=== PATIENT | female | born 1955 | race Caucasian/White ===

== ENCOUNTER 2017-05-05 11:59 | Inpatient (IN) | payer OTHER ==
[2017-05-05] VITALS (13 sets, daily range): BP systolic 75–138; BP diastolic 40–81
[~2017-05-05] VITALS: Ht 165.1 cm; Wt 49.9 kg
[2017-05-05] MEDS ORDERED: Sodium Chloride 500ML 500 ML IV ONE (12:11)
[2017-05-05 13:01] LABS: MEAN CORPUSCULAR HEMOGLOBIN 23.1 PG (27.0-31.0); MEAN CORPUSCULAR HGB CONC 30.3 G/DL (32.0-36.0); MEAN CORPUSCULAR VOLUME 76 FL (80-99); MEAN PLATELET VOLUME 5.5 FL (6.5-10.1); PLATELET COUNT 842 K/UL (150-450); RED BLOOD COUNT 2.79 M/UL (4.20-5.40); RED CELL DISTRIBUTION WIDTH 15.7 % (11.6-14.8); WHITE BLOOD COUNT 59.1 K/UL (4.8-10.8)
[2017-05-05 13:05] LABS: INR 1.2 (0.9-1.1)
[2017-05-05 13:24] LABS: APPEARANCE,URINE CLEAR; KETONES,URINE NEGATIVE (NEGATIVE); NITRITE,URINE NEGATIVE (NEGATIVE); PH,URINE 5 (4.5-8.0); PROTEIN,URINE NEGATIVE (NEGATIVE); UROBILINOGEN,URINE NORMAL MG/DL (0.0-1.0)
[2017-05-05 13:26] LABS: LEUKOCYTE ESTERASE ,URINE 2+ (NEGATIVE)
[2017-05-05 13:27] LABS: ALANINE AMINOTRANSFERASE 7 U/L (12-78); ALBUMIN/GLOBULIN RATIO 0.4 (1.0-2.7); ANION GAP 5 mmol/L (5-15); ASPARTATE AMINO TRANSFERASE 28 U/L (15-37); CALCIUM 8.5 MG/DL (8.5-10.1); CARBON DIOXIDE 30 MMOL/L (21-32); CHLORIDE 99 MMOL/L (98-107); CREATININE 0.4 MG/DL (0.55-1.30); GLOMERULAR FILTRATION RATE > 60 mL/min (>60); POTASSIUM 4.5 MMOL/L (3.5-5.1); SODIUM 134 MMOL/L (136-145); TOTAL PROTEIN 5.5 G/DL (6.4-8.2)
[2017-05-05 13:39] LABS: BAND NEUTROPHILS % (MANUAL) 2 % (0-8); BASOPHILS % (MANUAL) 0 % (0-2); EOSINOPHILS % (MANUAL) 0 % (0-3); LYMPHOCYTES % (MANUAL) 6 % (20-45); NEUTROPHILS % (MANUAL) 89 % (45-75); PLATELET ESTIMATE INCREASED; PLATELET MORPHOLOGY NORMAL; TOTAL CELLS COUNTED 100
[2017-05-05 13:40] LABS: ANISOCYTOSIS 1+; HYPOCHROMASIA 2+
[2017-05-05 13:42] LABS: BACTERIA,URINE FEW /HPF; RBC,URINE 0-2 /HPF (0 - 2); SQUAMOUS EPITHELIAL CELL,UR FEW /LPF (NONE/OCC); YEAST,URINE FEW /HPF
--- NOTE | 2017-05-05 14:42 | Emergency Room Report ---
History of Present Illness General Chief Complaint: Abnormal Labs Source: Patient, EMS Present Illness HPI 62-year-old female presents to ED for evaluation. Patient was was sent to ER for abnormal labs. Hemoglobin of 5.7. Patient has history of endometrial cancer. Patient denies any active bleeding at this time. Denies any abdominal pain. Denies any fevers or chills. Denies chest pain shortness of breath. No aggravating or leading factors. Denies any other associated symptoms Allergies: Coded Allergies: No Known Allergies (Unverified , 05/05/17) Patient History Past Medical History: DM, other - endometrial Past Surgical History: none Pertinent Family History: none Social History: Denies: smoking, alcohol use, drug use Now: No Immunizations: UTD Reviewed Nursing Documentation: PMH: Agreed, PSxH: Agreed Nursing Documentation-PMH Past Medical History: No History, Except For Hx Pacemaker: No - ANEMIA Hx Diabetes: Yes Hx Cancer: Yes - UTERINE Hx Gastrointestinal Problems: No - DVT Review of Systems All Other Systems: negative except mentioned in HPI Physical Exam Vital Signs Date Time Temp Pulse Resp B/P (MAP) Pulse Ox O2 Delivery O2 Flow Rate FiO2 05/05/17 11:59 98.8 106 16 93/59 97 Room Air Sp02 EP Interpretation: reviewed, normal General Appearance: no apparent distress, alert, GCS 15, non-toxic, cachetic Head: normocephalic, atraumatic Eyes: bilateral eye normal inspection, bilateral eye PERRL ENT: hearing grossly normal, normal pharynx, no angioedema, normal voice Neck: full range of motion, supple/symm/no masses Respiratory: chest non-tender, lungs clear, normal breath sounds, speaking full sentences Cardiovascular #1: regular rate, rhythm, no edema Cardiovascular #2: 2+ carotid (R), 2+ carotid (L), 2+ radial (R), 2+ radial (L) , 2+ dorsalis pedis (R), 2+ dorsalis pedis (L) Gastrointestinal: normal bowel sounds, non tender, soft, non-distended, no guarding, no rebound Rectal: deferred Genitourinary: normal inspection, no CVA tenderness Musculoskeletal: back normal, gait/station normal, normal range of motion, non- tender Neurologic: alert, oriented x3, responsive, motor strength/tone normal, sensory intact, speech normal Psychiatric: judgement/insight normal, memory normal, mood/affect normal, no suicidal/homicidal ideation Reflexes: 3+ bicep (R), 3+ bicep (L), 3+ tricep (R), 3+ tricep (L), 3+ knee (R) , 3+ knee (L) Skin: normal color, no rash, warm/dry, well hydrated Lymphatic: no adenopathy Medical Decision Making Diagnostic Impression: Primary Impression: Anemia Qualified Codes: D64.9 - Anemia, unspecified ER Course Hospital Course 62-year-old female presents to ED for evaluation of possible anemia, with possible transfusion Differential diagnoses include: anemia requiring transfusion, microcytic anemia , macrocytic anemia, heavy blood loss Clinical course Patient placed on stretcher. After initial history and physical I ordered labs including CBC and type and screen. Labs- WBC 59.1 hemoglobin/hematocrit 6.4, electrolytes ok 2 units PRBCs ordered. Patient hypotensive but responded to IV fluids. patient will be admitted to Dr Mayers Diagnosis - anemia Admitted to telemetry in serious condition Labs Test 05/05/17 12:30 05/05/17 13:00 White Blood Count 59.1 K/UL (4.8-10.8) Red Blood Count 2.79 M/UL (4.20-5.40) Hemoglobin 6.4 G/DL (12.0-16.0) Hematocrit 21.3 % (37.0-47.0) Mean Corpuscular Volume 76 FL (80-99) Mean Corpuscular Hemoglobin 23.1 PG (27.0-31.0) Mean Corpuscular Hemoglobin Concent 30.3 G/DL (32.0-36.0) Red Cell Distribution Width 15.7 % (11.6-14.8) Platelet Count 842 K/UL (150-450) Mean Platelet Volume 5.5 FL (6.5-10.1) Neutrophils (%) (Auto) % (45.0-75.0) Lymphocytes (%) (Auto) % (20.0-45.0) Monocytes (%) (Auto) % (1.0-10.0) Eosinophils (%) (Auto) % (0.0-3.0) Basophils (%) (Auto) % (0.0-2.0) Differential Total Cells Counted 100 Neutrophils % (Manual) 89 % (45-75) Lymphocytes % (Manual) 6 % (20-45) Monocytes % (Manual) 3 % (1-10) Eosinophils % (Manual) 0 % (0-3) Basophils % (Manual) 0 % (0-2) Band Neutrophils 2 % (0-8) Platelet Estimate Increased Platelet Morphology Normal Hypochromasia 2+ Anisocytosis 1+ Prothrombin Time 13.0 SEC (9.30-11.50) Prothromb Time International Ratio 1.2 (0.9-1.1) Activated Partial Thromboplast Time 29 SEC (23-33) Sodium Level 134 MMOL/L (136-145) Potassium Level 4.5 MMOL/L (3.5-5.1) Chloride Level 99 MMOL/L (98-107) Carbon Dioxide Level 30 MMOL/L (21-32) Anion Gap 5 mmol/L (5-15) Blood Urea Nitrogen 14 mg/dL (7-18) Creatinine 0.4 MG/DL (0.55-1.30) Estimat Glomerular Filtration Rate > 60 mL/min (>60) Glucose Level 121 MG/DL (74-106) Calcium Level 8.5 MG/DL (8.5-10.1) Total Bilirubin 0.1 MG/DL (0.2-1.0) Aspartate Amino Transf (AST/SGOT) 28 U/L (15-37) Alanine Aminotransferase (ALT/SGPT) 7 U/L (12-78) Alkaline Phosphatase 228 U/L (46-116) Troponin I 0.000 ng/mL (0.000-0.056) Total Protein 5.5 G/DL (6.4-8.2) Albumin 1.7 G/DL (3.4-5.0) Globulin 3.8 g/dL Albumin/Globulin Ratio 0.4 (1.0-2.7) Urine Color Pale yellow Urine Appearance Clear Urine pH 5 (4.5-8.0) Urine Specific [place] 1.010 (1.005-1.035) Urine Protein Negative (NEGATIVE) Urine Glucose (UA) Negative (NEGATIVE) Urine Ketones Negative (NEGATIVE) Urine Occult Blood Negative (NEGATIVE) Urine Nitrite Negative (NEGATIVE) Urine Bilirubin Negative (NEGATIVE) Urine Urobilinogen Normal MG/DL (0.0-1.0) Urine Leukocyte Esterase 2+ (NEGATIVE) Urine RBC 0-2 /HPF (0 - 2) Urine WBC 2-4 /HPF (0 - 2) Urine Squamous Epithelial Cells Few /LPF (NONE/OCC) Urine Bacteria Few /HPF (NONE) Urine Yeast Few /HPF (NONE) Last Vital Signs Date Time Temp Pulse Resp B/P (MAP) Pulse Ox O2 Delivery O2 Flow Rate FiO2 05/05/17 12:10 98.8 101 28 75/40 97 Room Air Status: improved Disposition: ADMITTED INPATIENT Condition: Serious Referrals: [facility],REFERRING (PCP) PORFIRIO HARDWICK M.D. May 05, 2017 14:42
[2017-05-05] MEDS ORDERED: GLUCAGON EMERGEN1 MG IJ (15:05)
[2017-05-05] MEDS ORDERED: MULTIPLE VITAM1 EAC6 PO (15:05)
[2017-05-05] MEDS ORDERED: ANUSOL-HC30 GM RC (15:05)
[2017-05-05] MEDS ORDERED: ELIQUIS5 MG PO (15:05)
[2017-05-05] MEDS ORDERED: MILK OF MA400 MG/51 ORAL (15:05)
[2017-05-05] MEDS ORDERED: HUMALOG KW200 UNIT/1 SQ (15:05)
[2017-05-05] MEDS ORDERED: DEXTROSE 50%-WA50 ML IV (15:05)
[2017-05-05] MEDS ORDERED: GLUCOSE BITS1 GM PO (15:05)
[2017-05-05] MEDS ORDERED: MORPHINE ORAL (15:05)
[2017-05-05] MEDS ORDERED: BACLOFEN10 MG ORAL (15:05)
[2017-05-05] MEDS ORDERED: BISACODYL5 MG ORAL (15:05)
[2017-05-05] MEDS ORDERED: FERROUS SULFAT325 MG ORAL (15:05)
[2017-05-05] MEDS ORDERED: PERCOCET 5-3251 EACH ORAL (15:06)
[2017-05-05] MEDS ORDERED: OXYCODONE HCL10 MG ORAL (15:06)
[2017-05-05] MEDS ORDERED: TRAMADOL HCL50 MG ORAL (15:16)
[2017-05-05] MEDS ORDERED: ZOFRAN 4 MG4 MG/2 ML ORAL (15:16)
[2017-05-05] MEDS ORDERED: SENOKOT8.6 MG PO (15:16)
[2017-05-05] MEDS ORDERED: Morphine Sulfate 2mg/ml Inj IVP ONE (18:00)
[2017-05-05] MEDS ORDERED: Miralax 17gm pkt ORAL PRN (20:15)
[2017-05-05] MEDS ORDERED: LORazepam Inj 2mg/ml 1ml IV PRN (20:15)
[2017-05-05] MEDS ORDERED: oxyCODONE 5mg IR tab ORAL PRN (20:15)
[2017-05-05] MEDS ORDERED: Mylanta II UD 30ml ORAL PRN (20:15)
[2017-05-05] MEDS ORDERED: Zolpidem 5mg tab ORAL PRN (20:15)
[2017-05-05] MEDS: Heparin 5000 units/ml inj SUBQ SCH (21:00)
[2017-05-05] MEDS: NovoLOG Insulin Flexpen SUBQ SCH (21:00)
[2017-05-06 00:17] VITALS: BP 120/61
[2017-05-06] MEDS: Morphine Sulfate 4mg/ml Inj IVP PRN ×5 (00:39→22:07)
[2017-05-06 04:00] VITALS: BP 131/70
[2017-05-06] MEDS: NovoLOG Insulin Flexpen SUBQ SCH ×4 (06:54→21:35)
[2017-05-06 08:19] LABS: MEAN CORPUSCULAR HEMOGLOBIN 26.9 PG (27.0-31.0); MEAN CORPUSCULAR HGB CONC 33.3 G/DL (32.0-36.0); MEAN CORPUSCULAR VOLUME 81 FL (80-99); MEAN PLATELET VOLUME 5.5 FL (6.5-10.1); PLATELET COUNT 828 K/UL (150-450); RED BLOOD COUNT 3.68 M/UL (4.20-5.40); RED CELL DISTRIBUTION WIDTH 16.9 % (11.6-14.8)
[2017-05-06 08:42] VITALS: BP 139/79
[2017-05-06 09:00] LABS: ALANINE AMINOTRANSFERASE 7 U/L (12-78); ALBUMIN/GLOBULIN RATIO 0.4 (1.0-2.7); ANION GAP 9 mmol/L (5-15); ASPARTATE AMINO TRANSFERASE 12 U/L (15-37); CALCIUM 8.4 MG/DL (8.5-10.1); CARBON DIOXIDE 26 MMOL/L (21-32); CHLORIDE 100 MMOL/L (98-107); CHOLESTEROL 126 MG/DL (< 200); CHOLESTEROL/HDL RATIO 6.3 (3.3-4.4); CREATININE 0.4 MG/DL (0.55-1.30); GLOMERULAR FILTRATION RATE > 60 mL/min (>60); POTASSIUM 3.5 MMOL/L (3.5-5.1); SODIUM 135 MMOL/L (136-145); TOTAL PROTEIN 6.1 G/DL (6.4-8.2)
[2017-05-06] MEDS: Heparin 5000 units/ml inj SUBQ SCH ×2 (09:00→21:00)
[2017-05-06 11:02] LABS: ANISOCYTOSIS 1+; BAND NEUTROPHILS % (MANUAL) 2 % (0-8); BASOPHILS % (MANUAL) 0 % (0-2); EOSINOPHILS % (MANUAL) 0 % (0-3); HYPOCHROMASIA 1+; LYMPHOCYTES % (MANUAL) 4 % (20-45); NEUTROPHILS % (MANUAL) 89 % (45-75); PLATELET ESTIMATE INCREASED; PLATELET MORPHOLOGY NORMAL; TOTAL CELLS COUNTED 100
[2017-05-06 12:09] VITALS: BP 131/79
--- NOTE | 2017-05-06 13:52 | History and Physical ---
History of Present Illness General Date patient seen: May 05, 2017 Reason for Hospitalization: Abnormal Labs Present Illness HPI 62-year-old female with DM, endometrium malignancy, bed bound, DVT, Decubiti ulcers. presents to ED for evaluation of Hemoglobin of 5.7. Denies any abdominal pain. Denies any fevers or chills. Denies chest pain shortness of breath. Blood tranfusion has been ordered Allergies: Coded Allergies: No Known Allergies (Unverified , 05/05/17) Medication History Scheduled Apixaban (Eliquis), 5 MG PO BID, (Reported) Baclofen* (Baclofen*), 10 MG ORAL EVERY 12 HOURS, (Reported) Ferrous Sulfate* (Ferrous Sulfate*), 325 MG ORAL TWICE A DAY, (Reported) Insulin Lispro (Humalog Kwikpen), 6 UNITS SQ BEFORE MEALS AND HS, (Reported) Multivitamin (Multiple Vitamins), 1 EACH PO DAILY, (Reported) Scheduled PRN Bisacodyl* (Dulcolax*), 5 MG ORAL DAILY PRN for Constipation, (Reported) Dextrose (Glucose Bits), 1 GM PO NEEDED PRN for LOW BLOOD SUGAR, (Reported) Dextrose 50 % in Water (Dextrose 50%-Water Syringe), 50 ML IV NEEDED PRN for Hypoglycemia, (Reported) Glucagon,Human Recombinant (Glucagon Emergency Kit), 1 MG IJ NEEDED PRN for LOW BLOOD SUGAR, (Reported) Hydrocortisone Hc 2.5% Cream (Anusol-Hc 2.5% Cream), 30 GM RC EVERY 6 HOURS PRN for Hemorroidal Pain, (Reported) Magnesium Hydroxide* (Milk Of Magnesia*), 15 ML ORAL DAILY PRN for Constipation, (Reported) Ondansetron* (Zofran*), 4 MG ORAL Q6H PRN for Nausea & Vomiting, (Reported) Oxycodone Hcl* (Oxycodone Hcl*), 10 MG ORAL Q4H PRN for For Pain, (Reported) Oxycodone/Acetaminophen 5-325* (Percocet 5-325 Mg Tablet*), 2 TAB ORAL Q4H PRN for For Pain, (Reported) Sennosides (Senokot), 2 TAB PO EVERY 24 HOURS PRN for Constipation, (Reported) Tramadol Hcl* (Ultram*), 50 MG ORAL Q6H PRN for For Pain, (Reported) [Morphine], 2 MG ORAL EVERY 4 HOURS PRN for For Pain, (Reported) Patient History Healthcare decision maker Krystal Resuscitation status Full Code Advanced Directive on File No Past Medical/Surgical History Past Medical/Surgical History: (1) Endometrial cancer (2) Diabetes mellitus Review of Systems All Other Systems: negative except mentioned in HPI Physical Exam General Appearance: WD/WN Lines, tubes and drains: peripheral HEENT: normocephalic, atraumatic Neck: non-tender, normal alignment Respiratory/Chest: chest wall non-tender, lungs clear Breasts: no masses Cardiovascular/Chest: normal peripheral pulses Abdomen: normal bowel sounds, non tender Genitourinary/Rectal: normal genital exam, normal rectal exam Last 24 Hour Vital Signs Date Time Temp Pulse Resp B/P (MAP) Pulse Ox O2 Delivery O2 Flow Rate FiO2 05/06/17 12:09 97.5 98 18 131/79 97 Room Air 05/06/17 08:42 97.7 100 18 139/79 96 Room Air 05/06/17 04:00 97.6 101 20 131/70 94 Room Air 05/06/17 04:00 100 05/06/17 00:17 97.4 97 19 120/61 94 Room Air 05/06/17 00:00 111 05/05/17 20:40 97.2 98 22 118/68 96 Room Air 05/05/17 20:17 97.4 101 18 125/65 94 Room Air 05/05/17 20:00 98 05/05/17 18:55 97.9 99 18 120/60 94 Room Air 05/05/17 18:20 98.3 104 24 126/61 99 Room Air 05/05/17 18:08 104 24 126/61 99 Room Air 05/05/17 17:30 98.3 99 20 135/64 96 Room Air 05/05/17 17:00 98.1 99 20 134/59 96 Room Air 05/05/17 16:45 98.1 99 24 121/51 97 Room Air 05/05/17 16:02 98.1 97 24 128/81 96 Room Air 05/05/17 15:30 98.1 98 25 129/60 96 Room Air 05/05/17 15:13 98.3 100 18 137/61 97 Room Air 05/05/17 15:08 98.1 101 25 126/58 97 Room Air 05/05/17 15:02 98.1 103 23 138/61 98 Room Air 05/05/17 14:59 98.1 100 21 Intake and Output 05/06/17 05/07/17 19:00 07:00 Intake Total 120 ml Balance 120 ml Intake Oral 120 ml Laboratory Tests Test 05/06/17 07:25 White Blood Count 54.0 K/UL (4.8-10.8) *H Red Blood Count 3.68 M/UL (4.20-5.40) L Hemoglobin 9.9 G/DL (12.0-16.0) #L Hematocrit 29.8 % (37.0-47.0) #L Mean Corpuscular Volume 81 FL (80-99) Mean Corpuscular Hemoglobin 26.9 PG (27.0-31.0) L Mean Corpuscular Hemoglobin Concent 33.3 G/DL (32.0-36.0) Red Cell Distribution Width 16.9 % (11.6-14.8) H Platelet Count 828 K/UL (150-450) H Mean Platelet Volume 5.5 FL (6.5-10.1) L Neutrophils (%) (Auto) % (45.0-75.0) Lymphocytes (%) (Auto) % (20.0-45.0) Monocytes (%) (Auto) % (1.0-10.0) Eosinophils (%) (Auto) % (0.0-3.0) Basophils (%) (Auto) % (0.0-2.0) Differential Total Cells Counted 100 Neutrophils % (Manual) 89 % (45-75) H Lymphocytes % (Manual) 4 % (20-45) L Monocytes % (Manual) 5 % (1-10) Eosinophils % (Manual) 0 % (0-3) Basophils % (Manual) 0 % (0-2) Band Neutrophils 2 % (0-8) Platelet Estimate Increased H Platelet Morphology Normal Hypochromasia 1+ Anisocytosis 1+ Sodium Level 135 MMOL/L (136-145) L Potassium Level 3.5 MMOL/L (3.5-5.1) Chloride Level 100 MMOL/L (98-107) Carbon Dioxide Level 26 MMOL/L (21-32) Anion Gap 9 mmol/L (5-15) Blood Urea Nitrogen 11 mg/dL (7-18) Creatinine 0.4 MG/DL (0.55-1.30) L Estimat Glomerular Filtration Rate > 60 mL/min (>60) Glucose Level 118 MG/DL (74-106) H Calcium Level 8.4 MG/DL (8.5-10.1) L Total Bilirubin 0.4 MG/DL (0.2-1.0) Aspartate Amino Transf (AST/SGOT) 12 U/L (15-37) L Alanine Aminotransferase (ALT/SGPT) 7 U/L (12-78) L Alkaline Phosphatase 208 U/L (46-116) H Total Protein 6.1 G/DL (6.4-8.2) L Albumin 1.6 G/DL (3.4-5.0) L Globulin 4.5 g/dL Albumin/Globulin Ratio 0.4 (1.0-2.7) L Triglycerides Level 162 MG/DL (0-200) Cholesterol Level 126 MG/DL (< 200) LDL Cholesterol 84 mg/dL (<100) HDL Cholesterol 20 MG/DL (40-60) L Cholesterol/HDL Ratio 6.3 (3.3-4.4) H Height (Feet): 5 Height (Inches): 5.00 Weight (Pounds): 110 Medications Current Medications Medications (Trade) Dose Ordered Sig/[place] Route PRN Reason Start Time Stop Time Status Last Admin Dose Admin Acetaminophen (Tylenol) 650 mg Q4H PRN ORAL fever 05/05/17 20:15 06/04/17 20:14 Al Hydroxide/Mg Hydroxide (Mylanta II) 30 ml Q6H PRN ORAL dyspepsia 05/05/17 20:15 06/04/17 20:14 Baclofen (Lioresal) 10 mg EVERY 12 HOURS ORAL 05/05/17 21:00 06/04/17 20:59 05/06/17 08:23 Dextrose (Dextrose 50%) STAT PRN IV Hypoglycemia 05/05/17 20:15 06/04/17 20:14 Heparin Sodium (Porcine) (Heparin 5000 units/ml) 5,000 units EVERY 12 HOURS SUBQ 05/05/17 21:00 06/04/17 20:59 Insulin Aspart (NovoLOG) BEFORE MEALS AND HS SUBQ 05/05/17 21:00 06/04/17 20:59 05/06/17 12:52 Lorazepam (Ativan 2mg/ml 1ml) 0.5 mg Q4H PRN IV For Anxiety 05/05/17 20:15 05/12/17 20:14 Morphine Sulfate (Morphine Sulfate) 1 mg Q4H PRN IVP For Severe Pain 05/05/17 20:15 05/12/17 20:14 05/06/17 13:15 Ondansetron HCl (Zofran) 4 mg Q6H PRN IVP Nausea & Vomiting 05/05/17 20:15 06/04/17 20:14 Oxycodone HCl (Roxicodone) 10 mg Q4H PRN ORAL For Moderate Pain 05/05/17 20:15 05/12/17 20:14 05/06/17 03:45 Polyethylene Glycol (Miralax) 17 gm HSPRN PRN ORAL Constipation 05/05/17 20:15 06/04/17 20:14 Zolpidem Tartrate (Ambien) 5 mg HSPRN PRN ORAL Insomnia 05/05/17 20:15 05/12/17 20:14 Assessment/Plan Problem List: (1) Anemia ICD Codes: D64.9 - Anemia, unspecified SNOMED: 635871928 Qualifiers: Qualified Codes: D64.9 - Anemia, unspecified (2) Leukocytosis ICD Codes: D72.829 - Elevated white blood cell count, unspecified SNOMED: 287995263, 360541372 (3) Diabetes mellitus ICD Codes: E11.9 - Type 2 diabetes mellitus without complications SNOMED: 46904605 (4) Endometrial cancer ICD Codes: C54.1 - Malignant neoplasm of endometrium SNOMED: 841293466 Assessment/Plan prbc anemia w/u sepsis w/u wound care end of life discussion. RIN CALDWELL May 06, 2017 13:52
[2017-05-06] MEDS ORDERED: Amikacin Rx to dose MISC PRN (14:00)
--- NOTE | 2017-05-06 15:25 | Cardiology Report ---
APPROVED REPORT EKG Measurement Heart [id number] ND [id number] Sinus tachycardia Low voltage QRS Nonspecific T wave abnormality Abnormal ECG
[2017-05-06] MEDS ORDERED: Amikacin 750 MG in NS 110 ML IV SCH (15:30)
[2017-05-06 16:17] VITALS: BP 125/63
[2017-05-06] MEDS ORDERED: Vancomycin 1gm/D5W 275ml IVPB ONE ×2 (16:30)
[2017-05-06] MEDS ORDERED: Warfarin Sodium 5mg ORAL ONE (17:00)
--- NOTE | 2017-05-06 17:15 | General Progress Note ---
Subjective Allergies: Coded Allergies: No Known Allergies (Unverified , 05/05/17) Subjective Consult Note to follow Recommend to consider bone marrow biopsy in setting of elevated wbc and platelet count Recommend IVc filter in setting of acute thrombus and anemia Objective Last 24 Hour Vital Signs Date Time Temp Pulse Resp B/P (MAP) Pulse Ox O2 Delivery O2 Flow Rate FiO2 05/06/17 16:17 97.2 96 18 125/63 95 Room Air 05/06/17 12:09 97.5 98 18 131/79 97 Room Air 05/06/17 08:42 97.7 100 18 139/79 96 Room Air 05/06/17 04:00 97.6 101 20 131/70 94 Room Air 05/06/17 04:00 100 05/06/17 00:17 97.4 97 19 120/61 94 Room Air 05/06/17 00:00 111 05/05/17 20:40 97.2 98 22 118/68 96 Room Air 05/05/17 20:17 97.4 101 18 125/65 94 Room Air 05/05/17 20:00 98 05/05/17 18:55 97.9 99 18 120/60 94 Room Air 05/05/17 18:20 98.3 104 24 126/61 99 Room Air 05/05/17 18:08 104 24 126/61 99 Room Air 05/05/17 17:30 98.3 99 20 135/64 96 Room Air Intake and Output 05/06/17 05/07/17 19:00 07:00 Intake Total 240 ml Balance 240 ml Intake Oral 240 ml Laboratory Tests 05/06/17 07:25: White Blood Count 54.0*H, Red Blood Count 3.68L, Hemoglobin 9.9#L, Hematocrit 29.8#L, Mean Corpuscular Volume 81, Mean Corpuscular Hemoglobin 26.9L, Mean Corpuscular Hemoglobin Concent 33.3, Red Cell Distribution Width 16.9H, Platelet Count 828H, Mean Platelet Volume 5.5L, Neutrophils (%) (Auto) , Lymphocytes (%) (Auto) , Monocytes (%) (Auto) , Eosinophils (%) (Auto) , Basophils (%) (Auto) , Differential Total Cells Counted 100, Neutrophils % ( Manual) 89H, Lymphocytes % (Manual) 4L, Monocytes % (Manual) 5, Eosinophils % ( Manual) 0, Basophils % (Manual) 0, Band Neutrophils 2, Platelet Estimate IncreasedH, Platelet Morphology Normal, Hypochromasia 1+, Anisocytosis 1+, Sodium Level 135L, Potassium Level 3.5, Chloride Level 100, Carbon Dioxide Level 26, Anion Gap 9, Blood Urea Nitrogen 11, Creatinine 0.4L, Estimat Glomerular Filtration Rate > 60, Glucose Level 118H, Calcium Level 8.4L, Total Bilirubin 0.4, Aspartate Amino Transf (AST/SGOT) 12L, Alanine Aminotransferase ( ALT/SGPT) 7L, Alkaline Phosphatase 208H, Total Protein 6.1L, Albumin 1.6L, Globulin 4.5, Albumin/Globulin Ratio 0.4L, Triglycerides Level 162, Cholesterol Level 126, LDL Cholesterol 84, HDL Cholesterol 20L, Cholesterol/HDL Ratio 6.3H Height (Feet): 5 Height (Inches): 5.00 Weight (Pounds): 110 Yong Jeong May 06, 2017 17:15
[2017-05-06] MEDS ORDERED: Tubing IV Secondary IV ONE (17:31)
[2017-05-06] MEDS ORDERED: D5W 275ml ONE (17:31)
[2017-05-06] MEDS: Piperacillin/Tazobactam 3.375 GM in NS 110 ML IVPB SCH (19:02)
[2017-05-06 19:03] LABS: MEAN CORPUSCULAR HEMOGLOBIN 25.6 PG (27.0-31.0); MEAN CORPUSCULAR HGB CONC 31.6 G/DL (32.0-36.0); MEAN CORPUSCULAR VOLUME 81 FL (80-99); MEAN PLATELET VOLUME 5.4 FL (6.5-10.1); PLATELET COUNT 910 K/UL (150-450); RED BLOOD COUNT 3.89 M/UL (4.20-5.40); RED CELL DISTRIBUTION WIDTH 17.2 % (11.6-14.8)
[2017-05-06 19:13] LABS: WHITE BLOOD COUNT 53.7 K/UL (4.8-10.8)
--- NOTE | 2017-05-06 19:35 | Consultation ---
Consult Note Consult Note ID CONSULT: Dict# [id number] Assessment/Plan ASSESSMENT: 62 y/o female with: // Possible GNR UTI vs colonization - C&S pending, no sig pyuria or bacteruria // Stage IV sacral decubitus ulcer POA, not grossly infected - surveillance WCx pending // Leukocytosis, severe, afebrile r/o infection vs leukemoid vs myeloproliferative d/o - heme following, Jak2 pending, plan possible BMBx ( CA , DVT contributing ) - no localizing s/sx infection // Severe symptomatic microcytic anemia SP PRBCs - denies blood loss // Acute and chronic RLE DVT // Endometrial CA - no treatment to date // Thrombocytosis // DM2 // Physical deconditioning // NKDA // Full Code PLAN: - continue empiric IV vancomycin, zosyn d# 1 for now. Can DC amikacin d# 1 - consider BMBx, IVC filter - f/u cultures - f/u Jak2 - monitor CBC, temperatures - monitor BMP - transfuse as needed - wound care - PT/OT Thanks! Will follow ANA VALDEZ May 06, 2017 19:35
[2017-05-06 20:00] VITALS: BP 126/67
[2017-05-06 20:26] LABS: BAND NEUTROPHILS % (MANUAL) 1 % (0-8); LYMPHOCYTES % (MANUAL) 8 % (20-45); NEUTROPHILS % (MANUAL) 89 % (45-75); TOTAL CELLS COUNTED 100
[2017-05-06 20:27] LABS: ANISOCYTOSIS 1+; BASOPHILS % (MANUAL) 0 % (0-2); EOSINOPHILS % (MANUAL) 0 % (0-3); HYPOCHROMASIA 1+; PLATELET ESTIMATE INCREASED; PLATELET MORPHOLOGY NORMAL
--- NOTE | 2017-05-06 23:27 | Diagnostic Imaging Report ---
APPROVED REPORT CPT Code: 82716 Present Symptoms Comments: Pain RIGHT LEG: Venous imaging reveals acute thrombus in the proximal to distal superficial femoral vein. Venous imaging also reveals recanalized chronic thrombus in the superficial femoral vein. Large collateral vein noted anterior to the superficial femoral artery. The common femoral vein is patent. Greater saphenous vein also within normal limits. The popliteal and calf veins were not imaged (patient refused). KOBE Shelby was notified of abnormal results at 1425 hours.
[2017-05-07] VITALS (7 sets, daily range): BP systolic 116–143; BP diastolic 59–85
--- NOTE | 2017-05-07 02:45 | Consultation ---
DATE OF CONSULTATION: 05/06/2017 INFECTIOUS DISEASES CONSULTATION CONSULTING PHYSICIAN: Joe Soriano M.D. REQUESTING PHYSICIAN: Rin Mayers M.D. REASON FOR CONSULTATION: Leukocytosis. HISTORY OF PRESENT ILLNESS: This is a 62-year-old female, jail resident with a history of diabetes and endometrial cancer, presents to emergency room for evaluation of abnormal labs. Her hemoglobin was found to be less than 6. Repeat hemoglobin in the emergency room was 6.4. She was transfused packed red blood cells. She has serologic abnormalities including severe leukocytosis of more than 50 and thrombocytosis of more than 900. Urine culture is growing greater than 100,000 colony-forming units of Gram-negative rods, but urinalysis does not have significant pyuria or bacteriuria. She has a stage IV sacral decubitus ulcer that appears clean and surveillance wound culture is pending. She has evidence of acute and chronic right lower extremity DVT. The patient denies any localizing signs or symptoms of infection. She has been started on empiric IV vancomycin, Zosyn, and amikacin and Infectious Diseases now consulted to assist in management. PAST MEDICAL HISTORY: 1. Diabetes. 2. Endometrial cancer, no treatment to date. 3. Physical deconditioning. 4. Stage IV sacral decubitus ulcer. ALLERGIES: No known drug allergies. MEDICATIONS: 1. Vancomycin. 2. Zosyn. 3. Amikacin. FAMILY HISTORY: Reviewed and noncontributory. SOCIAL HISTORY: The patient is resident of a assisted facility. No active tobacco, alcohol, or illicit drug abuse. REVIEW OF SYSTEMS: As per history of present illness. Ten systems reviewed, all pertinent positives and negatives noted. PHYSICAL EXAMINATION: VITAL SIGNS: Maximum temperature 98.8, blood pressure 125/63, heart rate 96, respiratory rate 18, and saturating 95% on room air. GENERAL: No apparent distress, nontoxic appearing, thin. CARDIOVASCULAR: Regular rate and rhythm. No murmurs. PULMONARY: Clear to auscultation bilaterally. ABDOMEN: Bowel sounds present. Soft, nondistended, and nontender. EXTREMITIES: No edema. SKIN: No rash. Stage IV sacral decubitus ulcer appears clean. NEUROLOGICAL: Alert and oriented x3. LABORATORY DATA: White blood cell count 53.7 decreased from 59.1 with left shift, hemoglobin 9.9, increased from 6.4, and platelets 910,000. Sodium 135, potassium 3.5, chloride 100, bicarbonate 26, BUN 11, creatinine 0.4, and glucose 118. Troponin negative x1. Urinalysis negative. MICROBIOLOGY: 1. 05/05/2017 urine culture greater than 100,000 colony-forming units of Gram-negative rods. 2. 05/06/2017 wound culture pending. IMAGIN05/06/2017, acute and chronic right lower extremity DVT. ASSESSMENT: 1. Possible Gram-negative salome urinary tract infection versus colonization. Culture and sensitivity is pending and she has no significant pyuria or bacteriuria. She does have a Reyes catheter in place. 2. Stage IV sacral decubitus ulcer, present on admission and not grossly infected. Surveillance wound culture is pending. 3. Leukocytosis, severe and afebrile, rule out infection versus leukemoid versus myeloproliferative disorder. Hematology is following and JAK2 assay is pending and there is plan for possible bone marrow biopsy. Her cancer and deep venous thrombosis are contributing. She has no localizing signs or symptoms of infection. 4. Severe symptomatic microcytic anemia, status post transfusion. The patient denies blood loss. 5. Acute on chronic right lower extremity deep venous thrombosis. 6. Endometrial cancer with no treatment to date. 7. Thrombocytosis. 8. Diabetes type 2. 9. Physical deconditioning. 10. No known drug allergies. 11. Full Code. PLAN: 1. Continue empiric IV vancomycin and Zosyn day #1 for now. Discontinue amikacin. 2. Consider bone marrow biopsy and IVC filter. 3. Follow up cultures. 4. Follow objective. 5. Monitor CBC and temperatures. 6. Monitor BMP. 7. Transfuse as needed. 8. Wound care. 9. Physical and occupational therapy. Thank you. We will follow. Joe Soriano M.D. DR: Felipe JOB#: [id number] CC: Chanell Burnett M.D ; FAX#: [phone] RIN MAYERS M.D.; FAX#: [phone]
[2017-05-07] MEDS: Morphine Sulfate 4mg/ml Inj IVP PRN ×3 (03:21→19:57)
[2017-05-07] MEDS: Vancomycin 750mg/NS 250ml IVPB SCH ×3 (04:39→19:30)
[2017-05-07] MEDS: NovoLOG Insulin Flexpen SUBQ SCH ×4 (06:49→21:16)
[2017-05-07] MEDS: Piperacillin/Tazobactam 3.375 GM in NS 110 ML IVPB SCH ×3 (07:02→22:33)
--- NOTE | 2017-05-07 07:24 | Wound Care Consultation ---
Wound Assessment Wound Assessment #1: Wound Number: 1 Wound Present on Admission: Yes New Wound: No Status Change of Wound: No Wound Location Body Site Modif: mid Wound Location Body Site: sacral Wound Type: pressure ulcer Eli Test: Does not Eli Pressure Ulcer Stage: Unstageable Wound Thickness: Full Thickness Wound Length: 3.5 Wound Width: 2.5 Wound Depth: utd Percent of Wound [place]/Red: 60 Percent of Wound Bed Yellow/Wh: 40 Wound Drainage Description: Serosanguineous Wound Drainage Amount: Moderate Wound Drainage Odor: None/Absent Tissue Surrounding Wound: Macerated Wound General Appearance: Reddened - yellow, Draining Wound Assessment #2: Wound Number: 2 Wound Present on Admission: Yes New Wound: No Status Change of Wound: No Wound Location Body Site Modif: right Wound Location Body Site: trochanter Wound Type: pressure ulcer Eli Test: Does not Eli Pressure Ulcer Stage: Deep Tissue Injury Wound Thickness: Full Thickness Wound Length: 5.0 Wound Width: 3.5 Wound Depth: utd Percent of Wound Purple/Maroon: 100 Wound Drainage Amount: None Wound Drainage Odor: None/Absent Tissue Surrounding Wound: Erythemic Wound General Appearance: Reddened - purple Wound Assessment #3: Wound Number: 3 Wound Present on Admission: Yes New Wound: No Status Change of Wound: No Wound Location Body Site Modif: left Wound Location Body Site: buttocks Wound Type: pressure ulcer Eli Test: Does not Eli Pressure Ulcer Stage: Deep Tissue Injury Wound Thickness: Full Thickness Wound Length: 2.0 Wound Width: 3.5 Wound Depth: utd Percent of Wound Purple/Maroon: 100 Wound Drainage Amount: None Wound Drainage Odor: None/Absent Tissue Surrounding Wound: Erythemic Wound General Appearance: Reddened Wound Comment #1 Sacral unstageable pressure ulcer #2 Left buttock DTI pressure ulcer #3 Right trochanter DTI pressure ulcer Recommendation -Sacral unstageable pressure ulcer Cleanse with saline, pat dry, apply Therahoney Gel to wound bed, cover with Biatain silicone daily and PRN soiled/dislodged -Local wound care per protocol for DTI pressure ulcer -Keep clean and dry -Optimize nutrition -Turn and reposition -Offload both heels -Heel protector on both heels -Low air loss mattress -Assess and f/u accordingly for any changes MARÍA REYES RN May 07, 2017 07:24
[2017-05-07 08:05] LABS: MEAN CORPUSCULAR HEMOGLOBIN 25.9 PG (27.0-31.0); MEAN CORPUSCULAR HGB CONC 31.9 G/DL (32.0-36.0); MEAN CORPUSCULAR VOLUME 81 FL (80-99); MEAN PLATELET VOLUME 5.4 FL (6.5-10.1); PLATELET COUNT 861 K/UL (150-450); RED BLOOD COUNT 3.81 M/UL (4.20-5.40); RED CELL DISTRIBUTION WIDTH 17.5 % (11.6-14.8)
[2017-05-07 08:16] LABS: WHITE BLOOD COUNT 47.3 K/UL (4.8-10.8)
[2017-05-07 08:20] LABS: INR 1.1 (0.9-1.1); PROTHROMBIN TIME 11.7 SEC (9.30-11.50)
[2017-05-07 08:42] LABS: ALANINE AMINOTRANSFERASE 6 U/L (12-78); ALBUMIN/GLOBULIN RATIO 0.4 (1.0-2.7); ANION GAP 8 mmol/L (5-15); ASPARTATE AMINO TRANSFERASE 12 U/L (15-37); CALCIUM 8.9 MG/DL (8.5-10.1); CARBON DIOXIDE 28 MMOL/L (21-32); CHLORIDE 101 MMOL/L (98-107); CREATININE 0.4 MG/DL (0.55-1.30); GLOMERULAR FILTRATION RATE > 60 mL/min (>60); LACTATE DEHYDROGENASE 176 U/L (81-234); POTASSIUM 3.4 MMOL/L (3.5-5.1); SODIUM 137 MMOL/L (136-145); TOTAL PROTEIN 5.9 G/DL (6.4-8.2)
[2017-05-07 08:58] LABS: IRON 14 ug/dL (50-175); TOTAL IRON BINDING CAPACITY 123 ug/dL (250-450)
[2017-05-07] MEDS: Heparin 5000 units/ml inj SUBQ SCH ×2 (09:00→21:14)
--- NOTE | 2017-05-07 09:00 | Consultation ---
DATE OF CONSULTATION: 05/06/2017 HEMATOLOGY/ONCOLOGY CONSULTATION CONSULTING PHYSICIAN: Yong Jeong M.D. REQUESTING PHYSICIAN: Margarita Mayers M.D. REASON FOR CONSULTATION: Evaluation of anemia and leukocytosis. IDENTIFICATION DATA: Dear Dr. Mayers, The patient is a pleasant 62-year-old female with history of DVT, endometrial malignancy, and diabetes mellitus, presents with a hemoglobin of 5.7 as well as leukocytosis of approximately 50,000, in addition has evidence of DVT. Hematology service is consulted for further evaluation and treatment to rule out malignancy. The patient also noted to have evidence of thrombocytosis as well and has been started on Coumadin at this time. PAST MEDICAL HISTORY: Endometrial cancer, diabetes mellitus. PAST SURGICAL HISTORY: None noted. ALLERGIES: No known drug allergies. SOCIAL HISTORY: No alcohol, tobacco, or illicit drug use. REVIEW OF SYSTEMS: CONSTITUTIONAL: No fevers, chills, or night sweats. SKIN: No rashes, bumps, or itching. HEENT: No headache, hearing or vision changes. BREASTS: No lumps, pain, or discharge. PULMONARY: No cough, sputum, or shortness of breath. GASTROINTESTINAL: No nausea, vomiting, or diarrhea. GENITOURINARY: No dysuria, frequency, or urgency. MUSCULOSKELETAL: No joint swelling, muscle pain, or trauma. PHYSICAL EXAMINATION: GENERAL: The patient is in no acute distress. VITAL SIGNS: Temperature 97 degrees Fahrenheit, pulse of 96, respiratory rate 12, blood pressure 127/62, and pulse oximetry 95% on room air. PULMONARY: Decreased breath sounds. CARDIOVASCULAR: Regular rate. No S3 or S4. ABDOMEN: Soft, nontender, and nondistended. EXTREMITIES: There is 1+ edema. LABORATORY DATA: WBC 55,000, hemoglobin 9.9, hematocrit 30, and platelet count 03:46. INR is 1.2. BUN 03:52 and creatinine 0.4. Urinalysis reviewed. IMAGING: Reveals acute thrombus in the proximal superficial femoral vein 04:04 on the right side. Chronic thrombus noted in the area. ASSESSMENT AND RECOMMENDATIONS: 1. Leukocytosis in the setting of thrombocytosis. 04:23 acute process concerning for underlying bone marrow disorder such as polycythemia vera versus essential thrombocytosis. We will recommend a bone marrow biopsy. We will discuss with Pathology service. 2. Anemia, secondary to chronic disease. Anemia workup has been ordered and results at this time are pending. 3. Thrombocytosis, rule out polycythemia vera. JAK2 is pending as well. 4. Deep venous thrombosis of the right leg 05:03 anemia at this time. Continue to closely monitor anemia and begin warfarin and heparin drip. Again, this will need to be monitored closely. 5. Endometrial carcinoma. We will need to further evaluate. 6. Bedbound status. 7. Diabetes mellitus. Recommend at this time conservative care if on bone marrow biopsy discovered any evidence of malignancy. I appreciate the consultation. Yong Jeong M.D. DR: Jefe JOB#: [id number] CC:
[2017-05-07 09:51] LABS: ERYTHROCYTE SEDIMENTATION RATE 56 MM/HR (0-30); PATH BLOOD SMEAR/OMC SENT TO PATHOLOGIST
[2017-05-07 09:59] LABS: ANISOCYTOSIS 1+; BAND NEUTROPHILS % (MANUAL) 3 % (0-8); BASOPHILS % (MANUAL) 0 % (0-2); EOSINOPHILS % (MANUAL) 0 % (0-3); HYPOCHROMASIA 1+; LYMPHOCYTES % (MANUAL) 6 % (20-45); MICROCYTES 1+; NEUTROPHILS % (MANUAL) 87 % (45-75); PLATELET ESTIMATE INCREASED; PLATELET MORPHOLOGY NORMAL; TOTAL CELLS COUNTED 100
--- NOTE | 2017-05-07 10:32 | General Progress Note ---
Assessment/Plan Assessment/Plan ASSESSMENT AND RECOMMENDATIONS: #. Leukocytosis in the setting of thrombocytosis. Likely is related to infection --> continue antibiotics and monitor #. Anemia, secondary to chronic disease. ==> Anemia workup has been ordered and results at this time are pending. #. Thrombocytosis, rule out polycythemia vera. JAK2 is pending as well. ==> hold off on bone marrow biopsy, likely will self resolve #. Deep venous thrombosis of the right leg Recommend conservative care, do not place ivc filter given patient asymptomatic # Endometrial carcinoma. Will need outpatient w/u # Bedbound status. # Diabetes mellitus. # Recommend conservative care. Subjective Constitutional: Reports: no symptoms HEENT: Reports: no symptoms Cardiovascular: Reports: no symptoms Respiratory: Reports: no symptoms Gastrointestinal/Abdominal: Reports: no symptoms Neurologic/Psychiatric: Reports: no symptoms Endocrine: Reports: no symptoms Allergies: Coded Allergies: No Known Allergies (Unverified , 05/05/17) Subjective appears to have infection, wbc is elevated Objective Last 24 Hour Vital Signs Date Time Temp Pulse Resp B/P (MAP) Pulse Ox O2 Delivery O2 Flow Rate FiO2 05/07/17 08:03 97.3 92 20 122/65 99 Nasal Cannula 2.0 05/07/17 04:07 97.9 97 20 120/64 99 Nasal Cannula 05/07/17 04:00 96 05/07/17 00:00 97.9 68 20 125/67 98 Nasal Cannula 2.0 05/07/17 00:00 98 05/06/17 20:00 98.1 90 20 126/67 99 Nasal Cannula 2.0 05/06/17 20:00 96 05/06/17 16:17 97.2 96 18 125/63 95 Room Air 05/06/17 16:00 97 05/06/17 12:09 97.5 98 18 131/79 97 Room Air 05/06/17 12:00 87 Intake and Output 05/07/17 05/08/17 19:00 07:00 Intake Total 200 ml Balance 200 ml Intake Oral 200 ml Laboratory Tests 05/06/17 18:15: White Blood Count 53.7*H, Red Blood Count 3.89L, Hemoglobin 9.9L, Hematocrit 31.5L, Mean Corpuscular Volume 81, Mean Corpuscular Hemoglobin 25.6L, Mean Corpuscular Hemoglobin Concent 31.6L, Red Cell Distribution Width 17.2H, Platelet Count 910H, Mean Platelet Volume 5.4L, Neutrophils (%) (Auto) , Lymphocytes (%) (Auto) , Monocytes (%) (Auto) , Eosinophils (%) (Auto) , Basophils (%) (Auto) , Differential Total Cells Counted 100, Neutrophils % ( Manual) 89H, Lymphocytes % (Manual) 8L, Monocytes % (Manual) 2, Eosinophils % ( Manual) 0, Basophils % (Manual) 0, Band Neutrophils 1, Platelet Estimate IncreasedH, Platelet Morphology Normal, Hypochromasia 1+, Anisocytosis 1+, Jak2 V617F Mutation Detection [Pending], JAK2 V617F Mutation Background [Pending], JAK2 V617F Reviewed By [Pending] 05/07/17 07:05: White Blood Count 47.3*H, Red Blood Count 3.81L, Hemoglobin 9.9L, Hematocrit 30.9L, Mean Corpuscular Volume 81, Mean Corpuscular Hemoglobin 25.9L, Mean Corpuscular Hemoglobin Concent 31.9L, Red Cell Distribution Width 17.5H, Platelet Count 861H, Mean Platelet Volume 5.4L, Neutrophils (%) (Auto) , Lymphocytes (%) (Auto) , Monocytes (%) (Auto) , Eosinophils (%) (Auto) , Basophils (%) (Auto) , Differential Total Cells Counted 100, Neutrophils % ( Manual) 87H, Lymphocytes % (Manual) 6L, Monocytes % (Manual) 4, Eosinophils % ( Manual) 0, Basophils % (Manual) 0, Band Neutrophils 3, Platelet Estimate IncreasedH, Platelet Morphology Normal, Hypochromasia 1+, Anisocytosis 1+, Microcytosis 1+, Erythrocyte Sedimentation Rate 56H, Reticulocyte Count [Pending ], Prothrombin Time 11.7H, Prothromb Time International Ratio 1.1, Activated Partial Thromboplast Time 27, Sodium Level 137, Potassium Level 3.4L, Chloride Level 101, Carbon Dioxide Level 28, Anion Gap 8, Blood Urea Nitrogen 8, Creatinine 0.4L, Estimat Glomerular Filtration Rate > 60, Glucose Level 129H, Calcium Level 8.9, Iron Level 14L, Total Iron Binding Capacity 123L, Percent Iron Saturation 11L, Unsaturated Iron Binding 109L, Total Bilirubin 0.3, Aspartate Amino Transf (AST/SGOT) 12L, Alanine Aminotransferase (ALT/SGPT) 6L, Alkaline Phosphatase 178H, Lactate Dehydrogenase 176, Pro-B-Type Natriuretic Peptide 1866H, Total Protein 5.9L, Albumin 1.6L, Globulin 4.3, Albumin/Globulin Ratio 0.4L, Vitamin B12 Level 862, Folate 5.0 Height (Feet): 5 Height (Inches): 5.00 Weight (Pounds): 110 General Appearance: lethargic EENT: TMs normal Neck: normal inspection Cardiovascular: regular rhythm Respiratory/Chest: normal breath sounds Abdomen: no organomegaly Pelvis: no cerv. motion tender Extremities: non-tender Edema: 1+ Leg (L), 1+ Leg (R) Edema: mild edema Neurologic: alert Skin: warm/dry Yong Jeong May 07, 2017 10:32
[2017-05-07 10:57] LABS: RETICULOCYTE COUNT 0.8 % (0.0-2.0)
[2017-05-07 11:48] LABS: OTHERS PATHOLOGIST COMMENT
--- NOTE | 2017-05-07 12:40 | Diagnostic Imaging Report ---
Indication: Dyspnea Comparison: None A single view chest radiograph was obtained. Findings: Pulmonary vascularity and interstitium appear somewhat prominent. Heart size is borderline enlarged. The bones are osteopenic. Impression: Possible mild CHF/interstitial edema. Please correlate clinically
[2017-05-07] MEDS ORDERED: Heparin 2000 units/Ns 1000ml 1,000 ML ONE (13:58)
[2017-05-07] MEDS ORDERED: Lidocaine 1% Plain 30 ml INJ ONE (13:59)
--- NOTE | 2017-05-07 15:22 | Pulmonology Progress Note ---
Assessment/Plan Problems: (1) Anemia (2) Leukocytosis (3) Diabetes mellitus (4) Endometrial cancer Assessment/Plan wbc lower s/p iv c filter social services assistant to find next of kin Subjective ROS Limited/Unobtainable: No Constitutional: Reports: no symptoms HEENT: Repors: no symptoms Respiratory: Reports: no symptoms Allergies: Coded Allergies: No Known Allergies (Unverified , 05/05/17) Objective Last 24 Hour Vital Signs Date Time Temp Pulse Resp B/P (MAP) Pulse Ox O2 Delivery O2 Flow Rate FiO2 05/07/17 14:05 11 142/85 100 Nasal Cannula 2.0 05/07/17 11:16 97.6 90 20 126/72 100 Nasal Cannula 2.0 05/07/17 08:03 97.3 92 20 122/65 99 Nasal Cannula 2.0 05/07/17 04:07 97.9 97 20 120/64 99 Nasal Cannula 05/07/17 04:00 96 05/07/17 00:00 97.9 68 20 125/67 98 Nasal Cannula 2.0 05/07/17 00:00 98 05/06/17 20:00 98.1 90 20 126/67 99 Nasal Cannula 2.0 05/06/17 20:00 96 05/06/17 16:17 97.2 96 18 125/63 95 Room Air 05/06/17 16:00 97 Intake and Output 05/07/17 05/08/17 19:00 07:00 Intake Total 200 ml Balance 200 ml Intake Oral 200 ml General Appearance: cachetic HEENT: normocephalic, atraumatic Respiratory/Chest: chest wall non-tender, lungs clear Cardiovascular: normal peripheral pulses, normal rate Abdomen: normal bowel sounds, soft, non tender Genitourinary: normal external genitalia Extremities: no clubbing Skin: no rash Microbiology Date/Time Source Procedure Growth Status 05/06/17 05:40 Wound Gram Stain - Final Resulted 05/06/17 05:40 Wound Culture - Preliminary Gram Negative Bacillus 1 Gram Negative Bacillus 2 Resulted 05/05/17 13:00 Urine,Clean Catch Urine Culture - Final Escherichia Coli Complete Laboratory Tests 05/06/17 18:15: White Blood Count 53.7*H, Red Blood Count 3.89L, Hemoglobin 9.9L, Hematocrit 31.5L, Mean Corpuscular Volume 81, Mean Corpuscular Hemoglobin 25.6L, Mean Corpuscular Hemoglobin Concent 31.6L, Red Cell Distribution Width 17.2H, Platelet Count 910H, Mean Platelet Volume 5.4L, Neutrophils (%) (Auto) , Lymphocytes (%) (Auto) , Monocytes (%) (Auto) , Eosinophils (%) (Auto) , Basophils (%) (Auto) , Differential Total Cells Counted 100, Neutrophils % ( Manual) 89H, Lymphocytes % (Manual) 8L, Monocytes % (Manual) 2, Eosinophils % ( Manual) 0, Basophils % (Manual) 0, Band Neutrophils 1, Platelet Estimate IncreasedH, Platelet Morphology Normal, Hypochromasia 1+, Anisocytosis 1+, Jak2 V617F Mutation Detection [Pending], JAK2 V617F Mutation Background [Pending], JAK2 V617F Reviewed By [Pending] 05/07/17 07:05: White Blood Count 47.3*H, Red Blood Count 3.81L, Hemoglobin 9.9L, Hematocrit 30.9L, Mean Corpuscular Volume 81, Mean Corpuscular Hemoglobin 25.9L, Mean Corpuscular Hemoglobin Concent 31.9L, Red Cell Distribution Width 17.5H, Platelet Count 861H, Mean Platelet Volume 5.4L, Neutrophils (%) (Auto) , Lymphocytes (%) (Auto) , Monocytes (%) (Auto) , Eosinophils (%) (Auto) , Basophils (%) (Auto) , Differential Total Cells Counted 100, Neutrophils % ( Manual) 87H, Lymphocytes % (Manual) 6L, Monocytes % (Manual) 4, Eosinophils % ( Manual) 0, Basophils % (Manual) 0, Band Neutrophils 3, Platelet Estimate IncreasedH, Platelet Morphology Normal, Hypochromasia 1+, Anisocytosis 1+, Microcytosis 1+, Erythrocyte Sedimentation Rate 56H, Reticulocyte Count 0.8, Prothrombin Time 11.7H, Prothromb Time International Ratio 1.1, Activated Partial Thromboplast Time 27, Sodium Level 137, Potassium Level 3.4L, Chloride Level 101, Carbon Dioxide Level 28, Anion Gap 8, Blood Urea Nitrogen 8, Creatinine 0.4L, Estimat Glomerular Filtration Rate > 60, Glucose Level 129H, Calcium Level 8.9, Iron Level 14L, Total Iron Binding Capacity 123L, Percent Iron Saturation 11L, Unsaturated Iron Binding 109L, Total Bilirubin 0.3, Aspartate Amino Transf (AST/SGOT) 12L, Alanine Aminotransferase (ALT/SGPT) 6L, Alkaline Phosphatase 178H, Lactate Dehydrogenase 176, Pro-B-Type Natriuretic Peptide 1866H, Total Protein 5.9L, Albumin 1.6L, Globulin 4.3, Albumin/Globulin Ratio 0.4L, Vitamin B12 Level 862, Folate 5.0 Current Medications Medications (Trade) Dose Ordered Sig/Maria Del Carmen Route PRN Reason Start Time Stop Time Status Last Admin Dose Admin Acetaminophen (Tylenol) 650 mg Q4H PRN ORAL fever 05/05/17 20:15 06/04/17 20:14 Al Hydroxide/Mg Hydroxide (Mylanta II) 30 ml Q6H PRN ORAL dyspepsia 05/05/17 20:15 06/04/17 20:14 Baclofen (Lioresal) 10 mg EVERY 12 HOURS ORAL 05/05/17 21:00 06/04/17 20:59 05/07/17 09:55 Dextrose (Dextrose 50%) STAT PRN IV Hypoglycemia 05/05/17 20:15 06/04/17 20:14 Heparin Sodium (Porcine) (Heparin 5000 units/ml) 5,000 units EVERY 12 HOURS SUBQ 05/05/17 21:00 06/04/17 20:59 Insulin Aspart (NovoLOG) BEFORE MEALS AND HS SUBQ 05/05/17 21:00 06/04/17 20:59 05/07/17 12:44 Lorazepam (Ativan 2mg/ml 1ml) 0.5 mg Q4H PRN IV For Anxiety 05/05/17 20:15 05/12/17 20:14 Morphine Sulfate (Morphine Sulfate) 1 mg Q4H PRN IVP For Severe Pain 05/05/17 20:15 05/12/17 20:14 05/07/17 15:03 Ondansetron HCl (Zofran) 4 mg Q6H PRN IVP Nausea & Vomiting 05/05/17 20:15 06/04/17 20:14 Oxycodone HCl (Roxicodone) 10 mg Q4H PRN ORAL For Moderate Pain 05/05/17 20:15 05/12/17 20:14 05/06/17 03:45 Piperacillin Sod/ Tazobactam Sod 3.375 gm/Sodium Chloride 110 ml @ 27.5 mls/hr Q8HR IVPB 05/06/17 18:00 05/13/17 17:59 05/07/17 15:02 Polyethylene Glycol (Miralax) 17 gm HSPRN PRN ORAL Constipation 05/05/17 20:15 06/04/17 20:14 Vancomycin HCl (Vanco rx to dose) 1 ea DAILY PRN MISC Per rx protocol 05/06/17 14:00 06/05/17 13:59 Vancomycin/Sodium Chloride 250 ml @ 166.667 mls/hr Q12HR@0500,1700 IVPB 05/07/17 05:00 05/12/17 04:59 05/07/17 04:39 Zolpidem Tartrate (Ambien) 5 mg HSPRN PRN ORAL Insomnia 05/05/17 20:15 05/12/17 20:14 RIN CALDWELL May 07, 2017 15:22
[2017-05-07] MEDS ORDERED: Vancomycin 750mg/NS 250ml IVPB SCH (16:00)
[2017-05-07] MEDS ORDERED: Tubing IV Secondary IV ONE (16:35)
--- NOTE | 2017-05-07 20:12 | Infectious Diseases Prog Note ---
Assessment/Plan Assessment/Plan ASSESSMENT: 62 y/o female with: // Possible E.coli UTI vs colonization - no sig pyuria or bacteruria // Stage IV sacral decubitus ulcer POA, not grossly infected - surveillance WCx GNR x2 ( C&S pending ) // Leukocytosis, severe - improved, afebrile r/o infection vs leukemoid vs myeloproliferative d/o - heme following, Jak2 pending ( CA, DVT contributing ) - no localizing s/sx infection // Severe symptomatic microcytic anemia SP PRBCs - denies blood loss // Acute and chronic RLE DVT - SP IVC filter 05/07 // Endometrial CA - no treatment to date // Thrombocytosis // DM2 // Physical deconditioning // NKDA // Full Code PLAN: - continue empiric IV vancomycin, zosyn d# 2 pending cultures ( 05/06 SP amikacin d# 1 ) - consider BMBx - f/u cultures - f/u Jak2 - monitor CBC, temperatures - monitor BMP - transfuse as needed - wound care - PT/OT Subjective Allergies: Coded Allergies: No Known Allergies (Unverified , 05/05/17) Subjective remains afebrile leukocytosis improved cultures noted SP IVC filter Objective Vital Signs Last 24 Hour Vital Signs Date Time Temp Pulse Resp B/P (MAP) Pulse Ox O2 Delivery O2 Flow Rate FiO2 05/07/17 15:50 96.8 89 22 143/81 100 Nasal Cannula 4.0 05/07/17 14:05 11 142/85 100 Nasal Cannula 2.0 05/07/17 11:16 97.6 90 20 126/72 100 Nasal Cannula 2.0 05/07/17 08:03 97.3 92 20 122/65 99 Nasal Cannula 2.0 05/07/17 04:07 97.9 97 20 120/64 99 Nasal Cannula 05/07/17 04:00 96 05/07/17 00:00 97.9 68 20 125/67 98 Nasal Cannula 2.0 05/07/17 00:00 98 Height (Feet): 5 Height (Inches): 5.00 Weight (Pounds): 110 General Appearance: no acute distress Respiratory/Chest: no respiratory distress Cardiovascular: normal rate, regular rhythm Abdomen: normal bowel sounds, soft, non tender, non distended Microbiology Date/Time Source Procedure Growth Status 05/06/17 05:40 Wound Gram Stain - Final Resulted 05/06/17 05:40 Wound Culture - Preliminary Gram Negative Bacillus 1 Gram Negative Bacillus 2 Resulted 05/05/17 13:00 Urine,Clean Catch Urine Culture - Final Escherichia Coli Complete Laboratory Tests Test 05/07/17 07:05 White Blood Count 47.3 K/UL (4.8-10.8) *H Red Blood Count 3.81 M/UL (4.20-5.40) L Hemoglobin 9.9 G/DL (12.0-16.0) L Hematocrit 30.9 % (37.0-47.0) L Mean Corpuscular Volume 81 FL (80-99) Mean Corpuscular Hemoglobin 25.9 PG (27.0-31.0) L Mean Corpuscular Hemoglobin Concent 31.9 G/DL (32.0-36.0) L Red Cell Distribution Width 17.5 % (11.6-14.8) H Platelet Count 861 K/UL (150-450) H Mean Platelet Volume 5.4 FL (6.5-10.1) L Neutrophils (%) (Auto) % (45.0-75.0) Lymphocytes (%) (Auto) % (20.0-45.0) Monocytes (%) (Auto) % (1.0-10.0) Eosinophils (%) (Auto) % (0.0-3.0) Basophils (%) (Auto) % (0.0-2.0) Differential Total Cells Counted 100 Neutrophils % (Manual) 87 % (45-75) H Lymphocytes % (Manual) 6 % (20-45) L Monocytes % (Manual) 4 % (1-10) Eosinophils % (Manual) 0 % (0-3) Basophils % (Manual) 0 % (0-2) Band Neutrophils 3 % (0-8) Platelet Estimate Increased H Platelet Morphology Normal Hypochromasia 1+ Anisocytosis 1+ Microcytosis 1+ Erythrocyte Sedimentation Rate 56 MM/HR (0-30) H Reticulocyte Count 0.8 % (0.0-2.0) Prothrombin Time 11.7 SEC (9.30-11.50) H Prothromb Time International Ratio 1.1 (0.9-1.1) Activated Partial Thromboplast Time 27 SEC (23-33) Sodium Level 137 MMOL/L (136-145) Potassium Level 3.4 MMOL/L (3.5-5.1) L Chloride Level 101 MMOL/L (98-107) Carbon Dioxide Level 28 MMOL/L (21-32) Anion Gap 8 mmol/L (5-15) Blood Urea Nitrogen 8 mg/dL (7-18) Creatinine 0.4 MG/DL (0.55-1.30) L Estimat Glomerular Filtration Rate > 60 mL/min (>60) Glucose Level 129 MG/DL (74-106) H Calcium Level 8.9 MG/DL (8.5-10.1) Iron Level 14 ug/dL (50-175) L Total Iron Binding Capacity 123 ug/dL (250-450) L Percent Iron Saturation 11 % (15-50) L Unsaturated Iron Binding 109 ug/dL (112-346) L Total Bilirubin 0.3 MG/DL (0.2-1.0) Aspartate Amino Transf (AST/SGOT) 12 U/L (15-37) L Alanine Aminotransferase (ALT/SGPT) 6 U/L (12-78) L Alkaline Phosphatase 178 U/L (46-116) H Lactate Dehydrogenase 176 U/L (81-234) Pro-B-Type Natriuretic Peptide 1866 pg/mL (0-125) H Total Protein 5.9 G/DL (6.4-8.2) L Albumin 1.6 G/DL (3.4-5.0) L Globulin 4.3 g/dL Albumin/Globulin Ratio 0.4 (1.0-2.7) L Vitamin B12 Level 862 PG/ML (193-986) Folate 5.0 NG/ML (3.1-17.5) Current Medications Medications (Trade) Dose Ordered Sig/Maria Del Carmen Route PRN Reason Start Time Stop Time Status Last Admin Dose Admin Acetaminophen (Tylenol) 650 mg Q4H PRN ORAL fever 05/05/17 20:15 06/04/17 20:14 05/07/17 16:36 Al Hydroxide/Mg Hydroxide (Mylanta II) 30 ml Q6H PRN ORAL dyspepsia 05/05/17 20:15 06/04/17 20:14 Baclofen (Lioresal) 10 mg EVERY 12 HOURS ORAL 05/05/17 21:00 06/04/17 20:59 05/07/17 09:55 Dextrose (Dextrose 50%) STAT PRN IV Hypoglycemia 05/05/17 20:15 06/04/17 20:14 Heparin Sodium (Porcine) (Heparin 5000 units/ml) 5,000 units EVERY 12 HOURS SUBQ 05/05/17 21:00 06/04/17 20:59 Insulin Aspart (NovoLOG) BEFORE MEALS AND HS SUBQ 05/05/17 21:00 06/04/17 20:59 05/07/17 16:41 Lorazepam (Ativan 2mg/ml 1ml) 0.5 mg Q4H PRN IV For Anxiety 05/05/17 20:15 05/12/17 20:14 Morphine Sulfate (Morphine Sulfate) 1 mg Q4H PRN IVP For Severe Pain 05/05/17 20:15 05/12/17 20:14 05/07/17 19:57 Ondansetron HCl (Zofran) 4 mg Q6H PRN IVP Nausea & Vomiting 05/05/17 20:15 06/04/17 20:14 Oxycodone HCl (Roxicodone) 10 mg Q4H PRN ORAL For Moderate Pain 05/05/17 20:15 05/12/17 20:14 05/06/17 03:45 Piperacillin Sod/ Tazobactam Sod 3.375 gm/Sodium Chloride 110 ml @ 27.5 mls/hr Q8HR IVPB 05/06/17 18:00 05/13/17 17:59 05/07/17 15:02 Polyethylene Glycol (Miralax) 17 gm HSPRN PRN ORAL Constipation 05/05/17 20:15 06/04/17 20:14 Vancomycin HCl (Vanco rx to dose) 1 ea DAILY PRN MISC Per rx protocol 05/06/17 14:00 06/05/17 13:59 Vancomycin/Sodium Chloride 250 ml @ 166.667 mls/hr Q12HR@0500,1700 IVPB 05/07/17 05:00 05/12/17 04:59 05/07/17 04:39 Zolpidem Tartrate (Ambien) 5 mg HSPRN PRN ORAL Insomnia 05/05/17 20:15 05/12/17 20:14 ANA VALDEZ May 07, 2017 20:12
[2017-05-08] VITALS (8 sets, daily range): BP systolic 106–132; BP diastolic 49–73
[2017-05-08] MEDS: Morphine Sulfate 4mg/ml Inj IVP PRN ×3 (01:47→11:23)
[2017-05-08] MEDS ORDERED: Mylanta II UD 30ml ORAL PRN (02:15)
[2017-05-08] MEDS ORDERED: Miralax 17gm pkt ORAL PRN ×2 (02:15→20:15)
[2017-05-08] MEDS ORDERED: LORazepam Inj 2mg/ml 1ml IV PRN (04:15)
[2017-05-08] MEDS ORDERED: Vancomycin 750mg/NS 250ml 250 ML IVPB SCH (05:00)
[2017-05-08] MEDS: Vancomycin 1gm/D5W 275ml IVPB SCH ×6 (05:15→17:48)
[2017-05-08] MEDS: Piperacillin/Tazobactam 3.375 GM in NS 110 ML IVPB SCH ×2 (06:00→14:50)
[2017-05-08] MEDS ORDERED: Vancomycin 1gm inj IVPB ONE (06:11)
[2017-05-08] MEDS: NovoLOG Insulin Flexpen SUBQ SCH ×4 (07:02→20:46)
--- NOTE | 2017-05-08 08:27 | Consultation ---
History of Present Illness General Date patient seen: May 08, 2017 Time patient seen: 08:22 Chief Complaint: Abnormal Labs Referring physician: Riana Reason for Consultation: Sacrococcyx ulcer Present Illness HPI asked to evaluate this patient with a sacrococcyx ulcer. She was admitted to [facility] [place] with very elevated WBC and low Hb of 6.9. She was admitted with the pressure ulcer. She is bedbound but unclear as to why. She also has a DVT. Allergies: Coded Allergies: No Known Allergies (Unverified , 05/05/17) Medication History Scheduled Apixaban (Eliquis), 5 MG PO BID, (Reported) Baclofen* (Baclofen*), 10 MG ORAL EVERY 12 HOURS, (Reported) Ferrous Sulfate* (Ferrous Sulfate*), 325 MG ORAL TWICE A DAY, (Reported) Insulin Lispro (Humalog Kwikpen), 6 UNITS SQ BEFORE MEALS AND HS, (Reported) Multivitamin (Multiple Vitamins), 1 EACH PO DAILY, (Reported) Scheduled PRN Bisacodyl* (Dulcolax*), 5 MG ORAL DAILY PRN for Constipation, (Reported) Dextrose (Glucose Bits), 1 GM PO NEEDED PRN for LOW BLOOD SUGAR, (Reported) Dextrose 50 % in Water (Dextrose 50%-Water Syringe), 50 ML IV NEEDED PRN for Hypoglycemia, (Reported) Glucagon,Human Recombinant (Glucagon Emergency Kit), 1 MG IJ NEEDED PRN for LOW BLOOD SUGAR, (Reported) Hydrocortisone Hc 2.5% Cream (Anusol-Hc 2.5% Cream), 30 GM RC EVERY 6 HOURS PRN for Hemorroidal Pain, (Reported) Magnesium Hydroxide* (Milk Of Magnesia*), 15 ML ORAL DAILY PRN for Constipation, (Reported) Ondansetron* (Zofran*), 4 MG ORAL Q6H PRN for Nausea & Vomiting, (Reported) Oxycodone Hcl* (Oxycodone Hcl*), 10 MG ORAL Q4H PRN for For Pain, (Reported) Oxycodone/Acetaminophen 5-325* (Percocet 5-325 Mg Tablet*), 2 TAB ORAL Q4H PRN for For Pain, (Reported) Sennosides (Senokot), 2 TAB PO EVERY 24 HOURS PRN for Constipation, (Reported) Tramadol Hcl* (Ultram*), 50 MG ORAL Q6H PRN for For Pain, (Reported) [Morphine], 2 MG ORAL EVERY 4 HOURS PRN for For Pain, (Reported) Patient History History Provided By: Patient, Medical Record Healthcare decision maker Krystal Resuscitation status Full Code Advanced Directive on File No Review of Systems Constitutional: Reports: no symptoms Eye: Reports: no symptoms ENT: Reports: no symptoms Respiratory: Reports: no symptoms Cardiovascular: Reports: no symptoms Skin: Reports: see HPI Psychiatric: Reports: depressed feelings Physical Exam General Appearance: alert Lines, tubes and drains: peripheral Respiratory/Chest: no respiratory distress Abdomen: non tender, soft Skin Exam: other - Strage 4 sacrococcyx pressure ulcer with areas of hypergranulation. No slough or necrotic tissue. Minimal undermining at 12 oclock. Periskin is in good condition with no erythema or warmth. Last 24 Hour Vital Signs Date Time Temp Pulse Resp B/P (MAP) Pulse Ox O2 Delivery O2 Flow Rate FiO2 05/08/17 07:34 96.6 05/08/17 03:53 96.6 96 20 129/69 99 Room Air 05/08/17 00:10 98.2 91 19 125/67 97 Nasal Cannula 3.0 05/08/17 00:00 97.0 87 20 126/73 100 Nasal Cannula 2.0 05/07/17 20:00 97.2 87 20 116/59 100 Nasal Cannula 2.0 05/07/17 16:00 95 05/07/17 15:50 96.8 89 22 143/81 100 Nasal Cannula 4.0 05/07/17 14:05 11 142/85 100 Nasal Cannula 2.0 05/07/17 12:00 86 05/07/17 11:16 97.6 90 20 126/72 100 Nasal Cannula 2.0 Laboratory Tests Test 05/08/17 03:20 Vancomycin Level Trough 11.0 ug/mL (5.0-12.0) Height (Feet): 5 Height (Inches): 5.00 Weight (Pounds): 110 Medications Current Medications Medications (Trade) Dose Ordered Sig/Maria Del Carmen Route PRN Reason Start Time Stop Time Status Last Admin Dose Admin Acetaminophen (Tylenol) 650 mg Q4H PRN ORAL fever 05/08/17 04:15 06/04/17 20:14 Al Hydroxide/Mg Hydroxide (Mylanta II) 30 ml Q6H PRN ORAL dyspepsia 05/08/17 02:15 06/04/17 20:14 Baclofen (Lioresal) 10 mg EVERY 12 HOURS ORAL 05/08/17 09:00 06/04/17 20:59 Dextrose (Dextrose 50%) STAT PRN IV Hypoglycemia 05/08/17 20:15 06/04/17 20:14 Heparin Sodium (Porcine) (Heparin 5000 units/ml) 5,000 units EVERY 12 HOURS SUBQ 05/08/17 09:00 06/04/17 20:59 Insulin Aspart (NovoLOG) BEFORE MEALS AND HS SUBQ 05/08/17 06:30 06/04/17 20:59 05/08/17 07:02 Lorazepam (Ativan 2mg/ml 1ml) 0.5 mg Q4H PRN IV For Anxiety 05/08/17 04:15 05/12/17 20:14 Morphine Sulfate (Morphine Sulfate) 1 mg Q4H PRN IVP For Severe Pain 05/08/17 04:15 05/12/17 20:14 05/08/17 06:18 Ondansetron HCl (Zofran) 4 mg Q6H PRN IVP Nausea & Vomiting 05/08/17 02:15 06/04/17 20:14 Oxycodone HCl (Roxicodone) 10 mg Q4H PRN ORAL For Moderate Pain 05/08/17 04:15 05/12/17 20:14 Piperacillin Sod/ Tazobactam Sod 3.375 gm/Sodium Chloride 110 ml @ 27.5 mls/hr Q8HR IVPB 05/08/17 06:00 05/13/17 17:59 Polyethylene Glycol (Miralax) 17 gm HSPRN PRN ORAL Constipation 05/08/17 02:15 06/07/17 02:14 Vancomycin HCl (Vanco rx to dose) 1 ea DAILY PRN MISC Per rx protocol 05/08/17 09:00 06/05/17 13:59 Vancomycin HCl 1 gm/Dextrose 275 ml @ 183.708 mls/hr Q12H IVPB 05/08/17 05:15 05/13/17 05:14 Zolpidem Tartrate (Ambien) 5 mg HSPRN PRN ORAL Insomnia 05/08/17 20:15 05/12/17 20:14 Assessment/Plan Status: stable Assessment/Plan Patient with stage 4 sacrococcyx pressure ulcer. This is not the cause of her leukocytosis. She has very low albumin level. Will check prealbumin level. She does not need urgent surgical intervention. She should have a nutritional assessment as well as off loading and a pressure release mattress. ANDREW AGUILAR May 08, 2017 08:27
[2017-05-08] MEDS: Heparin 5000 units/ml inj SUBQ SCH ×2 (08:59→20:54)
--- NOTE | 2017-05-08 09:15 | Pulmonology Progress Note ---
Assessment/Plan Assessment/Plan ASSESSMENT possible sepsis acute symptomatic anemia requiring blood transfusion anemia of malignancy anemia of chronic disease severe leukocytosis - 2 to infection vs myeloproliferative disorder vs leukemoid reaction ( Ca an DVT likely contributing as well) endometrium Ca metastatic disease DM acute DVT RLE thrombocytosis sacral decub st 4 POA L buttock and R trochanter DTI POA severe protein calorie malnutrition functional quadriplegia PLAN OF CARE MS floor HH remain at baseline, no trend down anemia w/up c/w anemia of chronic disease monitor counts and transfuse if Hgb below 7.5 leukocytosis with trend down, still significant, ID follows abx urine cx +Ecoli infection-vs colonization, no significant pyuria or bacteriuria as per ID notes significant leukocytosis possibly due to infection vs myeloproliferative disorder vs leukemoid reaction heme follows Arvind 2 pending PLT elevated wound care as per wound nurse recommendations plastic surgery eval appreciated per surgeon patient does not need urgent surgical intervention plastic surgeon doubt that sacral decub is a a source of leucocytosis recommended optimize nutritional status dietary eval nutritional supplements added as per dietary recommendations pain management bowel regimen venous Duplex + acute RLE DVT per heme recommended supportive care , no IVC filter continue Heparin for DVT prophylaxis DNR DNI status case discussed and evaluated by supervising physician Subjective Allergies: Coded Allergies: No Known Allergies (Unverified , 05/05/17) Subjective no signs of distress afebrile, no labs today still significant leukocytosis yesterday Objective Last 24 Hour Vital Signs Date Time Temp Pulse Resp B/P (MAP) Pulse Ox O2 Delivery O2 Flow Rate FiO2 05/08/17 08:00 98.1 98 19 111/49 100 Nasal Cannula 3.0 05/08/17 07:34 96.6 05/08/17 03:53 96.6 96 20 129/69 99 Room Air 05/08/17 00:10 98.2 91 19 125/67 97 Nasal Cannula 3.0 05/08/17 00:00 97.0 87 20 126/73 100 Nasal Cannula 2.0 05/07/17 20:00 97.2 87 20 116/59 100 Nasal Cannula 2.0 05/07/17 16:00 95 05/07/17 15:50 96.8 89 22 143/81 100 Nasal Cannula 4.0 05/07/17 14:05 11 142/85 100 Nasal Cannula 2.0 05/07/17 12:00 86 05/07/17 11:16 97.6 90 20 126/72 100 Nasal Cannula 2.0 General Appearance: no acute distress, cachetic, other - awake, alert, bedridden chronically ill looking female HEENT: normocephalic, atraumatic, anicteric, mucous membranes moist Respiratory/Chest: lungs clear, no respiratory distress Cardiovascular: normal rate, regular rhythm, no JVD Abdomen: normal bowel sounds, soft, non tender Extremities: no edema, pedal pulses normal Skin: other - sacral decub st 4, L buttock and R trochanter DTI -all POA Neurologic/Psychiatric: abnormal gait, alert, responsive Musculoskeletal: atrophy - BLE Microbiology Date/Time Source Procedure Growth Status 05/06/17 05:40 Wound Gram Stain - Final Resulted 05/06/17 05:40 Wound Culture - Preliminary Gram Negative Bacillus 1 Gram Negative Bacillus 2 Resulted 05/05/17 13:00 Urine,Clean Catch Urine Culture - Final Escherichia Coli Complete 05/06/17 05:40 Rectum VRE Culture - Final Enterococcus Faecium - Vre Complete Laboratory Tests 05/08/17 03:20: Vancomycin Level Trough 11.0 Current Medications Medications (Trade) Dose Ordered Sig/Maria Del Carmen Route PRN Reason Start Time Stop Time Status Last Admin Dose Admin Acetaminophen (Tylenol) 650 mg Q4H PRN ORAL fever 05/08/17 04:15 06/04/17 20:14 Al Hydroxide/Mg Hydroxide (Mylanta II) 30 ml Q6H PRN ORAL dyspepsia 05/08/17 02:15 06/04/17 20:14 Baclofen (Lioresal) 10 mg EVERY 12 HOURS ORAL 05/08/17 09:00 06/04/17 20:59 Dextrose (Dextrose 50%) STAT PRN IV Hypoglycemia 05/08/17 20:15 06/04/17 20:14 Heparin Sodium (Porcine) (Heparin 5000 units/ml) 5,000 units EVERY 12 HOURS SUBQ 05/08/17 09:00 06/04/17 20:59 Insulin Aspart (NovoLOG) BEFORE MEALS AND HS SUBQ 05/08/17 06:30 06/04/17 20:59 05/08/17 07:02 Lorazepam (Ativan 2mg/ml 1ml) 0.5 mg Q4H PRN IV For Anxiety 05/08/17 04:15 05/12/17 20:14 Morphine Sulfate (Morphine Sulfate) 1 mg Q4H PRN IVP For Severe Pain 05/08/17 04:15 05/12/17 20:14 05/08/17 06:18 Ondansetron HCl (Zofran) 4 mg Q6H PRN IVP Nausea & Vomiting 05/08/17 02:15 06/04/17 20:14 Oxycodone HCl (Roxicodone) 10 mg Q4H PRN ORAL For Moderate Pain 05/08/17 04:15 05/12/17 20:14 Piperacillin Sod/ Tazobactam Sod 3.375 gm/Sodium Chloride 110 ml @ 27.5 mls/hr Q8HR IVPB 05/08/17 06:00 05/13/17 17:59 Polyethylene Glycol (Miralax) 17 gm HSPRN PRN ORAL Constipation 05/08/17 02:15 06/07/17 02:14 Vancomycin HCl (Vanco rx to dose) 1 ea DAILY PRN MISC Per rx protocol 05/08/17 09:00 06/05/17 13:59 Vancomycin HCl 1 gm/Dextrose 275 ml @ 183.708 mls/hr Q12H IVPB 05/08/17 05:15 05/13/17 05:14 Zolpidem Tartrate (Ambien) 5 mg HSPRN PRN ORAL Insomnia 05/08/17 20:15 05/12/17 20:14 Lisa Lal NP (Vanchtein) May 08, 2017 09:15
[2017-05-08 09:49] LABS: OTHERS PATHOLOGIST COMMENT
--- NOTE | 2017-05-08 12:22 | Infectious Diseases Prog Note ---
Assessment/Plan Assessment/Plan ASSESSMENT: 62 y/o female with: // Ro UTI // Ro Bacteremia // Stage IV sacral decubitus ulcer POA, not grossly infected - surveillance WCx : EColi, P Mirabilis , Diphtheroids ( Colonizer ) no intervention as per Plastic Sx // Leukocytosis, severe - improved, afebrile r/o infection vs leukemoid vs myeloproliferative d/o - heme following, Jak2 pending ( CA, DVT contributing ) - no localizing s/sx infection // Severe symptomatic microcytic anemia SP PRBCs - denies blood loss // Acute and chronic RLE DVT - SP IVC filter 05/07 // Endometrial CA - no treatment to date // Thrombocytosis // DM2 // Physical deconditioning // NKDA // Full Code PLAN: - continue empiric IV vancomycin, zosyn d# 3 ( 05/06 SP amikacin d# 1 ) - consider BMBx - f/u cultures ( wnd , Bl, Ur ) - f/u Jak2 - monitor CBC, temperatures - monitor BMP - transfuse as needed - wound care - PT/OT - C Diff Subjective Allergies: Coded Allergies: No Known Allergies (Unverified , 05/05/17) Subjective no new complain Objective Vital Signs Last 24 Hour Vital Signs Date Time Temp Pulse Resp B/P (MAP) Pulse Ox O2 Delivery O2 Flow Rate FiO2 05/08/17 08:00 98.1 98 19 111/49 100 Nasal Cannula 3.0 05/08/17 07:34 96.6 05/08/17 03:53 96.6 96 20 129/69 99 Room Air 05/08/17 00:10 98.2 91 19 125/67 97 Nasal Cannula 3.0 05/08/17 00:00 97.0 87 20 126/73 100 Nasal Cannula 2.0 05/07/17 20:00 97.2 87 20 116/59 100 Nasal Cannula 2.0 05/07/17 16:00 95 05/07/17 15:50 96.8 89 22 143/81 100 Nasal Cannula 4.0 05/07/17 14:05 11 142/85 100 Nasal Cannula 2.0 Height (Feet): 5 Height (Inches): 5.00 Weight (Pounds): 110 HEENT: anicteric Respiratory/Chest: normal breath sounds Cardiovascular: regular rhythm Abdomen: soft, non tender Microbiology Date/Time Source Procedure Growth Status 05/06/17 05:40 Wound Gram Stain - Final Resulted 05/06/17 05:40 Wound Culture - Preliminary Proteus Mirabilis Escherichia Coli Diphtheroids Resulted 05/06/17 05:40 Nasal Nares MRSA Culture - Final NO METHICILLIN RESISTANT STAPH AUREUS... Complete 05/05/17 13:00 Urine,Clean Catch Urine Culture - Final Escherichia Coli Complete 05/06/17 05:40 Rectum VRE Culture - Final Enterococcus Faecium - Vre Complete Laboratory Tests Test 05/08/17 03:20 05/08/17 06:00 Vancomycin Level Trough 11.0 ug/mL (5.0-12.0) Prealbumin Pending Current Medications Medications (Trade) Dose Ordered Sig/Maria Del Carmen Route PRN Reason Start Time Stop Time Status Last Admin Dose Admin Acetaminophen (Tylenol) 650 mg Q4H PRN ORAL fever 05/08/17 04:15 06/04/17 20:14 Al Hydroxide/Mg Hydroxide (Mylanta II) 30 ml Q6H PRN ORAL dyspepsia 05/08/17 02:15 06/04/17 20:14 Baclofen (Lioresal) 10 mg EVERY 12 HOURS ORAL 05/08/17 09:00 06/04/17 20:59 05/08/17 08:41 Dextrose (Dextrose 50%) STAT PRN IV Hypoglycemia 05/08/17 20:15 06/04/17 20:14 Heparin Sodium (Porcine) (Heparin 5000 units/ml) 5,000 units EVERY 12 HOURS SUBQ 05/08/17 09:00 06/04/17 20:59 Insulin Aspart (NovoLOG) BEFORE MEALS AND HS SUBQ 05/08/17 06:30 06/04/17 20:59 05/08/17 07:02 Lorazepam (Ativan 2mg/ml 1ml) 0.5 mg Q4H PRN IV For Anxiety 05/08/17 04:15 05/12/17 20:14 Morphine Sulfate (Morphine Sulfate) 1 mg Q4H PRN IVP For Severe Pain 05/08/17 04:15 05/12/17 20:14 05/08/17 11:23 Ondansetron HCl (Zofran) 4 mg Q6H PRN IVP Nausea & Vomiting 05/08/17 02:15 06/04/17 20:14 Oxycodone HCl (Roxicodone) 10 mg Q4H PRN ORAL For Moderate Pain 05/08/17 04:15 05/12/17 20:14 Piperacillin Sod/ Tazobactam Sod 3.375 gm/Sodium Chloride 110 ml @ 27.5 mls/hr Q8HR IVPB 05/08/17 06:00 05/13/17 17:59 Polyethylene Glycol (Miralax) 17 gm HSPRN PRN ORAL Constipation 05/08/17 02:15 06/07/17 02:14 Vancomycin HCl (Vanco rx to dose) 1 ea DAILY PRN MISC Per rx protocol 05/08/17 09:00 06/05/17 13:59 Vancomycin HCl 1 gm/Dextrose 275 ml @ 183.708 mls/hr Q12H IVPB 05/08/17 05:15 05/13/17 05:14 Zolpidem Tartrate (Ambien) 5 mg HSPRN PRN ORAL Insomnia 05/08/17 20:15 05/12/17 20:14 CHADWICK CLAY M.D. May 08, 2017 12:22
--- NOTE | 2017-05-08 15:21 | Diagnostic Imaging Report ---
Indication: Pelvic pain Technique: Transabdominal images only. Patient unable to tolerate endovaginal imaging Comparison: None Findings: Is limited due to lack of transvaginal imaging. Uterus measures 9.6 cm length by 5.9 cm AP. The endometrium is somewhat thickened, measuring 2.4 cm thick. It is heterogeneous, with some areas of fluid attenuation and echogenic debris Prominent vascularity is seen extending into the myometrium. The myometrium is grossly unremarkable. Neither ovary could be demonstrated. No gross adnexal mass. There is a small amount free fluid in the pelvis Impression: Markedly abnormal thickened heterogeneous endometrium. Possibilities include endometritis, neoplasm. Gynecological evaluation recommended. Further evaluation with MRI may be useful as clinically indicated Free pelvic fluid. Etiology indeterminate, but not physiologic in a postmenopausal female Nonvisualized ovaries
--- NOTE | 2017-05-08 17:26 | General Progress Note ---
Assessment/Plan Assessment/Plan ASSESSMENT AND RECOMMENDATIONS: #. Leukocytosis in the setting of thrombocytosis. Likely is related to infection --> continue antibiotics and monitor #. Anemia, secondary to chronic disease. ==> Anemia workup has been ordered and results at this time are pending. #. Thrombocytosis, rule out polycythemia vera. JAK2 is pending as well. ==> hold off on bone marrow biopsy, likely will self resolve #. Deep venous thrombosis of the right leg Recommend conservative care, do not place ivc filter given patient asymptomatic # Endometrial carcinoma. Will need outpatient w/u # Bedbound status. # Diabetes mellitus. # Recommend conservative care. Subjective ROS Limited/Unobtainable: Yes Allergies: Coded Allergies: No Known Allergies (Unverified , 05/05/17) Subjective wbc still elevated Objective Last 24 Hour Vital Signs Date Time Temp Pulse Resp B/P (MAP) Pulse Ox O2 Delivery O2 Flow Rate FiO2 05/08/17 16:00 97.5 99 19 132/69 99 Room Air 05/08/17 12:00 97.1 95 18 107/70 100 Nasal Cannula 3.0 05/08/17 08:00 98.1 98 19 111/49 100 Nasal Cannula 3.0 05/08/17 07:34 96.6 05/08/17 03:53 96.6 96 20 129/69 99 Room Air 05/08/17 00:10 98.2 91 19 125/67 97 Nasal Cannula 3.0 05/08/17 00:00 97.0 87 20 126/73 100 Nasal Cannula 2.0 05/07/17 20:00 97.2 87 20 116/59 100 Nasal Cannula 2.0 Laboratory Tests 05/08/17 03:20: Vancomycin Level Trough 11.0 05/08/17 06:00: Prealbumin [Pending] Height (Feet): 5 Height (Inches): 5.00 Weight (Pounds): 110 Yong Jeong May 08, 2017 17:26
[2017-05-08] MEDS ORDERED: Zolpidem 5mg tab ORAL PRN (20:15)
[2017-05-08] MEDS ORDERED: Zosyn 3.375gm q12h **Extended infusion IVPB SCH (21:00)
[2017-05-08] MEDS: Zosyn 3.375gm q8h **Extended infusion IVPB SCH (21:23)
[2017-05-08] MEDS: oxyCODONE 5mg IR tab ORAL PRN (22:59)
[2017-05-09 03:51] VITALS: BP 102/50
[2017-05-09] MEDS: Vancomycin 1gm/D5W 275ml IVPB SCH ×6 (05:00→21:02)
[2017-05-09] MEDS: oxyCODONE 5mg IR tab ORAL PRN (05:01)
[2017-05-09] MEDS: Zosyn 3.375gm q8h **Extended infusion IVPB SCH ×2 (06:31→15:16)
[2017-05-09] MEDS: NovoLOG Insulin Flexpen SUBQ SCH ×4 (06:35→21:05)
[2017-05-09 08:00] VITALS: BP 103/55
[2017-05-09 08:04] LABS: MEAN CORPUSCULAR HGB CONC 31.6 G/DL (32.0-36.0); MEAN CORPUSCULAR VOLUME 82 FL (80-99); MEAN PLATELET VOLUME 5.2 FL (6.5-10.1); PLATELET COUNT 927 K/UL (150-450); RED CELL DISTRIBUTION WIDTH 18.9 % (11.6-14.8)
[2017-05-09] MEDS: Heparin 5000 units/ml inj SUBQ SCH ×2 (08:13→21:00)
[2017-05-09 08:23] LABS: WHITE BLOOD COUNT 55.3 K/UL (4.8-10.8)
--- NOTE | 2017-05-09 08:27 | Pulmonology Progress Note ---
Assessment/Plan Assessment/Plan ASSESSMENT possible sepsis acute symptomatic anemia requiring blood transfusion anemia of malignancy anemia of chronic disease severe leukocytosis - 2 to infection vs myeloproliferative disorder vs leukemoid reaction ( Ca an DVT likely contributing as well) endometrium Ca metastatic disease DM acute DVT RLE thrombocytosis sacral decub st 4 POA L buttock and R trochanter DTI POA severe protein calorie malnutrition functional quadriplegia PLAN OF CARE [facility] floor HH remain at baseline, anemia w/up c/w anemia of chronic disease monitor counts and transfuse if Hgb below 7.5 leukocytosis with trend up , abx ID follows urine cx +Ecoli infection-vs colonization, no significant pyuria or bacteriuria as per ID notes significant leukocytosis possibly due to infection vs myeloproliferative disorder vs leukemoid reaction heme follows Arvind 2 pending PLT elevated replace K , check Mg today and K in am pelvic US noted c/w known hx of endometrium malignancy will get CT A/P in am wound care as per wound nurse recommendations plastic surgery eval appreciated per surgeon patient does not need urgent surgical intervention plastic surgeon doubt that sacral decub is a a source of leucocytosis recommended optimize nutritional status dietary eval nutritional supplements added as per dietary recommendations pain management bowel regimen venous Duplex + acute RLE DVT per heme recommended supportive care , no IVC filter since asymptomatic and given overall condition continue Heparin for DVT prophylaxis DNR DNI status case discussed and evaluated by supervising physician Subjective Allergies: Coded Allergies: No Known Allergies (Unverified , 05/05/17) Subjective no signs of distress afebrile, K-2.9 significant leukocytosis with trend up nursing noted vaginal spotting, HH stable, at baseline Objective Last 24 Hour Vital Signs Date Time Temp Pulse Resp B/P (MAP) Pulse Ox O2 Delivery O2 Flow Rate FiO2 05/09/17 03:51 97.6 97 19 102/50 98 Nasal Cannula 97 05/08/17 23:57 97.8 87 19 106/58 97 Room Air 05/08/17 20:13 97.5 104 19 129/73 99 Nasal Cannula 05/08/17 16:00 97.5 99 19 132/69 99 Room Air 05/08/17 12:00 97.1 95 18 107/70 100 Nasal Cannula 3.0 Objective General Appearance: no acute distress, cachetic, other - awake, alert, bedridden chronically ill looking female HEENT: normocephalic, atraumatic, anicteric, mucous membranes moist Respiratory/Chest: lungs clear, no respiratory distress Cardiovascular: normal rate, regular rhythm, no JVD Abdomen: normal bowel sounds, soft, non tender Extremities: no edema, pedal pulses normal Skin: other - sacral decub st 4, L buttock and R trochanter DTI -all POA Neurologic/Psychiatric: abnormal gait, alert, responsive Musculoskeletal: atrophy - BLE Microbiology Date/Time Source Procedure Growth Status 05/08/17 15:30 Urine,Clean Catch Urine Culture - Preliminary NO GROWTH Resulted Laboratory Tests 05/09/17 06:10: White Blood Count 55.3*H, Red Blood Count 3.90L, Hemoglobin 10.1L, Hematocrit 32.1L, Mean Corpuscular Volume 82, Mean Corpuscular Hemoglobin 26.0L, Mean Corpuscular Hemoglobin Concent 31.6L, Red Cell Distribution Width 18.9H, Platelet Count 927H, Mean Platelet Volume 5.2L, Neutrophils (%) (Auto) , Lymphocytes (%) (Auto) , Monocytes (%) (Auto) , Eosinophils (%) (Auto) , Basophils (%) (Auto) , Neutrophils % (Manual) [Pending], Lymphocytes % (Manual) [Pending], Platelet Estimate [Pending], Platelet Morphology [Pending], Sodium Level [Pending], Potassium Level [Pending], Chloride Level [Pending], Carbon Dioxide Level [Pending], Blood Urea Nitrogen [Pending], Creatinine [Pending], Estimat Glomerular Filtration Rate [Pending], Glucose Level [Pending], Calcium Level [Pending] Current Medications Medications (Trade) Dose Ordered Sig/Maria Del Carmen Route PRN Reason Start Time Stop Time Status Last Admin Dose Admin Acetaminophen (Tylenol) 650 mg Q4H PRN ORAL fever 05/08/17 04:15 06/04/17 20:14 05/08/17 18:51 Al Hydroxide/Mg Hydroxide (Mylanta II) 30 ml Q6H PRN ORAL dyspepsia 05/08/17 02:15 06/04/17 20:14 Baclofen (Lioresal) 10 mg EVERY 12 HOURS ORAL 05/08/17 09:00 06/04/17 20:59 05/09/17 08:09 Dextrose (Dextrose 50%) STAT PRN IV Hypoglycemia 05/08/17 20:15 06/04/17 20:14 Heparin Sodium (Porcine) (Heparin 5000 units/ml) 5,000 units EVERY 12 HOURS SUBQ 05/08/17 09:00 06/04/17 20:59 05/09/17 08:13 Insulin Aspart (NovoLOG) BEFORE MEALS AND HS SUBQ 05/08/17 06:30 06/04/17 20:59 05/09/17 06:35 Lorazepam (Ativan 2mg/ml 1ml) 0.5 mg Q4H PRN IV For Anxiety 05/08/17 04:15 05/12/17 20:14 Morphine Sulfate (Morphine Sulfate) 1 mg Q4H PRN IVP For Severe Pain 05/08/17 04:15 05/12/17 20:14 05/08/17 11:23 Ondansetron HCl (Zofran) 4 mg Q6H PRN IVP Nausea & Vomiting 05/08/17 02:15 06/04/17 20:14 Oxycodone HCl (Roxicodone) 10 mg Q4H PRN ORAL For Moderate Pain 05/08/17 04:15 05/12/17 20:14 05/09/17 05:01 Piperacillin/ Tazobactam/ Dextrose 50 ml @ 12.5 mls/hr EVERY 8 HOURS IVPB 05/08/17 22:00 05/13/17 17:59 05/09/17 06:31 Polyethylene Glycol (Miralax) 17 gm HSPRN PRN ORAL Constipation 05/08/17 02:15 06/07/17 02:14 Vancomycin HCl (Vanco rx to dose) 1 ea DAILY PRN MISC Per rx protocol 05/08/17 09:00 06/05/17 13:59 Vancomycin HCl 1 gm/Dextrose 275 ml @ 183.708 mls/hr Q12H IVPB 05/08/17 05:15 05/13/17 05:14 05/09/17 05:00 Zolpidem Tartrate (Ambien) 5 mg HSPRN PRN ORAL Insomnia 05/08/17 20:15 05/12/17 20:14 Lisa Lal NP (Vanchtein) May 09, 2017 08:27
[2017-05-09 08:38] LABS: ANION GAP 9 mmol/L (5-15); CARBON DIOXIDE 29 MMOL/L (21-32); CHLORIDE 101 MMOL/L (98-107); CREATININE 0.5 MG/DL (0.55-1.30); GLOMERULAR FILTRATION RATE > 60 mL/min (>60); POTASSIUM 2.9 MMOL/L (3.5-5.1); SODIUM 139 MMOL/L (136-145)
[2017-05-09] MEDS: Hydroxyurea 500mg cap ORAL SCH (09:00)
[2017-05-09] MEDS ORDERED: Tubing IV Secondary IV ONE (09:17)
[2017-05-09] MEDS ORDERED: NS 275ml ONE (09:17)
[2017-05-09 10:15] LABS: ANISOCYTOSIS 1+; BAND NEUTROPHILS % (MANUAL) 0 % (0-8); BASOPHILS % (MANUAL) 0 % (0-2); EOSINOPHILS % (MANUAL) 0 % (0-3); LYMPHOCYTES % (MANUAL) 2 % (20-45); NEUTROPHILS % (MANUAL) 93 % (45-75); PLATELET ESTIMATE INCREASED; PLATELET MORPHOLOGY NORMAL; TOTAL CELLS COUNTED 100
[2017-05-09] MEDS: KCl 10% 40mEq/30ml liquid NG SCH ×2 (10:43→15:16)
[2017-05-09] MEDS: Morphine Sulfate 4mg/ml Inj IVP PRN (12:17)
[2017-05-09 12:29] VITALS: BP 96/54
--- NOTE | 2017-05-09 13:00 | Infectious Diseases Prog Note ---
Assessment/Plan Assessment/Plan A; Leukemoid reaction DVT of R leg Unstageable sacral ulcer Anemia DM type 2 ? Uterine cancer, endometritis P; continue Vancomycin & Zosyn Subjective ROS Limited/Unobtainable: No Constitutional: Reports: anorexia Respiratory: Reports: shortness of breath Gastrointestinal/Abdominal: Reports: nausea, diarrhea, blood in stool Allergies: Coded Allergies: No Known Allergies (Unverified , 05/05/17) Objective Vital Signs Last 24 Hour Vital Signs Date Time Temp Pulse Resp B/P (MAP) Pulse Ox O2 Delivery O2 Flow Rate FiO2 05/09/17 12:29 98.0 99 20 96/54 100 Nasal Cannula 05/09/17 08:00 97.5 93 16 103/55 99 Room Air 93 05/09/17 03:51 97.6 97 19 102/50 98 Nasal Cannula 97 05/08/17 23:57 97.8 87 19 106/58 97 Room Air 05/08/17 20:13 97.5 104 19 129/73 99 Nasal Cannula 05/08/17 16:00 97.5 99 19 132/69 99 Room Air Height (Feet): 5 Height (Inches): 5.00 Weight (Pounds): 110 General Appearance: cachetic HEENT: mucous membranes moist Respiratory/Chest: lungs clear, other - O2 by cannula Cardiovascular: normal rate Abdomen: normal bowel sounds Extremities: other - R leg edema Neurologic/Psychiatric: alert, responsive Microbiology Date/Time Source Procedure Growth Status 05/08/17 15:30 Urine,Clean Catch Urine Culture - Preliminary NO GROWTH Resulted Laboratory Tests Test 05/09/17 06:10 05/09/17 12:45 White Blood Count 55.3 K/UL (4.8-10.8) *H Pending Red Blood Count 3.90 M/UL (4.20-5.40) L Pending Hemoglobin 10.1 G/DL (12.0-16.0) L Pending Hematocrit 32.1 % (37.0-47.0) L Pending Mean Corpuscular Volume 82 FL (80-99) Pending Mean Corpuscular Hemoglobin 26.0 PG (27.0-31.0) L Pending Mean Corpuscular Hemoglobin Concent 31.6 G/DL (32.0-36.0) L Pending Red Cell Distribution Width 18.9 % (11.6-14.8) H Pending Platelet Count 927 K/UL (150-450) H Pending Mean Platelet Volume 5.2 FL (6.5-10.1) L Pending Neutrophils (%) (Auto) % (45.0-75.0) Pending Lymphocytes (%) (Auto) % (20.0-45.0) Pending Monocytes (%) (Auto) % (1.0-10.0) Pending Eosinophils (%) (Auto) % (0.0-3.0) Pending Basophils (%) (Auto) % (0.0-2.0) Pending Differential Total Cells Counted 100 Neutrophils % (Manual) 93 % (45-75) H Lymphocytes % (Manual) 2 % (20-45) L Monocytes % (Manual) 5 % (1-10) Eosinophils % (Manual) 0 % (0-3) Basophils % (Manual) 0 % (0-2) Band Neutrophils 0 % (0-8) Platelet Estimate Increased H Platelet Morphology Normal Anisocytosis 1+ Sodium Level 139 MMOL/L (136-145) Potassium Level 2.9 MMOL/L (3.5-5.1) L Chloride Level 101 MMOL/L (98-107) Carbon Dioxide Level 29 MMOL/L (21-32) Anion Gap 9 mmol/L (5-15) Blood Urea Nitrogen 6 mg/dL (7-18) L Creatinine 0.5 MG/DL (0.55-1.30) L Estimat Glomerular Filtration Rate > 60 mL/min (>60) Glucose Level 105 MG/DL (74-106) Calcium Level 9.0 MG/DL (8.5-10.1) Magnesium Level 1.5 MG/DL (1.8-2.4) L Prothrombin Time Pending Prothromb Time International Ratio Pending Current Medications Medications (Trade) Dose Ordered Sig/Maria Del Carmen Route PRN Reason Start Time Stop Time Status Last Admin Dose Admin Acetaminophen (Tylenol) 650 mg Q4H PRN ORAL fever 05/08/17 04:15 06/04/17 20:14 05/08/17 18:51 Al Hydroxide/Mg Hydroxide (Mylanta II) 30 ml Q6H PRN ORAL dyspepsia 05/08/17 02:15 06/04/17 20:14 Baclofen (Lioresal) 10 mg EVERY 12 HOURS ORAL 10/20/17 09:00 06/04/17 20:59 05/09/17 08:09 Dextrose (Dextrose 50%) STAT PRN IV Hypoglycemia 05/08/17 20:15 06/04/17 20:14 Heparin Sodium (Porcine) (Heparin 5000 units/ml) 5,000 units EVERY 12 HOURS SUBQ 05/08/17 09:00 06/04/17 20:59 05/09/17 08:13 Hydroxyurea (Hydrea) 500 mg DAILY ORAL 05/09/17 09:00 05/14/17 08:59 05/09/17 09:00 Insulin Aspart (NovoLOG) BEFORE MEALS AND HS SUBQ 05/08/17 06:30 06/04/17 20:59 05/09/17 12:18 Lorazepam (Ativan 2mg/ml 1ml) 0.5 mg Q4H PRN IV For Anxiety 05/08/17 04:15 05/12/17 20:14 Morphine Sulfate (Morphine Sulfate) 1 mg Q4H PRN IVP For Severe Pain 05/08/17 04:15 05/12/17 20:14 05/09/17 12:17 Ondansetron HCl (Zofran) 4 mg Q6H PRN IVP Nausea & Vomiting 05/08/17 02:15 06/04/17 20:14 Oxycodone HCl (Roxicodone) 10 mg Q4H PRN ORAL For Moderate Pain 05/08/17 04:15 05/12/17 20:14 05/09/17 05:01 Piperacillin/ Tazobactam/ Dextrose 50 ml @ 12.5 mls/hr EVERY 8 HOURS IVPB 05/08/17 22:00 05/13/17 17:59 05/09/17 06:31 Polyethylene Glycol (Miralax) 17 gm HSPRN PRN ORAL Constipation 05/08/17 02:15 06/07/17 02:14 Potassium Chloride (KCl 10% 40mEq Oral solution) 40 meq Q4H NG 05/09/17 10:30 05/09/17 14:31 05/09/17 10:43 Vancomycin HCl (Vanco rx to dose) 1 ea DAILY PRN MISC Per rx protocol 05/08/17 09:00 06/05/17 13:59 Vancomycin HCl 1 gm/Dextrose 275 ml @ 183.708 mls/hr Q12H IVPB 05/08/17 05:15 05/13/17 05:14 05/09/17 05:00 Zolpidem Tartrate (Ambien) 5 mg HSPRN PRN ORAL Insomnia 05/08/17 20:15 05/12/17 20:14 CAROLE GARCIA May 09, 2017 13:00
[2017-05-09 13:04] LABS: MEAN CORPUSCULAR HEMOGLOBIN 24.7 PG (27.0-31.0); MEAN CORPUSCULAR HGB CONC 30.1 G/DL (32.0-36.0); MEAN CORPUSCULAR VOLUME 82 FL (80-99); MEAN PLATELET VOLUME 5.3 FL (6.5-10.1); PLATELET COUNT 1033 K/UL (150-450); RED BLOOD COUNT 4.04 M/UL (4.20-5.40); RED CELL DISTRIBUTION WIDTH 18.8 % (11.6-14.8)
[2017-05-09 13:12] LABS: INR 1.2 (0.9-1.1); PROTHROMBIN TIME 12.1 SEC (9.30-11.50)
[2017-05-09 13:14] LABS: WHITE BLOOD COUNT 65.4 K/UL (4.8-10.8)
[2017-05-09 13:37] LABS: ANISOCYTOSIS 1+; BAND NEUTROPHILS % (MANUAL) 3 % (0-8); BASOPHILS % (MANUAL) 0 % (0-2); EOSINOPHILS % (MANUAL) 0 % (0-3); LYMPHOCYTES % (MANUAL) 5 % (20-45); NEUTROPHILS % (MANUAL) 89 % (45-75); PLATELET ESTIMATE INCREASED; PLATELET MORPHOLOGY NORMAL; TOTAL CELLS COUNTED 100
[2017-05-09 16:00] VITALS: BP 111/57
[2017-05-09 20:00] VITALS: BP 99/61
[2017-05-10] VITALS: BP 97/45
[2017-05-10] MEDS: Zosyn 3.375gm q8h **Extended infusion IVPB SCH ×4 (00:08→21:47)
[2017-05-10 04:00] VITALS: BP 112/62
[2017-05-10] MEDS: NovoLOG Insulin Flexpen SUBQ SCH ×4 (06:19→21:05)
[2017-05-10] MEDS: Morphine Sulfate 4mg/ml Inj IVP PRN ×2 (07:11→18:58)
[2017-05-10 07:54] LABS: MEAN CORPUSCULAR HGB CONC 31.5 G/DL (32.0-36.0); MEAN CORPUSCULAR VOLUME 83 FL (80-99); MEAN PLATELET VOLUME 5.1 FL (6.5-10.1); PLATELET COUNT 982 K/UL (150-450); RED BLOOD COUNT 3.73 M/UL (4.20-5.40); RED CELL DISTRIBUTION WIDTH 19.4 % (11.6-14.8)
[2017-05-10] MEDS: Hydroxyurea 500mg cap ORAL SCH ×4 (08:06→17:36)
[2017-05-10 08:11] VITALS: BP 110/64
[2017-05-10 08:23] LABS: ANION GAP 13 mmol/L (5-15); CARBON DIOXIDE 25 MMOL/L (21-32); CHLORIDE 103 MMOL/L (98-107); CREATININE 0.6 MG/DL (0.55-1.30); GLOMERULAR FILTRATION RATE > 60 mL/min (>60); POTASSIUM 3.8 MMOL/L (3.5-5.1); SODIUM 141 MMOL/L (136-145)
--- NOTE | 2017-05-10 08:52 | Pulmonology Progress Note ---
Assessment/Plan Assessment/Plan ASSESSMENT acute symptomatic anemia requiring blood transfusion anemia of malignancy anemia of chronic disease severe leukocytosis - 2 to infection vs myeloproliferative disorder vs leukemoid reaction ( Ca an DVT likely contributing as well) endometrium Ca DM acute DVT RLE thrombocytosis sacral decub st 4 POA L buttock and R trochanter DTI POA severe protein calorie malnutrition PLAN OF CARE MS floor HH remain at baseline, no trend down anemia w/up c/w anemia of chronic disease monitor counts and transfuse if Hgb below 7.5 leukocytosis with trend up, still significant, ID follows abx urine cx +Ecoli infection-vs colonization, no significant pyuria or bacteriuria as per ID notes pelvic us noted , c/w known hx of endometrium malignancy will get CT A/P in am significant leukocytosis possibly due to infection vs myeloproliferative disorder vs leukemoid reaction heme follows Arvind 2 pending PLT elevated wound care as per wound nurse recommendations plastic surgery eval appreciated per surgeon patient does not need urgent surgical intervention plastic surgeon doubt that sacral decub is a a source of leucocytosis recommended optimize nutritional status dietary eval nutritional supplements added as per dietary recommendations pain management bowel regimen venous Duplex + acute RLE DVT per heme recommended supportive care , no IVC filter DVT prophylaxis DNR DNI status consider hospice eval case discussed and evaluated by supervising physician Subjective Allergies: Coded Allergies: No Known Allergies (Unverified , 05/05/17) Subjective no signs of distress afebrile, K- and Mg stable after replacement significant leukocytosis with trend up-70 HH stable, at baseline Objective Last 24 Hour Vital Signs Date Time Temp Pulse Resp B/P (MAP) Pulse Ox O2 Delivery O2 Flow Rate FiO2 05/10/17 08:11 96.9 132 20 110/64 100 Nasal Cannula 2.0 05/10/17 04:00 99.0 98 20 112/62 96 Nasal Cannula 3.0 05/10/17 00:00 97.2 95 20 97/45 98 Nasal Cannula 3.0 05/09/17 20:00 98.2 98 20 99/61 99 Nasal Cannula 3.0 05/09/17 16:00 97.5 99 20 111/57 99 Nasal Cannula 3.0 05/09/17 12:29 98.0 99 20 96/54 100 Nasal Cannula Objective General Appearance: no acute distress, cachetic, other - awake, alert, bedridden chronically ill looking female HEENT: normocephalic, atraumatic, anicteric, mucous membranes moist Respiratory/Chest: lungs clear, no respiratory distress Cardiovascular: normal rate, regular rhythm, no JVD Abdomen: normal bowel sounds, soft, non tender Extremities: no edema, pedal pulses normal Skin: other - sacral decub st 4, L buttock and R trochanter DTI -all POA Neurologic/Psychiatric: abnormal gait, alert, responsive Musculoskeletal: atrophy - BLE Microbiology Date/Time Source Procedure Growth Status 05/08/17 18:15 Blood Blood Culture - Preliminary NO GROWTH AFTER 24 HOURS Resulted 05/08/17 18:00 Blood Blood Culture - Preliminary NO GROWTH AFTER 24 HOURS Resulted 05/08/17 15:30 Urine,Clean Catch Urine Culture - Preliminary NO GROWTH Resulted Laboratory Tests 05/09/17 12:45: White Blood Count 65.4*H, Red Blood Count 4.04L, Hemoglobin 10.0L, Hematocrit 33.1L, Mean Corpuscular Volume 82, Mean Corpuscular Hemoglobin 24.7L, Mean Corpuscular Hemoglobin Concent 30.1L, Red Cell Distribution Width 18.8H, Platelet Count 1033*H, Mean Platelet Volume 5.3L, Neutrophils (%) (Auto) , Lymphocytes (%) (Auto) , Monocytes (%) (Auto) , Eosinophils (%) (Auto) , Basophils (%) (Auto) , Differential Total Cells Counted 100, Neutrophils % ( Manual) 89H, Lymphocytes % (Manual) 5L, Monocytes % (Manual) 3, Eosinophils % ( Manual) 0, Basophils % (Manual) 0, Band Neutrophils 3, Platelet Estimate IncreasedH, Platelet Morphology Normal, Anisocytosis 1+, Prothrombin Time 12.1H , Prothromb Time International Ratio 1.2H 05/09/17 16:32: Vancomycin Level Trough 10.5 05/10/17 05:00: White Blood Count 75.0*H, Red Blood Count 3.73L, Hemoglobin 9.7L, Hematocrit 30.8L, Mean Corpuscular Volume 83, Mean Corpuscular Hemoglobin 26.0L, Mean Corpuscular Hemoglobin Concent 31.5L, Red Cell Distribution Width 19.4H, Platelet Count 982H, Mean Platelet Volume 5.1L, Neutrophils (%) (Auto) , Lymphocytes (%) (Auto) , Monocytes (%) (Auto) , Eosinophils (%) (Auto) , Basophils (%) (Auto) , Neutrophils % (Manual) [Pending], Lymphocytes % (Manual) [Pending], Platelet Estimate [Pending], Platelet Morphology [Pending], Sodium Level 141, Potassium Level 3.8, Chloride Level 103, Carbon Dioxide Level 25, Anion Gap 13, Blood Urea Nitrogen 8, Creatinine 0.6, Estimat Glomerular Filtration Rate > 60, Glucose Level 115H, Calcium Level 9.0, Magnesium Level 1.8 Current Medications Medications (Trade) Dose Ordered Sig/Maria Del Carmen Route PRN Reason Start Time Stop Time Status Last Admin Dose Admin Acetaminophen (Tylenol) 650 mg Q4H PRN ORAL fever 05/08/17 04:15 06/04/17 20:14 05/09/17 17:42 Al Hydroxide/Mg Hydroxide (Mylanta II) 30 ml Q6H PRN ORAL dyspepsia 05/08/17 02:15 06/04/17 20:14 Baclofen (Lioresal) 10 mg EVERY 12 HOURS ORAL 05/08/17 09:00 06/04/17 20:59 05/10/17 08:05 Dextrose (Dextrose 50%) STAT PRN IV Hypoglycemia 05/08/17 20:15 06/04/17 20:14 Hydroxyurea (Hydrea) 500 mg TID ORAL 05/10/17 09:00 05/14/17 08:59 UNV Insulin Aspart (NovoLOG) BEFORE MEALS AND HS SUBQ 05/08/17 06:30 06/04/17 20:59 05/10/17 06:19 Lorazepam (Ativan 2mg/ml 1ml) 0.5 mg Q4H PRN IV For Anxiety 05/08/17 04:15 05/12/17 20:14 Morphine Sulfate (Morphine Sulfate) 1 mg Q4H PRN IVP For Severe Pain 05/08/17 04:15 05/12/17 20:14 05/10/17 07:11 Ondansetron HCl (Zofran) 4 mg Q6H PRN IVP Nausea & Vomiting 05/08/17 02:15 06/04/17 20:14 Oxycodone HCl (Roxicodone) 10 mg Q4H PRN ORAL For Moderate Pain 05/08/17 04:15 05/12/17 20:14 05/09/17 05:01 Piperacillin/ Tazobactam/ Dextrose 50 ml @ 12.5 mls/hr EVERY 8 HOURS IVPB 05/08/17 22:00 05/13/17 17:59 05/10/17 06:17 Polyethylene Glycol (Miralax) 17 gm HSPRN PRN ORAL Constipation 05/08/17 02:15 06/07/17 02:14 Vancomycin HCl (Vanco rx to dose) 1 ea DAILY PRN MISC Per rx protocol 05/08/17 09:00 06/05/17 13:59 Vancomycin HCl 1 gm/Dextrose 275 ml @ 183.708 mls/hr Q12H IVPB 05/09/17 19:30 05/14/17 19:29 05/09/17 21:02 Zolpidem Tartrate (Ambien) 5 mg HSPRN PRN ORAL Insomnia 05/08/17 20:15 05/12/17 20:14 Lisa Lal NP (Vanchtein) May 10, 2017 08:52
--- NOTE | 2017-05-10 09:20 | General Progress Note ---
Assessment/Plan Assessment/Plan ASSESSMENT AND RECS: #. Leukocytosis in the setting of thrombocytosis. Likely is related to infection. Likely related to myeloproliferative disorder as well given counts have not improved --> JAK2 pending --> bone marrow biopsy pending, have d/w path --> continue antibiotics and monitor #. Anemia, secondary to chronic disease. --> hgb goal is >7 #. Thrombocytosis, rule out polycythemia vera versus essential thrombocytosis. JAK2 is pending as well. -->> hold off on bone marrow biopsy, likely will self resolve #. Deep venous thrombosis of the right leg Recommend conservative care, do not place ivc filter given patient asymptomatic # Endometrial carcinoma. Will need outpatient w/u # Bedbound status. # Diabetes mellitus. # Recommend conservative care. Subjective Date patient seen: May 09, 2017 Constitutional: Denies: no symptoms, chills, diaphoresis, fever, malaise, weakness, other HEENT: Denies: no symptoms, eye pain, blurred vision, tearing, double vision, ear pain, ear discharge, nose pain, nose congestion, throat pain, throat swelling, mouth pain, mouth swelling, other Cardiovascular: Denies: no symptoms, chest pain, edema, irregular heart rate, lightheadedness, palpitations, syncope, other Respiratory: Denies: no symptoms, cough, orthopnea, shortness of breath, SOB with excertion, SOB at rest, sputum, stridor, wheezing, other Gastrointestinal/Abdominal: Denies: no symptoms, abdomen distended, abdominal pain, black stools, tarry stools, blood in stool, constipated, diarrhea, difficulty swallowing, nausea, poor appetite, poor fluid intake, rectal bleeding , vomiting, other Genitourinary: Denies: no symptoms, burning, discharge, frequency, flank pain, hematuria, incontinence, pain, urgency, other Neurologic/Psychiatric: Denies: no symptoms, anxiety, depressed, emotional problems, headache, numbness, paresthesia, pre-existing deficit, seizure, tingling, tremors, weakness, other Allergies: Coded Allergies: No Known Allergies (Unverified , 05/05/17) Subjective no events noted overnight Objective Last 24 Hour Vital Signs Date Time Temp Pulse Resp B/P (MAP) Pulse Ox O2 Delivery O2 Flow Rate FiO2 05/10/17 08:11 96.9 132 20 110/64 100 Nasal Cannula 2.0 05/10/17 04:00 99.0 98 20 112/62 96 Nasal Cannula 3.0 05/10/17 00:00 97.2 95 20 97/45 98 Nasal Cannula 3.0 05/09/17 20:00 98.2 98 20 99/61 99 Nasal Cannula 3.0 05/09/17 16:00 97.5 99 20 111/57 99 Nasal Cannula 3.0 05/09/17 12:29 98.0 99 20 96/54 100 Nasal Cannula Laboratory Tests 05/09/17 12:45: White Blood Count 65.4*H, Red Blood Count 4.04L, Hemoglobin 10.0L, Hematocrit 33.1L, Mean Corpuscular Volume 82, Mean Corpuscular Hemoglobin 24.7L, Mean Corpuscular Hemoglobin Concent 30.1L, Red Cell Distribution Width 18.8H, Platelet Count 1033*H, Mean Platelet Volume 5.3L, Neutrophils (%) (Auto) , Lymphocytes (%) (Auto) , Monocytes (%) (Auto) , Eosinophils (%) (Auto) , Basophils (%) (Auto) , Differential Total Cells Counted 100, Neutrophils % ( Manual) 89H, Lymphocytes % (Manual) 5L, Monocytes % (Manual) 3, Eosinophils % ( Manual) 0, Basophils % (Manual) 0, Band Neutrophils 3, Platelet Estimate IncreasedH, Platelet Morphology Normal, Anisocytosis 1+, Prothrombin Time 12.1H , Prothromb Time International Ratio 1.2H 05/09/17 16:32: Vancomycin Level Trough 10.5 05/10/17 05:00: White Blood Count 75.0*H, Red Blood Count 3.73L, Hemoglobin 9.7L, Hematocrit 30.8L, Mean Corpuscular Volume 83, Mean Corpuscular Hemoglobin 26.0L, Mean Corpuscular Hemoglobin Concent 31.5L, Red Cell Distribution Width 19.4H, Platelet Count 982H, Mean Platelet Volume 5.1L, Neutrophils (%) (Auto) , Lymphocytes (%) (Auto) , Monocytes (%) (Auto) , Eosinophils (%) (Auto) , Basophils (%) (Auto) , Neutrophils % (Manual) [Pending], Lymphocytes % (Manual) [Pending], Platelet Estimate [Pending], Platelet Morphology [Pending], Sodium Level 141, Potassium Level 3.8, Chloride Level 103, Carbon Dioxide Level 25, Anion Gap 13, Blood Urea Nitrogen 8, Creatinine 0.6, Estimat Glomerular Filtration Rate > 60, Glucose Level 115H, Calcium Level 9.0, Magnesium Level 1.8 Height (Feet): 5 Height (Inches): 5.00 Weight (Pounds): 110 General Appearance: no apparent distress EENT: PERRL/EOMI Neck: normal alignment Cardiovascular: normal rate Respiratory/Chest: lungs clear Abdomen: non tender Genitourinary/Rectal: normal rectal exam Edema: mild edema Neurologic: alert Skin: warm/dry YANIV ROSS May 10, 2017 09:20
--- NOTE | 2017-05-10 10:51 | Infectious Diseases Prog Note ---
Assessment/Plan Assessment/Plan A; Leukemoid reaction DVT of R leg Unstageable sacral ulcer Anemia DM type 2 Uterine cancer, endometritis P; continue Vancomycin & Zosyn Subjective ROS Limited/Unobtainable: No Constitutional: Reports: no symptoms, fatigue Respiratory: Reports: no symptoms Cardiovascular: Reports: no symptoms Genitourinary: Reports: vaginal bleed/discharge, other - lower abdomial cramps Allergies: Coded Allergies: No Known Allergies (Unverified , 05/05/17) Objective Vital Signs Last 24 Hour Vital Signs Date Time Temp Pulse Resp B/P (MAP) Pulse Ox O2 Delivery O2 Flow Rate FiO2 05/10/17 08:11 96.9 132 20 110/64 100 Nasal Cannula 2.0 05/10/17 04:00 99.0 98 20 112/62 96 Nasal Cannula 3.0 05/10/17 00:00 97.2 95 20 97/45 98 Nasal Cannula 3.0 05/09/17 20:00 98.2 98 20 99/61 99 Nasal Cannula 3.0 05/09/17 16:00 97.5 99 20 111/57 99 Nasal Cannula 3.0 05/09/17 12:29 98.0 99 20 96/54 100 Nasal Cannula Height (Feet): 5 Height (Inches): 5.00 Weight (Pounds): 110 General Appearance: no acute distress, cachetic HEENT: mucous membranes moist Respiratory/Chest: lungs clear Cardiovascular: normal rate Abdomen: soft, non tender Extremities: no edema Neurologic/Psychiatric: alert, responsive Musculoskeletal: atrophy Microbiology Date/Time Source Procedure Growth Status 05/08/17 18:15 Blood Blood Culture - Preliminary NO GROWTH AFTER 24 HOURS Resulted 05/08/17 18:00 Blood Blood Culture - Preliminary NO GROWTH AFTER 24 HOURS Resulted 05/08/17 15:30 Urine,Clean Catch Urine Culture - Preliminary YEAST Resulted Laboratory Tests Test 05/09/17 12:45 05/09/17 16:32 05/10/17 05:00 White Blood Count 65.4 K/UL (4.8-10.8) *H 75.0 K/UL (4.8-10.8) *H Red Blood Count 4.04 M/UL (4.20-5.40) L 3.73 M/UL (4.20-5.40) L Hemoglobin 10.0 G/DL (12.0-16.0) L 9.7 G/DL (12.0-16.0) L Hematocrit 33.1 % (37.0-47.0) L 30.8 % (37.0-47.0) L Mean Corpuscular Volume 82 FL (80-99) 83 FL (80-99) Mean Corpuscular Hemoglobin 24.7 PG (27.0-31.0) L 26.0 PG (27.0-31.0) L Mean Corpuscular Hemoglobin Concent 30.1 G/DL (32.0-36.0) L 31.5 G/DL (32.0-36.0) L Red Cell Distribution Width 18.8 % (11.6-14.8) H 19.4 % (11.6-14.8) H Platelet Count 1033 K/UL (150-450) *H 982 K/UL (150-450) H Mean Platelet Volume 5.3 FL (6.5-10.1) L 5.1 FL (6.5-10.1) L Neutrophils (%) (Auto) % (45.0-75.0) % (45.0-75.0) Lymphocytes (%) (Auto) % (20.0-45.0) % (20.0-45.0) Monocytes (%) (Auto) % (1.0-10.0) % (1.0-10.0) Eosinophils (%) (Auto) % (0.0-3.0) % (0.0-3.0) Basophils (%) (Auto) % (0.0-2.0) % (0.0-2.0) Differential Total Cells Counted 100 Neutrophils % (Manual) 89 % (45-75) H Pending Lymphocytes % (Manual) 5 % (20-45) L Pending Monocytes % (Manual) 3 % (1-10) Eosinophils % (Manual) 0 % (0-3) Basophils % (Manual) 0 % (0-2) Band Neutrophils 3 % (0-8) Platelet Estimate Increased H Pending Platelet Morphology Normal Pending Anisocytosis 1+ Prothrombin Time 12.1 SEC (9.30-11.50) H Prothromb Time International Ratio 1.2 (0.9-1.1) H Vancomycin Level Trough 10.5 ug/mL (5.0-12.0) Sodium Level 141 MMOL/L (136-145) Potassium Level 3.8 MMOL/L (3.5-5.1) Chloride Level 103 MMOL/L (98-107) Carbon Dioxide Level 25 MMOL/L (21-32) Anion Gap 13 mmol/L (5-15) Blood Urea Nitrogen 8 mg/dL (7-18) Creatinine 0.6 MG/DL (0.55-1.30) Estimat Glomerular Filtration Rate > 60 mL/min (>60) Glucose Level 115 MG/DL (74-106) H Uric Acid 4.7 MG/DL (2.6-7.2) Calcium Level 9.0 MG/DL (8.5-10.1) Magnesium Level 1.8 MG/DL (1.8-2.4) Current Medications Medications (Trade) Dose Ordered Sig/Maria Del Carmen Route PRN Reason Start Time Stop Time Status Last Admin Dose Admin Acetaminophen (Tylenol) 650 mg Q4H PRN ORAL fever 05/08/17 04:15 06/04/17 20:14 05/09/17 17:42 Al Hydroxide/Mg Hydroxide (Mylanta II) 30 ml Q6H PRN ORAL dyspepsia 05/08/17 02:15 06/04/17 20:14 Baclofen (Lioresal) 10 mg EVERY 12 HOURS ORAL 05/08/17 09:00 06/04/17 20:59 05/10/17 08:05 Dextrose (Dextrose 50%) STAT PRN IV Hypoglycemia 05/08/17 20:15 06/04/17 20:14 Hydroxyurea (Hydrea) 500 mg TID ORAL 05/10/17 09:00 05/14/17 08:59 Insulin Aspart (NovoLOG) BEFORE MEALS AND HS SUBQ 05/08/17 06:30 06/04/17 20:59 05/10/17 06:19 Lorazepam (Ativan 2mg/ml 1ml) 0.5 mg Q4H PRN IV For Anxiety 05/08/17 04:15 05/12/17 20:14 Morphine Sulfate (Morphine Sulfate) 1 mg Q4H PRN IVP For Severe Pain 05/08/17 04:15 05/12/17 20:14 05/10/17 07:11 Ondansetron HCl (Zofran) 4 mg Q6H PRN IVP Nausea & Vomiting 05/08/17 02:15 06/04/17 20:14 Oxycodone HCl (Roxicodone) 10 mg Q4H PRN ORAL For Moderate Pain 05/08/17 04:15 05/12/17 20:14 05/09/17 05:01 Piperacillin/ Tazobactam/ Dextrose 50 ml @ 12.5 mls/hr EVERY 8 HOURS IVPB 05/08/17 22:00 05/13/17 17:59 05/10/17 06:17 Polyethylene Glycol (Miralax) 17 gm HSPRN PRN ORAL Constipation 05/08/17 02:15 06/07/17 02:14 Vancomycin HCl (Vanco rx to dose) 1 ea DAILY PRN MISC Per rx protocol 05/08/17 09:00 06/05/17 13:59 Vancomycin HCl 1 gm/Dextrose 275 ml @ 183.708 mls/hr Q12H IVPB 05/09/17 19:30 05/14/17 19:29 05/09/17 21:02 Zolpidem Tartrate (Ambien) 5 mg HSPRN PRN ORAL Insomnia 05/08/17 20:15 05/12/17 20:14 CAROLE GARCIA May 10, 2017 10:51
[2017-05-10] MEDS: Vancomycin 1gm/D5W 275ml IVPB SCH ×4 (10:57→20:13)
[2017-05-10 11:15] LABS: BAND NEUTROPHILS % (MANUAL) 0 % (0-8); BASOPHILS % (MANUAL) 0 % (0-2); EOSINOPHILS % (MANUAL) 0 % (0-3); LYMPHOCYTES % (MANUAL) 2 % (20-45); NEUTROPHILS % (MANUAL) 91 % (45-75); PLATELET ESTIMATE INCREASED; TOTAL CELLS COUNTED 100
[2017-05-10 11:16] LABS: PLATELET MORPHOLOGY NORMAL
[2017-05-10 11:55] VITALS: BP 93/53
[2017-05-10] MEDS: metroNIDAZOLE 500mg tab ORAL SCH ×2 (13:43→21:04)
[2017-05-10 16:00] VITALS: BP 96/57
[2017-05-10] MEDS ORDERED: NS 275ml ONE (17:13)
[2017-05-10] MEDS ORDERED: Morphine Sulfate 2mg/ml Inj IVP ONE (20:10)
[2017-05-10 20:22] VITALS: BP 96/53
[2017-05-11] VITALS (7 sets, daily range): BP systolic 101–115; BP diastolic 57–70
[2017-05-11] MEDS: Morphine Sulfate 4mg/ml Inj IVP PRN ×2 (00:47→10:59)
[2017-05-11] MEDS: Zosyn 3.375gm q8h **Extended infusion IVPB SCH ×3 (05:10→21:14)
[2017-05-11] MEDS: metroNIDAZOLE 500mg tab ORAL SCH ×3 (05:10→21:15)
[2017-05-11] MEDS: NovoLOG Insulin Flexpen SUBQ SCH ×4 (05:45→20:19)
[2017-05-11] MEDS ORDERED: Morphine Sulfate 2mg/ml Inj IVP ONE (08:00)
[2017-05-11] MEDS: Hydroxyurea 500mg cap ORAL SCH ×3 (08:39→17:30)
[2017-05-11] MEDS: Vancomycin 1gm/D5W 275ml IVPB SCH ×2 (08:40)
--- NOTE | 2017-05-11 11:49 | Infectious Diseases Prog Note ---
Assessment/Plan Assessment/Plan // Leukomoid reaction - suspect myeloproliferative d/o- no evidence of infectious process thus far, other than possible endometritis - heme following, Jak2 pending ( CA, DVT contributing ) - no localizing s/sx infection -Bcx NTD -u/a neg; ucx E,coli (byrne S)- consistent with asymptomatic bacteriuria //Diarrhea- r/o Cdiff // Stage IV sacral decubitus ulcer POA, not grossly infected - surveillance WCx : EColi, P Mirabilis , Diphtheroids ( Colonizer ) no intervention as per Plastic Sx // Endometrial CA - no treatment to date; ?endometritis -Pelvic US: Markedly abnormal thickened heterogeneous endometrium. Possibilities include endometritis, neoplasm. Gynecological evaluation recommended. Further evaluation with MRI may be useful as clinically indicated. Free pelvic fluid. Etiology indeterminate, but not physiologic in a postmenopausal female. Nonvisualized ovaries // Severe symptomatic microcytic anemia SP PRBCs - denies blood loss // Acute and chronic RLE DVT - SP IVC filter 05/07 // Thrombocytosis // DM2 // Physical deconditioning // NKDA // Full Code PLAN: -d/c empiric IV Vancomyin #6 - continue empiric IV zosyn d# 6/7-10 for possible endometritis ( 05/06 SP amikacin d# 1 ) -Continue empiric Flagyl #2 pending Cdiff - consider BMBx; appreciate heme onc input -f/u CT - f/u cultures - f/u Jak2; - monitor CBC, temperatures - monitor BMP - transfuse as needed - wound care - PT/OT Discussed with family at bedside. Subjective Allergies: Coded Allergies: No Known Allergies (Unverified , 05/05/17) Subjective afebrile bcx NTD Objective Vital Signs Last 24 Hour Vital Signs Date Time Temp Pulse Resp B/P (MAP) Pulse Ox O2 Delivery O2 Flow Rate FiO2 05/11/17 08:00 97.0 123 20 112/66 96 Nasal Cannula 2.0 05/11/17 04:06 97.7 94 20 102/60 99 Nasal Cannula 05/11/17 01:17 97.6 05/11/17 00:21 97.6 95 20 101/57 Nasal Cannula 05/10/17 20:22 97.1 99 20 96/53 98 Nasal Cannula 05/10/17 16:00 96.1 99 20 96/57 99 Nasal Cannula 2.0 05/10/17 11:55 97.2 100 20 93/53 100 Nasal Cannula 2.0 Height (Feet): 5 Height (Inches): 5.00 Weight (Pounds): 110 Objective General Appearance: no acute distress, cachetic HEENT: mucous membranes moist Respiratory/Chest: lungs clear Cardiovascular: normal rate Abdomen: soft, non tender Extremities: no edema Neurologic/Psychiatric: alert, responsive Musculoskeletal: atrophy Microbiology Date/Time Source Procedure Growth Status 05/08/17 18:15 Blood Blood Culture - Preliminary NO GROWTH AFTER 48 HOURS Resulted 05/08/17 18:00 Blood Blood Culture - Preliminary NO GROWTH AFTER 48 HOURS Resulted 05/08/17 15:30 Urine,Clean Catch Urine Culture - Final Angelica Albicans Complete reviewed Current Medications Medications (Trade) Dose Ordered Sig/Maria Del Carmen Route PRN Reason Start Time Stop Time Status Last Admin Dose Admin Acetaminophen (Tylenol) 650 mg Q4H PRN ORAL fever 05/08/17 04:15 06/04/17 20:14 05/09/17 17:42 Al Hydroxide/Mg Hydroxide (Mylanta II) 30 ml Q6H PRN ORAL dyspepsia 05/08/17 02:15 06/04/17 20:14 Baclofen (Lioresal) 10 mg EVERY 12 HOURS ORAL 05/08/17 09:00 06/04/17 20:59 05/11/17 08:39 Dextrose (Dextrose 50%) STAT PRN IV Hypoglycemia 05/08/17 20:15 06/04/17 20:14 Hydroxyurea (Hydrea) 500 mg TID ORAL 05/10/17 09:00 05/14/17 08:59 05/11/17 08:39 Insulin Aspart (NovoLOG) BEFORE MEALS AND HS SUBQ 05/08/17 06:30 06/04/17 20:59 05/10/17 21:05 Lorazepam (Ativan 2mg/ml 1ml) 0.5 mg Q4H PRN IV For Anxiety 05/08/17 04:15 05/12/17 20:14 Metronidazole (Flagyl) 500 mg Q8HR ORAL 05/10/17 14:00 05/17/17 13:59 05/11/17 05:10 Morphine Sulfate (Morphine Sulfate) 1 mg Q4H PRN IVP For Severe Pain 05/08/17 04:15 05/12/17 20:14 05/11/17 10:59 Ondansetron HCl (Zofran) 4 mg Q6H PRN IVP Nausea & Vomiting 05/08/17 02:15 06/04/17 20:14 Oxycodone HCl (Roxicodone) 10 mg Q4H PRN ORAL For Moderate Pain 05/08/17 04:15 05/12/17 20:14 05/09/17 05:01 Piperacillin/ Tazobactam/ Dextrose 50 ml @ 12.5 mls/hr EVERY 8 HOURS IVPB 05/08/17 22:00 05/13/17 17:59 05/11/17 05:10 Polyethylene Glycol (Miralax) 17 gm HSPRN PRN ORAL Constipation 05/08/17 02:15 06/07/17 02:14 Vancomycin HCl (Vanco rx to dose) 1 ea DAILY PRN MISC Per rx protocol 05/08/17 09:00 06/05/17 13:59 Vancomycin HCl 1 gm/Dextrose 275 ml @ 183.708 mls/hr Q12H IVPB 05/09/17 19:30 05/14/17 19:29 05/11/17 08:40 Zolpidem Tartrate (Ambien) 5 mg HSPRN PRN ORAL Insomnia 05/08/17 20:15 05/12/17 20:14 Josi Villafuerte M.D. May 11, 2017 11:49
--- NOTE | 2017-05-11 12:17 | Diagnostic Imaging Report ---
Clinical Indication: MASS abdominal pain, history of endometrial carcinoma Technique: Patient given oral contrast. IV administration nonionic contrast. Venous phase spiral acquisition obtained through the abdomen and pelvis. Multiplanar reconstructions were generated. Total dose length product 699 mGycm. CTDIvol(s) 13 mGy. Dose reduction achieved using automated exposure control Comparison: Reference made to pelvic ultrasound dated 05/06/2017 Findings: The uterus is markedly abnormal. There is thickening of the endometrium by heterogeneous soft tissue attenuation material, which is nonetheless somewhat lower in attenuation than the surrounding myometrium. The myometrium is also abnormal, heterogeneous, particularly in the area surrounding the endometrium. Adjacent to the left external iliac artery, there is a somewhat hypoattenuating structure measuring 3.4 x 2.2 cm. Uncertain as to as this represents the left ovary or pelvic adenopathy, suspect the latter. There is a very large mass in the left retroperitoneum. This measures 15 cm AP by 11 cm transverse by 16 cm craniocaudad. This is contiguous with the spine, results in erosion of the anterolateral L2, L3, and L4 vertebral bodies to the left of midline. No definite extension of tumor in the spinal canal, however. There is no evidence of erosion of the posterior elements. The tumor nearly completely surrounds the abdominal aorta, which it displaces anteriorly. It is contiguous with but does not surround the left common iliac artery. The tumor also slightly displaces the inferior vena cava, but does not appear significantly compromise it. The left renal artery is contiguous with but not surrounded by or obstructed by the tumor. The left renal vein is likewise contiguous with but not surrounded by the tumor. The left kidney is displaced laterally and slightly compressed by the mass. There is left hydronephrosis and proximal left hydroureter. The hydroureter may be due to extrinsic compression by the large mass or by more distal adenopathy. There are also enlarged iliac chain nodes bilaterally, in addition to the possible mass described above. There is trace free intraperitoneal fluid present. Multiple low-attenuation masses, measuring up to 1.5 cm diameter, are seen within the liver. The gallbladder contains a gallstone in the neck. It is nondistended. The pancreatic head and uncinate are displaced anteriorly by the mass, otherwise unremarkable. The spleen is mildly enlarged, measuring 13.6 cm long axis dimension. The left adrenal is diffusely prominent, no focal abnormality. The right adrenal is unremarkable. The right kidney demonstrates a calyceal calculus which appears to be nonobstructive. The left kidney demonstrates subcentimeter low-attenuation lesions, in addition to the previously described hydronephrosis. There is mild wall thickening of the rectum. There is equivocal mild wall thickening of the sigmoid, most likely an artifact of under distention. The appendix is not identified, but no findings to suggest acute appendicitis are evident. No small bowel distention. Contrast is seen to traverse the entirety of the small bowel and reached the distal colon. Distal esophagus, stomach, duodenum are unremarkable. There is a Reyes catheter within the bladder. Small amount of air within the bladder is presumably related to the Reyes catheterization. There is generalized edema of the subcutaneous fat. There is a moderate left, trace right pleural fluid, resultant basilar compressive atelectatic changes. The demonstrate degenerative spondylosis, in addition to the L2, L3, and L4 erosive changes.. Impression: Abnormal uterus and endometrium, as described, consistent with stated clinical history of endometrial carcinoma. Large mass in the left retroperitoneum, presumably confluent metastatic adenopathy. This erodes the L2, L3, and L4 vertebral bodies, and displaces surrounding organs as described. -- It is necrotic centrally. Other smaller enlarged enlarged retroperitoneal nodes, likewise consistent with metastatic adenopathy Moderate left hydronephrosis, due to ureteral obstruction either by large mass or more distal nodes Multiple hepatic masses, consistent with liver metastases Trace free intraperitoneal fluid, most likely representing malignant ascites Other evidence of anasarca, with with bilateral left greater than right pleural effusions and edema of the subcutaneous fat Nonobstructive right renal calyceal calculus Mild wall thickening of the rectum, equivocal mild wall thickening of the sigmoid, the latter most likely artifact of under distention. Proctitis/sigmoid colitis not completely excludable Diverticulosis. No evidence of diverticulitis Cholelithiasis Reyes catheter in the bladder. Air within the bladder is presumably related to such. Other findings as noted, including basilar compressive atelectatic changes of the lungs, degenerative spondylosis The CT scanner at [facility] is accredited by the [employer] and the scans are performed using protocols designed to limit radiation exposure to as low as reasonably achievable to attain images of sufficient resolution adequate for diagnostic evaluation.
[2017-05-11] MEDS: oxyCODONE 5mg IR tab ORAL PRN ×2 (13:29→20:15)
[2017-05-11] MEDS ORDERED: Morphine Sulfate 2mg/ml Inj IVP PRN (18:15)
--- NOTE | 2017-05-11 22:04 | Pulmonology Progress Note ---
Assessment/Plan Problems: (1) Anemia (2) Leukocytosis (3) Diabetes mellitus (4) Endometrial cancer Assessment/Plan wbc higher discussed with pts sister, all she wants is that her sister get "better" Urology evaluation. check cultures; Subjective ROS Limited/Unobtainable: No Constitutional: Reports: no symptoms HEENT: Repors: no symptoms Allergies: Coded Allergies: No Known Allergies (Unverified , 05/05/17) Objective Last 24 Hour Vital Signs Date Time Temp Pulse Resp B/P (MAP) Pulse Ox O2 Delivery O2 Flow Rate FiO2 05/11/17 20:12 Nasal Cannula 2.0 28 05/11/17 20:12 99 Nasal Cannula 2.0 28 05/11/17 19:26 98.2 127 21 108/70 98 Nasal Cannula 2.0 05/11/17 16:00 97.3 98 18 109/68 96 Nasal Cannula 2.0 05/11/17 12:00 97.0 122 18 115/66 97 Nasal Cannula 2.0 05/11/17 11:29 97.0 05/11/17 08:00 97.0 123 20 112/66 96 Nasal Cannula 2.0 05/11/17 04:06 97.7 94 20 102/60 99 Nasal Cannula 05/11/17 00:21 97.6 95 20 101/57 Nasal Cannula Intake and Output 05/11/17 05/12/17 19:00 07:00 Intake Total 742.500 ml Output Total 1000 ml Balance -257.500 ml Intake Oral 380 ml IV Total 362.500 ml Output Urine Total 1000 ml # Bowel Movements 3 General Appearance: WD/WN HEENT: normocephalic, atraumatic Respiratory/Chest: chest wall non-tender, lungs clear Breasts: no masses Cardiovascular: normal peripheral pulses Abdomen: normal bowel sounds, soft, non tender Extremities: no cyanosis Skin: no lesions Neurologic/Psychiatric: consultant intern II-XII grossly normal Current Medications Medications (Trade) Dose Ordered Sig/Maria Del Carmen Route PRN Reason Start Time Stop Time Status Last Admin Dose Admin Acetaminophen (Tylenol) 650 mg Q4H PRN ORAL fever 05/08/17 04:15 06/04/17 20:14 05/09/17 17:42 Al Hydroxide/Mg Hydroxide (Mylanta II) 30 ml Q6H PRN ORAL dyspepsia 05/08/17 02:15 06/04/17 20:14 Baclofen (Lioresal) 10 mg EVERY 12 HOURS ORAL 05/08/17 09:00 06/04/17 20:59 05/11/17 20:14 Dextrose (Dextrose 50%) STAT PRN IV Hypoglycemia 05/08/17 20:15 06/04/17 20:14 Hydroxyurea (Hydrea) 500 mg TID ORAL 05/10/17 09:00 05/14/17 08:59 05/11/17 17:30 Insulin Aspart (NovoLOG) BEFORE MEALS AND HS SUBQ 05/08/17 06:30 06/04/17 20:59 05/11/17 20:19 Lorazepam (Ativan 2mg/ml 1ml) 0.5 mg Q4H PRN IV For Anxiety 05/08/17 04:15 05/12/17 20:14 Metronidazole (Flagyl) 500 mg Q8HR ORAL 05/10/17 14:00 05/17/17 13:59 05/11/17 21:15 Morphine Sulfate (Morphine Sulfate) 1 mg Q4H PRN IVP For Severe Pain 05/11/17 18:15 05/12/17 20:14 Ondansetron HCl (Zofran) 4 mg Q6H PRN IVP Nausea & Vomiting 05/08/17 02:15 06/04/17 20:14 Oxycodone HCl (Roxicodone) 10 mg Q4H PRN ORAL For Moderate Pain 05/08/17 04:15 05/12/17 20:14 05/11/17 20:15 Piperacillin/ Tazobactam/ Dextrose 50 ml @ 12.5 mls/hr EVERY 8 HOURS IVPB 05/08/17 22:00 05/13/17 17:59 05/11/17 21:14 Polyethylene Glycol (Miralax) 17 gm HSPRN PRN ORAL Constipation 05/08/17 02:15 06/07/17 02:14 Zolpidem Tartrate (Ambien) 5 mg HSPRN PRN ORAL Insomnia 05/08/17 20:15 05/12/17 20:14 RIN CALDWELL May 11, 2017 22:04
[2017-05-12] VITALS (7 sets, daily range): BP systolic 83–113; BP diastolic 54–68
[2017-05-12] MEDS: metroNIDAZOLE 500mg tab ORAL SCH ×3 (05:09→21:12)
[2017-05-12] MEDS: Zosyn 3.375gm q8h **Extended infusion IVPB SCH ×3 (05:09→21:12)
[2017-05-12] MEDS: NovoLOG Insulin Flexpen SUBQ SCH ×4 (06:04→20:46)
[2017-05-12] MEDS: oxyCODONE 5mg IR tab ORAL PRN ×3 (06:55→21:12)
--- NOTE | 2017-05-12 08:09 | General Progress Note ---
Assessment/Plan Assessment/Plan ASSESSMENT AND RECS: #. Leukocytosis in the setting of thrombocytosis. Likely is related to infection. Likely related to myeloproliferative disorder as well given counts have not improved --> JAK2 pending --> possible bone marrow biopsy pending, have d/w path --> continue antibiotics and monitor # Endometrial carcinoma. Will need outpatient w/u --> 05/11: had long conversation with pt's sister, considering further treatments vs hospice. The patient has poor performance status, her sister agreeable to comfort care however still wants vp onc work up at [facility]. #. Anemia, secondary to chronic disease. --> hgb goal is >7 #. Thrombocytosis, rule out polycythemia vera versus essential thrombocytosis. JAK2 is pending as well. -->> hold off on bone marrow biopsy, likely will self resolve #. Deep venous thrombosis of the right leg Recommend conservative care, do not place ivc filter given patient asymptomatic # Endometrial carcinoma. Will need outpatient w/u # Bedbound status. # Diabetes mellitus. # Recommend conservative care. Subjective Date patient seen: May 11, 2017 ROS Limited/Unobtainable: Yes Allergies: Coded Allergies: No Known Allergies (Unverified , 05/05/17) Subjective bed bound, wbc still elevated Objective Last 24 Hour Vital Signs Date Time Temp Pulse Resp B/P (MAP) Pulse Ox O2 Delivery O2 Flow Rate FiO2 05/12/17 04:04 97.7 95 20 113/64 97 Nasal Cannula 2.0 05/11/17 23:41 97.5 101 20 108/65 97 Nasal Cannula 2.0 05/11/17 20:12 Nasal Cannula 2.0 28 05/11/17 20:12 99 Nasal Cannula 2.0 28 05/11/17 19:26 98.2 127 21 108/70 98 Nasal Cannula 2.0 05/11/17 16:00 97.3 98 18 109/68 96 Nasal Cannula 2.0 05/11/17 12:00 97.0 122 18 115/66 97 Nasal Cannula 2.0 05/11/17 11:29 97.0 05/11/17 08:00 97.0 123 20 112/66 96 Nasal Cannula 2.0 Height (Feet): 5 Height (Inches): 5.00 Weight (Pounds): 110 General Appearance: no apparent distress EENT: normal ENT inspection Neck: normal alignment Cardiovascular: normal rate Respiratory/Chest: no accessory muscle use Abdomen: no mass Extremities: non-tender Skin: normal pigmentation, warm/dry Yong Jeong May 12, 2017 08:09
[2017-05-12] MEDS: Hydroxyurea 500mg cap ORAL SCH ×3 (09:13→17:37)
--- NOTE | 2017-05-12 11:59 | Infectious Diseases Prog Note ---
Assessment/Plan Assessment/Plan // Leukomoid reaction - suspect myeloproliferative d/o, with a component of possible infected necrotic left retroperitoneal mass, protictis/sigmoid colitis and endometritis- heme following, Jak2 pending ( CA, DVT contributing ) -Bcx NTD -u/a neg; ucx E,coli (byrne S)- consistent with asymptomatic bacteriuria -CT abd/p: Abnormal uterus and endometrium, as described, consistent with stated clinical history of endometrial carcinoma. Large mass in the left retroperitoneum, presumably confluent metastatic adenopathy. This erodes the L2 , L3, and L4 vertebral bodies, and displaces surrounding organs as described. It is necrotic centrally. Other smaller enlarged enlarged retroperitoneal nodes , likewise consistent with metastatic adenopathy. Moderate left hydronephrosis, due to ureteral obstruction either by large mass or more distal nodes. Multiple hepatic masses, consistent with liver metastases. Trace free intraperitoneal fluid, most likely representing malignant ascites. Other evidence of anasarca, with with bilateral left greater than right pleural effusions and edema of the subcutaneous fat. Nonobstructive right renal calyceal calculus. Mild wall thickening of the rectum , equivocal mild wall thickening of the sigmoid, the latter most likely artifact of under distention. Proctitis/sigmoid colitis not completely excludable. Diverticulosis. No evidence of diverticulitis. Cholelithiasis. Reyes catheter in the bladder. Air within the bladder is presumably related to such. //Large Mass L retroperitoneum- ?related to known endometrial CA vs other malignancy. Evidence of metastatic disease on CT //Oropharyngeal thrush // Endometrial CA - no treatment to date; ?endometritis- -Pelvic US: Markedly abnormal thickened heterogeneous endometrium. Possibilities include endometritis, neoplasm. Gynecological evaluation recommended. Further evaluation with MRI may be useful as clinically indicated. Free pelvic fluid. Etiology indeterminate, but not physiologic in a postmenopausal female. Nonvisualized ovaries //Diarrhea- r/o Cdiff // Stage IV sacral decubitus ulcer POA, not grossly infected - surveillance WCx : +4 EColi(Byrne S),+4 P Mirabilis (byrne S) , +3 Diphtheroids, +2 GBS ( Colonizer ) no intervention as per Plastic Sx // Severe symptomatic microcytic anemia SP PRBCs - denies blood loss // Acute and chronic RLE DVT - SP IVC filter 05/07 // Thrombocytosis // DM2 // Physical deconditioning // NKDA // Full Code //VRE colonized PLAN: -start Nystatin swish and swallow for thrush- if not improving in the next 48hrs , will start PO fluconazole - continue empiric IV zosyn d# 7/10-14 for possible endometritis, collitis and possible infected necrotic mass ( 05/11 SP IV Vancomycin #6) ( 05/06 SP amikacin d# 1 ) -Continue empiric Flagyl #3 pending Cdiff - consider BMBx; appreciate heme onc input - f/u cultures - f/u Jak2; - monitor CBC, temperatures - monitor BMP - transfuse as needed - wound care - PT/OT Discussed with family at bedside. Subjective Allergies: Coded Allergies: No Known Allergies (Unverified , 05/05/17) Subjective afebrile bcx NTD +sore throat Objective Vital Signs Last 24 Hour Vital Signs Date Time Temp Pulse Resp B/P (MAP) Pulse Ox O2 Delivery O2 Flow Rate FiO2 05/12/17 08:00 98.6 106 16 102/59 97 Nasal Cannula 2.0 05/12/17 07:46 Nasal Cannula 2.0 28 05/12/17 07:46 98 Nasal Cannula 2.0 28 05/12/17 04:04 97.7 95 20 113/64 97 Nasal Cannula 2.0 05/11/17 23:41 97.5 101 20 108/65 97 Nasal Cannula 2.0 05/11/17 20:12 Nasal Cannula 2.0 28 05/11/17 20:12 99 Nasal Cannula 2.0 28 05/11/17 19:26 98.2 127 21 108/70 98 Nasal Cannula 2.0 05/11/17 16:00 97.3 98 18 109/68 96 Nasal Cannula 2.0 05/11/17 12:00 97.0 122 18 115/66 97 Nasal Cannula 2.0 Height (Feet): 5 Height (Inches): 5.00 Weight (Pounds): 110 Objective General Appearance: no acute distress, cachetic HEENT: mucous membranes moist, +thrust pharynx and soft palate Respiratory/Chest: lungs clear Cardiovascular: normal rate Abdomen: soft, non tender Extremities: no edema Neurologic/Psychiatric: alert, responsive Musculoskeletal: atrophy reviewed reviewed Current Medications Medications (Trade) Dose Ordered Sig/Maria Del Carmen Route PRN Reason Start Time Stop Time Status Last Admin Dose Admin Acetaminophen (Tylenol) 650 mg Q4H PRN ORAL fever 05/08/17 04:15 06/04/17 20:14 05/09/17 17:42 Al Hydroxide/Mg Hydroxide (Mylanta II) 30 ml Q6H PRN ORAL dyspepsia 05/08/17 02:15 06/04/17 20:14 Baclofen (Lioresal) 10 mg EVERY 12 HOURS ORAL 05/08/17 09:00 06/04/17 20:59 05/12/17 09:13 Dextrose (Dextrose 50%) STAT PRN IV Hypoglycemia 05/08/17 20:15 06/04/17 20:14 Hydroxyurea (Hydrea) 500 mg TID ORAL 05/10/17 09:00 05/14/17 08:59 05/12/17 09:13 Insulin Aspart (NovoLOG) BEFORE MEALS AND HS SUBQ 05/08/17 06:30 06/04/17 20:59 05/12/17 11:27 Lorazepam (Ativan 2mg/ml 1ml) 0.5 mg Q4H PRN IV For Anxiety 05/08/17 04:15 05/12/17 20:14 Metronidazole (Flagyl) 500 mg Q8HR ORAL 05/10/17 14:00 05/17/17 13:59 05/12/17 05:09 Morphine Sulfate (Morphine Sulfate) 1 mg Q4H PRN IVP For Severe Pain 05/11/17 18:15 05/12/17 20:14 Ondansetron HCl (Zofran) 4 mg Q6H PRN IVP Nausea & Vomiting 05/08/17 02:15 06/04/17 20:14 Oxycodone HCl (Roxicodone) 10 mg Q4H PRN ORAL For Moderate Pain 05/08/17 04:15 05/12/17 20:14 05/12/17 06:55 Piperacillin/ Tazobactam/ Dextrose 50 ml @ 12.5 mls/hr EVERY 8 HOURS IVPB 05/08/17 22:00 05/13/17 17:59 05/12/17 05:09 Polyethylene Glycol (Miralax) 17 gm HSPRN PRN ORAL Constipation 05/08/17 02:15 06/07/17 02:14 Zolpidem Tartrate (Ambien) 5 mg HSPRN PRN ORAL Insomnia 05/08/17 20:15 05/12/17 20:14 Josi Villafuerte M.D. May 12, 2017 11:59
[2017-05-12] MEDS: Nystatin Susp 500,000 units/5ml ORAL SCH ×3 (14:36→20:46)
--- NOTE | 2017-05-12 16:17 | General Progress Note ---
Assessment/Plan Assessment/Plan ASSESSMENT AND RECS: #. Leukocytosis in the setting of thrombocytosis. Likely is related to infection. Likely related to myeloproliferative disorder as well given counts have not improved --> JAK2 pending --> possible bone marrow biopsy pending, have d/w path --> continue antibiotics and monitor # Endometrial carcinoma. Will need outpatient w/u --> 05/11: had long conversation with pt's sister, considering further treatments vs hospice. The patient has poor performance status, her sister agreeable to comfort care however still wants electrical instrumentation technician onc work up at [facility]. #. Anemia, secondary to chronic disease. --> hgb goal is >7 #. Thrombocytosis, rule out polycythemia vera versus essential thrombocytosis. JAK2 is pending as well. -->> hold off on bone marrow biopsy, likely will self resolve #. Deep venous thrombosis of the right leg Recommend conservative care, do not place ivc filter given patient asymptomatic # Endometrial carcinoma. Will need outpatient w/u # Bedbound status. # Diabetes mellitus. # Recommend conservative care. Subjective ROS Limited/Unobtainable: Yes Allergies: Coded Allergies: No Known Allergies (Unverified , 05/05/17) Subjective bed bound, wbc still elevated Objective Last 24 Hour Vital Signs Date Time Temp Pulse Resp B/P (MAP) Pulse Ox O2 Delivery O2 Flow Rate FiO2 05/12/17 12:00 97.2 101 20 102/54 97 Nasal Cannula 2.0 05/12/17 08:00 98.6 106 16 102/59 97 Nasal Cannula 2.0 05/12/17 07:46 Nasal Cannula 2.0 28 05/12/17 07:46 98 Nasal Cannula 2.0 28 05/12/17 04:04 97.7 95 20 113/64 97 Nasal Cannula 2.0 05/11/17 23:41 97.5 101 20 108/65 97 Nasal Cannula 2.0 05/11/17 20:12 Nasal Cannula 2.0 28 05/11/17 20:12 99 Nasal Cannula 2.0 28 05/11/17 19:26 98.2 127 21 108/70 98 Nasal Cannula 2.0 Laboratory Tests 05/12/17 12:15: Chlamydia trachomatis RNA [Pending], Neisseria gonorrhoeae RNA [Pending] Height (Feet): 5 Height (Inches): 5.00 Weight (Pounds): 110 General Appearance: no apparent distress EENT: normal ENT inspection Neck: normal alignment Respiratory/Chest: chest wall non-tender, decreased breath sounds Edema: moderate edema Neurologic: unresponsive Yong Jeong May 12, 2017 16:17
--- NOTE | 2017-05-12 16:39 | Pulmonology Progress Note ---
Assessment/Plan Problems: (1) Anemia (2) Leukocytosis (3) Diabetes mellitus (4) Endometrial cancer Assessment/Plan discussed with pts sister, all she wants is that her sister get "better" She agreed with hospice but she is no where to be found to sign the consents for Hospice. Urology evaluation pending check cultures continue abx Subjective ROS Limited/Unobtainable: No Constitutional: Reports: no symptoms HEENT: Repors: no symptoms Allergies: Coded Allergies: No Known Allergies (Unverified , 05/05/17) Objective Last 24 Hour Vital Signs Date Time Temp Pulse Resp B/P (MAP) Pulse Ox O2 Delivery O2 Flow Rate FiO2 05/12/17 12:00 97.2 101 20 102/54 97 Nasal Cannula 2.0 05/12/17 08:00 98.6 106 16 102/59 97 Nasal Cannula 2.0 05/12/17 07:46 Nasal Cannula 2.0 28 05/12/17 07:46 98 Nasal Cannula 2.0 28 05/12/17 04:04 97.7 95 20 113/64 97 Nasal Cannula 2.0 05/11/17 23:41 97.5 101 20 108/65 97 Nasal Cannula 2.0 05/11/17 20:12 Nasal Cannula 2.0 28 05/11/17 20:12 99 Nasal Cannula 2.0 28 05/11/17 19:26 98.2 127 21 108/70 98 Nasal Cannula 2.0 General Appearance: cachetic HEENT: normocephalic Respiratory/Chest: chest wall non-tender, normal breath sounds Breasts: no masses Cardiovascular: normal rate Abdomen: normal bowel sounds, no organomegaly Extremities: no clubbing Laboratory Tests 05/12/17 12:15: Chlamydia trachomatis RNA [Pending], Neisseria gonorrhoeae RNA [Pending] Current Medications Medications (Trade) Dose Ordered Sig/Maria Del Carmen Route PRN Reason Start Time Stop Time Status Last Admin Dose Admin Acetaminophen (Tylenol) 650 mg Q4H PRN ORAL fever 05/08/17 04:15 06/04/17 20:14 05/09/17 17:42 Al Hydroxide/Mg Hydroxide (Mylanta II) 30 ml Q6H PRN ORAL dyspepsia 05/08/17 02:15 06/04/17 20:14 Baclofen (Lioresal) 10 mg EVERY 12 HOURS ORAL 05/08/17 09:00 06/04/17 20:59 05/12/17 09:13 Dextrose (Dextrose 50%) STAT PRN IV Hypoglycemia 05/08/17 20:15 06/04/17 20:14 Hydroxyurea (Hydrea) 500 mg TID ORAL 05/10/17 09:00 05/14/17 08:59 05/12/17 14:36 Insulin Aspart (NovoLOG) BEFORE MEALS AND HS SUBQ 05/08/17 06:30 06/04/17 20:59 05/12/17 11:27 Lorazepam (Ativan 2mg/ml 1ml) 0.5 mg Q4H PRN IV For Anxiety 05/08/17 04:15 05/12/17 20:14 Metronidazole (Flagyl) 500 mg Q8HR ORAL 05/10/17 14:00 05/17/17 13:59 05/12/17 14:36 Morphine Sulfate (Morphine Sulfate) 1 mg Q4H PRN IVP For Severe Pain 05/11/17 18:15 05/12/17 20:14 Nystatin (Nystatin) 5 ml QID ORAL 05/12/17 14:00 05/19/17 13:59 05/12/17 14:36 Ondansetron HCl (Zofran) 4 mg Q6H PRN IVP Nausea & Vomiting 05/08/17 02:15 06/04/17 20:14 Oxycodone HCl (Roxicodone) 10 mg Q4H PRN ORAL For Moderate Pain 05/08/17 04:15 05/12/17 20:14 05/12/17 14:20 Piperacillin/ Tazobactam/ Dextrose 50 ml @ 12.5 mls/hr EVERY 8 HOURS IVPB 05/08/17 22:00 05/13/17 17:59 05/12/17 14:36 Polyethylene Glycol (Miralax) 17 gm HSPRN PRN ORAL Constipation 05/08/17 02:15 06/07/17 02:14 Zolpidem Tartrate (Ambien) 5 mg HSPRN PRN ORAL Insomnia 05/08/17 20:15 05/12/17 20:14 RIN CALDWELL May 12, 2017 16:39
[2017-05-12] MEDS ORDERED: Haloperidol 5mg/ml Inj IM PRN (19:45)
[2017-05-12] MEDS: Morphine Sulfate 2mg/ml Inj IVP PRN (21:46)
[2017-05-13] VITALS: BP 105/63
[2017-05-13 04:00] VITALS: BP 107/56
[2017-05-13] MEDS: Zosyn 3.375gm q8h **Extended infusion IVPB SCH ×2 (05:43→14:00)
[2017-05-13] MEDS: metroNIDAZOLE 500mg tab ORAL SCH (05:43)
[2017-05-13] MEDS: NovoLOG Insulin Flexpen SUBQ SCH ×2 (05:46→12:40)
[2017-05-13 06:49] LABS: INR 1.2 (0.9-1.1)
[2017-05-13] MEDS: Morphine Sulfate 2mg/ml Inj IVP PRN ×5 (06:49→20:33)
[2017-05-13 06:58] LABS: ALANINE AMINOTRANSFERASE < 6 U/L (12-78); ALBUMIN/GLOBULIN RATIO 0.4 (1.0-2.7); ANION GAP 10 mmol/L (5-15); ASPARTATE AMINO TRANSFERASE 9 U/L (15-37); CALCIUM 8.3 MG/DL (8.5-10.1); CARBON DIOXIDE 27 MMOL/L (21-32); CHLORIDE 101 MMOL/L (98-107); CREATININE 0.7 MG/DL (0.55-1.30); GLOMERULAR FILTRATION RATE > 60 mL/min (>60); MAGNESIUM 1.8 MG/DL (1.8-2.4); PHOSPHORUS 3.7 MG/DL (2.5-4.9); SODIUM 139 MMOL/L (136-145); TOTAL PROTEIN 5.8 G/DL (6.4-8.2)
[2017-05-13 06:59] LABS: POTASSIUM 2.5 MMOL/L (3.5-5.1)
[2017-05-13 07:07] LABS: MEAN CORPUSCULAR HEMOGLOBIN 26.1 PG (27.0-31.0); MEAN CORPUSCULAR HGB CONC 31.8 G/DL (32.0-36.0); MEAN CORPUSCULAR VOLUME 82 FL (80-99); MEAN PLATELET VOLUME 5.3 FL (6.5-10.1); PLATELET COUNT 811 K/UL (150-450); RED BLOOD COUNT 3.44 M/UL (4.20-5.40); RED CELL DISTRIBUTION WIDTH 19.5 % (11.6-14.8)
[2017-05-13 07:35] LABS: WHITE BLOOD COUNT 49.4 K/UL (4.8-10.8)
[2017-05-13 08:00] VITALS: BP 97/64
--- NOTE | 2017-05-13 09:19 | Diagnostic Imaging Report ---
Indications: Altered metal status Technique: Spiral acquisitions obtained through the brain. Angled axial and coronal 5 x 5 mm slices were reconstructed. Total dose length product 1004 and 78 mGycm. CTDI vol(s) 70 mGy. Dose reduction achieved using automated exposure control Comparison: None Findings: There is image degradation due to motion artifact. And streak artifact also obscures the posterior fossa some extent. There is age-related enlargement of ventricles and extra-axial CSF spaces. There is some periventricular deep white matter chronic ischemic change. No gross acute intracranial hemorrhage or edema, mass effect or midline shift. Intact calvarium. Visualized orbits and sinuses are unremarkable. Impression: Somewhat limited exam, as described No gross acute intracranial bleed or mass effect Chronic and age-related changes This agrees with the preliminary interpretation provided overnight by [facility]erad[facility] service. The CT scanner at [facility] is accredited by the [employer] and the scans are performed using protocols designed to limit radiation exposure to as low as reasonably achievable to attain images of sufficient resolution adequate for diagnostic evaluation.
[2017-05-13] MEDS: Nystatin Susp 500,000 units/5ml ORAL SCH ×3 (09:31→13:35)
[2017-05-13] MEDS: Hydroxyurea 500mg cap ORAL SCH ×3 (09:31→13:35)
--- NOTE | 2017-05-13 09:46 | Consultation ---
DATE OF CONSULTATION: 05/12/2017 UROLOGY CONSULTATION CONSULTING PHYSICIAN: Delfino Doyle M.D. ATTENDING/CONSULTING PHYSICIAN: Margarita Mayers M.D. CHIEF COMPLAINT: I was asked by Dr. Mayers to evaluate this very unfortunate 62-year-old female regarding history of left-sided obstructive hydronephrosis secondary to malignancy. Briefly, the patient has a history of endometrial cancer with widespread metastasis and bulky adenopathy. She presented to the emergency room with a history of significant anemia and severe leukocytosis. She was also found to have evidence of urinary tract infection. Given her overall health situation, she was admitted to the hospital for management of these issues. A CT scan of the abdomen and pelvis revealed evidence of endometrial cancer with confluent bulky metastatic adenopathy. There appeared to be left-sided hydronephrosis, likely secondary to the ureter being compressed by this process. Given the above, I was asked to evaluate the patient. PAST MEDICAL HISTORY: 1. Diabetes mellitus. 2. Endometrial cancer with metastatic spread and adenopathy. 3. Stage IV sacral decubitus ulceration. 4. Anemia. 5. Urinary tract infection. PAST SURGICAL HISTORY: Unknown. MEDICATIONS: Please see the chart for current medications and administration details. Briefly, the patient is receiving Zosyn, vancomycin, and amikacin for antibiotic coverage. ALLERGIES: No known drug allergies. SOCIAL HISTORY: Unremarkable for tobacco, alcohol, or drug use. The patient lives in a longterm facility. FAMILY HISTORY: Noncontributory. REVIEW OF SYSTEMS: A 12-system review of systems essentially unremarkable outside what was described above. PHYSICAL EXAMINATION: GENERAL: The patient is an older female, awake, but not really alert, in no obvious distress. HEENT: NC/AT. NECK: Supple. Full range of motion. Oropharynx clear. CHEST: Within normal limits. ABDOMEN: Soft, nontender, and nondistended. EXTREMITIES: Warm and well perfused. No cyanosis, clubbing, or edema. BACK: No CVA tenderness to percussion. NEUROLOGIC: Deferred as the patient cannot cooperate with the exam. LABORATORY DATA: White blood cell count 75, hematocrit 30.8, and platelets 982. PT 12.1 and INR 1.2. Urinalysis, specific gravity 1.010, pH 5.0. Dip test negative for all findings except 2+ leukocyte esterase. Microanalysis with 2 to 4 white blood cells per high-power field and few bacteria seen. Sodium 141, potassium 3.8, chloride 103, bicarbonate 25, BUN 8, creatinine 0.6, and glucose 115. Calcium 9.2. DIAGNOSTIC IMAGING: CT scan of the abdomen and pelvis revealed abnormal uterus and endometrium consistent with history of endometrial carcinoma. There is a large mass in the left retroperitoneum, presumably confluent metastatic adenopathy eroding the L2, L3 and L4 vertebrae and displacing surrounding organs. The mass is necrotic centrally. There are other enlarged retroperitoneal lymph nodes and left moderate hydronephrosis due to ureteral obstruction large mass or more distal nodes. There is evidence of multiple hepatic metastases as well. There is a nonobstructing right renal calyceal stone. ASSESSMENT AND PLAN: In summary, the patient is a 62-year-old female with a unfortunate history of endometrial cancer, which has spread and reached the stage of widespread adenopathy and bulky mass in the retroperitoneum. This mass is displacing other organs and has enveloped the left ureter and causing left hydroureteronephrosis. The patient presented with anemia and severe leukocytosis and evidence of urinary tract infection. Physical exam reveals an older woman who is not really alert. Laboratory data is notable for severe leukocytosis with a white blood cell count of 75. Urinalysis is essentially unremarkable. Diagnostic imaging reveals the findings as described above. Unfortunately, there is not much to offer for this elderly debilitated patient with metastatic cancer. Given that her left ureter is almost certainly enveloped into the large retroperitoneal mass, the best option will be a nephrostomy tube to drain her kidney and maintain her function on that side. This would be especially important in the setting of the need for chemotherapy, some of the chemotherapy agents can be nephrotoxic. The odds of getting a double-J stent in from below are low given the obstructive mass and the size of the mass as well as the patient's overall condition and poor candidacy for general anesthesia. Thank you for allowing me to participate in the care of this unfortunate lady. Please do not hesitate to contact me with any questions that you may further have regarding her care. I will be available to see her with you as needed. Delfino Yanira, M.D. DR: PERLA JOB#: [id number] CC:
[2017-05-13 10:47] LABS: ANISOCYTOSIS 1+; BAND NEUTROPHILS % (MANUAL) 2 % (0-8); BASOPHILS % (MANUAL) 0 % (0-2); EOSINOPHILS % (MANUAL) 0 % (0-3); HYPOCHROMASIA 1+; LYMPHOCYTES % (MANUAL) 6 % (20-45); NEUTROPHILS % (MANUAL) 90 % (45-75); PLATELET ESTIMATE INCREASED; PLATELET MORPHOLOGY NORMAL; TOTAL CELLS COUNTED 100
--- NOTE | 2017-05-13 11:07 | Diagnostic Imaging Report ---
Indication: DYSPNEA Technique: One view of the chest Comparison: 05/06/2017 Findings: The left hemithorax is now obscured. Lungs and pleural spaces otherwise clear. Heart size is normal. Impression: Obscured left hemidiaphragm, could indicate left basilar infiltrate, atelectasis, or small pleural effusion. This is new since 05/06/2017
[2017-05-13 12:00] VITALS: BP 121/77
--- NOTE | 2017-05-13 12:33 | Infectious Diseases Prog Note ---
Assessment/Plan Assessment/Plan // Leukomoid reaction - suspect myeloproliferative d/o, with a component of possible infected necrotic left retroperitoneal mass, protictis/sigmoid colitis and endometritis- heme following, Jak2 pending ( CA, DVT contributing ) -Bcx NTD -u/a neg; ucx E,coli (byrne S)- consistent with asymptomatic bacteriuria -CT abd/p: Abnormal uterus and endometrium, as described, consistent with stated clinical history of endometrial carcinoma. Large mass in the left retroperitoneum, presumably confluent metastatic adenopathy. This erodes the L2 , L3, and L4 vertebral bodies, and displaces surrounding organs as described. It is necrotic centrally. Other smaller enlarged enlarged retroperitoneal nodes , likewise consistent with metastatic adenopathy. Moderate left hydronephrosis, due to ureteral obstruction either by large mass or more distal nodes. Multiple hepatic masses, consistent with liver metastases. Trace free intraperitoneal fluid, most likely representing malignant ascites. Other evidence of anasarca, with with bilateral left greater than right pleural effusions and edema of the subcutaneous fat. Nonobstructive right renal calyceal calculus. Mild wall thickening of the rectum , equivocal mild wall thickening of the sigmoid, the latter most likely artifact of under distention. Proctitis/sigmoid colitis not completely excludable. Diverticulosis. No evidence of diverticulitis. Cholelithiasis. Reyes catheter in the bladder. Air within the bladder is presumably related to such. //Large Mass L retroperitoneum- ?related to known endometrial CA vs other malignancy. Evidence of metastatic disease on CT //Oropharyngeal thrush // Endometrial CA - no treatment to date; ?endometritis- -Pelvic US: Markedly abnormal thickened heterogeneous endometrium. Possibilities include endometritis, neoplasm. Gynecological evaluation recommended. Further evaluation with MRI may be useful as clinically indicated. Free pelvic fluid. Etiology indeterminate, but not physiologic in a postmenopausal female. Nonvisualized ovaries //Diarrhea- neg Cdiff 05/13 // Stage IV sacral decubitus ulcer POA, not grossly infected - surveillance WCx : +4 EColi(Byrne S),+4 P Mirabilis (byrne S) , +3 Diphtheroids, +2 GBS ( Colonizer ) no intervention as per Plastic Sx // Severe symptomatic microcytic anemia SP PRBCs - denies blood loss // Acute and chronic RLE DVT - SP IVC filter 05/07 // Thrombocytosis // DM2 // Physical deconditioning // NKDA // Full Code //VRE colonized PLAN: -If consistent with goals of care: -Continue Nystatin swish and swallow #2/ for thrush- if not improving in the next 24- 48hrs, will start PO fluconazole - continue empiric IV zosyn d# 8/10-14 for possible endometritis, collitis and possible infected necrotic mass; upon discharge can be transitioned to PO Cipro and flagyl ( 05/11 SP IV Vancomycin #6) ( 05/06 SP amikacin d# 1 ) -D/c empiric Flagyl #4 as neg Cdiff. -Consideration for hospice ongoing - f/u cultures - f/u Jak2; - monitor CBC, temperatures - monitor BMP - transfuse as needed - wound care - PT/OT Discussed with family at bedside. Subjective Allergies: Coded Allergies: No Known Allergies (Unverified , 05/05/17) Subjective afebrile bcx NTD Objective Vital Signs Last 24 Hour Vital Signs Date Time Temp Pulse Resp B/P (MAP) Pulse Ox O2 Delivery O2 Flow Rate FiO2 05/13/17 08:00 98.2 128 19 97/64 98 Nasal Cannula 2.0 05/13/17 07:20 96 Nasal Cannula 2.0 28 05/13/17 07:20 Nasal Cannula 2.0 28 05/13/17 04:00 98.0 109 20 107/56 97 Nasal Cannula 05/13/17 00:00 98.1 106 20 105/63 97 Nasal Cannula 2.0 05/12/17 21:20 108 18 109/60 98 Nasal Cannula 2.0 05/12/17 21:09 Room Air 05/12/17 21:06 97.7 114 18 83/68 95 Room Air 05/12/17 20:00 97.7 114 20 83/68 95 Room Air 05/12/17 16:00 98.2 121 20 104/54 97 Nasal Cannula 2.0 Height (Feet): 5 Height (Inches): 5.00 Weight (Pounds): 110 Objective General Appearance: no acute distress, cachetic HEENT: mucous membranes moist, +thrust pharynx and soft palate Respiratory/Chest: lungs clear Cardiovascular: normal rate Abdomen: soft, non tender Extremities: no edema Neurologic/Psychiatric: alert, responsive Musculoskeletal: atrophy Microbiology Date/Time Source Procedure Growth Status 05/13/17 05:15 Stool Clostridium difficile Toxin Assay - Final Complete Laboratory Tests Test 05/13/17 05:35 White Blood Count 49.4 K/UL (4.8-10.8) *H Red Blood Count 3.44 M/UL (4.20-5.40) L Hemoglobin 9.0 G/DL (12.0-16.0) L Hematocrit 28.2 % (37.0-47.0) L Mean Corpuscular Volume 82 FL (80-99) Mean Corpuscular Hemoglobin 26.1 PG (27.0-31.0) L Mean Corpuscular Hemoglobin Concent 31.8 G/DL (32.0-36.0) L Red Cell Distribution Width 19.5 % (11.6-14.8) H Platelet Count 811 K/UL (150-450) H Mean Platelet Volume 5.3 FL (6.5-10.1) L Neutrophils (%) (Auto) % (45.0-75.0) Lymphocytes (%) (Auto) % (20.0-45.0) Monocytes (%) (Auto) % (1.0-10.0) Eosinophils (%) (Auto) % (0.0-3.0) Basophils (%) (Auto) % (0.0-2.0) Differential Total Cells Counted 100 Neutrophils % (Manual) 90 % (45-75) H Lymphocytes % (Manual) 6 % (20-45) L Monocytes % (Manual) 2 % (1-10) Eosinophils % (Manual) 0 % (0-3) Basophils % (Manual) 0 % (0-2) Band Neutrophils 2 % (0-8) Platelet Estimate Increased H Platelet Morphology Normal Hypochromasia 1+ Anisocytosis 1+ Prothrombin Time 13.0 SEC (9.30-11.50) H Prothromb Time International Ratio 1.2 (0.9-1.1) H Activated Partial Thromboplast Time 30 SEC (23-33) Sodium Level 139 MMOL/L (136-145) Potassium Level 2.5 MMOL/L (3.5-5.1) *L Chloride Level 101 MMOL/L (98-107) Carbon Dioxide Level 27 MMOL/L (21-32) Anion Gap 10 mmol/L (5-15) Blood Urea Nitrogen 10 mg/dL (7-18) Creatinine 0.7 MG/DL (0.55-1.30) Estimat Glomerular Filtration Rate > 60 mL/min (>60) Glucose Level 104 MG/DL (74-106) Calcium Level 8.3 MG/DL (8.5-10.1) L Phosphorus Level 3.7 MG/DL (2.5-4.9) Magnesium Level 1.8 MG/DL (1.8-2.4) Total Bilirubin 0.2 MG/DL (0.2-1.0) Aspartate Amino Transf (AST/SGOT) 9 U/L (15-37) L Alanine Aminotransferase (ALT/SGPT) < 6 U/L (12-78) L Alkaline Phosphatase 191 U/L (46-116) H Total Protein 5.8 G/DL (6.4-8.2) L Albumin 1.6 G/DL (3.4-5.0) L Globulin 4.2 g/dL Albumin/Globulin Ratio 0.4 (1.0-2.7) L HIV (1&2) Antibody Rapid Negative (NEGATIVE) Current Medications Medications (Trade) Dose Ordered Sig/Maria Del Carmen Route PRN Reason Start Time Stop Time Status Last Admin Dose Admin Acetaminophen (Tylenol) 650 mg Q4H PRN ORAL fever 05/08/17 04:15 06/04/17 20:14 05/09/17 17:42 Al Hydroxide/Mg Hydroxide (Mylanta II) 30 ml Q6H PRN ORAL dyspepsia 05/08/17 02:15 06/04/17 20:14 Baclofen (Lioresal) 10 mg EVERY 12 HOURS ORAL 05/08/17 09:00 06/04/17 20:59 05/13/17 09:30 Dextrose (Dextrose 50%) STAT PRN IV Hypoglycemia 05/08/17 20:15 06/04/17 20:14 Haloperidol Lactate (Haldol) 2 mg Q4H PRN IM Agitation 05/12/17 19:45 06/11/17 19:44 Hydroxyurea (Hydrea) 500 mg TID ORAL 05/10/17 09:00 05/14/17 08:59 05/13/17 09:31 Insulin Aspart (NovoLOG) BEFORE MEALS AND HS SUBQ 05/08/17 06:30 06/04/17 20:59 05/13/17 05:46 Metronidazole (Flagyl) 500 mg Q8HR ORAL 05/10/17 14:00 05/17/17 13:59 05/13/17 05:43 Morphine Sulfate (Morphine Sulfate) 2 mg Q4H PRN IVP Severe Pain (Pain Scale 7-10) 05/12/17 21:30 05/19/17 21:29 05/13/17 11:16 Nystatin (Nystatin) 5 ml QID ORAL 05/12/17 14:00 05/19/17 13:59 05/13/17 09:31 Ondansetron HCl (Zofran) 4 mg Q6H PRN IVP Nausea & Vomiting 05/08/17 02:15 06/04/17 20:14 Oxycodone HCl (Roxicodone) 10 mg Q4H PRN ORAL Breakthrough Pain 05/12/17 21:15 05/19/17 21:14 05/12/17 21:12 Piperacillin/ Tazobactam/ Dextrose 50 ml @ 12.5 mls/hr EVERY 8 HOURS IVPB 05/08/17 22:00 05/13/17 17:59 05/13/17 05:43 Polyethylene Glycol (Miralax) 17 gm HSPRN PRN ORAL Constipation 05/08/17 02:15 06/07/17 02:14 Potassium Chloride 100 ml @ 100 mls/hr Q1H IVPB 05/13/17 08:00 05/13/17 13:59 05/13/17 11:17 Josi Villafuerte M.D. May 13, 2017 12:33
[2017-05-13] MEDS: oxyCODONE 5mg IR tab ORAL PRN (13:35)
[2017-05-13] MEDS: PCA Morphine 1mg/ml 30 ML IV SCH ×2 (15:21→22:13)
[2017-05-13 16:00] VITALS: BP 117/70
--- NOTE | 2017-05-13 18:39 | Pulmonology Progress Note ---
Assessment/Plan Problems: (1) Anemia (2) Leukocytosis (3) Diabetes mellitus (4) Endometrial cancer Assessment/Plan discussed with pts sister, she signed the consent for hospice and now she wants morphine drip comfort care including stopping iv abx and new blood testing keep comfortable Subjective ROS Limited/Unobtainable: No Constitutional: Reports: no symptoms HEENT: Repors: no symptoms Respiratory: Reports: no symptoms Allergies: Coded Allergies: No Known Allergies (Unverified , 05/05/17) Objective Last 24 Hour Vital Signs Date Time Temp Pulse Resp B/P (MAP) Pulse Ox O2 Delivery O2 Flow Rate FiO2 05/13/17 16:00 98.2 103 19 117/70 97 Nasal Cannula 05/13/17 12:00 98.1 121 18 121/77 98 Nasal Cannula 2.0 05/13/17 08:00 98.2 128 19 97/64 98 Nasal Cannula 2.0 05/13/17 07:20 96 Nasal Cannula 2.0 28 05/13/17 07:20 Nasal Cannula 2.0 28 05/13/17 04:00 98.0 109 20 107/56 97 Nasal Cannula 05/13/17 00:00 98.1 106 20 105/63 97 Nasal Cannula 2.0 05/12/17 21:20 108 18 109/60 98 Nasal Cannula 2.0 05/12/17 21:09 Room Air 05/12/17 21:06 97.7 114 18 83/68 95 Room Air 05/12/17 20:00 97.7 114 20 83/68 95 Room Air Intake and Output 05/13/17 05/14/17 19:00 07:00 Intake Total 337.5 ml Balance 337.5 ml IV Total 337.5 ml General Appearance: no acute distress, cachetic HEENT: atraumatic Respiratory/Chest: chest wall non-tender, lungs clear Cardiovascular: normal peripheral pulses, normal rate Abdomen: normal bowel sounds, soft, non tender Extremities: no cyanosis Skin: no rash 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 Microbiology Date/Time Source Procedure Growth Status 05/13/17 05:15 Stool Clostridium difficile Toxin Assay - Final Complete Laboratory Tests 05/13/17 05:35: White Blood Count 49.4*H, Red Blood Count 3.44L, Hemoglobin 9.0L, Hematocrit 28.2L, Mean Corpuscular Volume 82, Mean Corpuscular Hemoglobin 26.1L, Mean Corpuscular Hemoglobin Concent 31.8L, Red Cell Distribution Width 19.5H, Platelet Count 811H, Mean Platelet Volume 5.3L, Neutrophils (%) (Auto) , Lymphocytes (%) (Auto) , Monocytes (%) (Auto) , Eosinophils (%) (Auto) , Basophils (%) (Auto) , Differential Total Cells Counted 100, Neutrophils % ( Manual) 90H, Lymphocytes % (Manual) 6L, Monocytes % (Manual) 2, Eosinophils % ( Manual) 0, Basophils % (Manual) 0, Band Neutrophils 2, Platelet Estimate IncreasedH, Platelet Morphology Normal, Hypochromasia 1+, Anisocytosis 1+, Prothrombin Time 13.0H, Prothromb Time International Ratio 1.2H, Activated Partial Thromboplast Time 30, Sodium Level 139, Potassium Level 2.5*L, Chloride Level 101, Carbon Dioxide Level 27, Anion Gap 10, Blood Urea Nitrogen 10, Creatinine 0.7, Estimat Glomerular Filtration Rate > 60, Glucose Level 104, Calcium Level 8.3L, Phosphorus Level 3.7, Magnesium Level 1.8, Total Bilirubin 0.2, Aspartate Amino Transf (AST/SGOT) 9L, Alanine Aminotransferase (ALT/SGPT) < 6L, Alkaline Phosphatase 191H, Total Protein 5.8L, Albumin 1.6L, Globulin 4.2 , Albumin/Globulin Ratio 0.4L, HIV (1&2) Antibody Rapid Negative Current Medications Medications (Trade) Dose Ordered Sig/Maria Del Carmen Route PRN Reason Start Time Stop Time Status Last Admin Dose Admin Acetaminophen (Tylenol) 650 mg Q4H PRN ORAL fever 05/08/17 04:15 06/04/17 20:14 05/09/17 17:42 Al Hydroxide/Mg Hydroxide (Mylanta II) 30 ml Q6H PRN ORAL dyspepsia 05/08/17 02:15 06/04/17 20:14 Dextrose (Dextrose 50%) STAT PRN IV Hypoglycemia 05/08/17 20:15 06/04/17 20:14 Haloperidol Lactate (Haldol) 2 mg Q4H PRN IM Agitation 05/12/17 19:45 06/11/17 19:44 Morphine Sulfate 30 ml @ 10 mls/hr [employer]ATE PROTOCOL IV 05/13/17 15:00 05/15/17 14:59 Morphine Sulfate (Morphine Sulfate) 2 mg Q2H PRN IVP Severe Pain (Pain Scale 7-10) 05/13/17 16:45 05/20/17 16:44 05/13/17 18:33 Ondansetron HCl (Zofran) 4 mg Q6H PRN IVP Nausea & Vomiting 05/08/17 02:15 06/04/17 20:14 Oxycodone HCl (Roxicodone) 10 mg Q4H PRN ORAL Breakthrough Pain 05/12/17 21:15 05/19/17 21:14 05/13/17 13:35 Polyethylene Glycol (Miralax) 17 gm HSPRN PRN ORAL Constipation 05/08/17 02:15 06/07/17 02:14 RIN CALDWELL May 13, 2017 18:39
--- NOTE | 2017-05-13 21:50 | General Progress Note ---
Assessment/Plan Assessment/Plan ASSESSMENT AND RECS: #. Leukocytosis in the setting of thrombocytosis. Likely is related to infection. Likely related to myeloproliferative disorder as well given counts have not improved --> JAK2 pending --> the patient's dpoa has decided on hospice and comfort care, stopping abx # Endometrial carcinoma, metastatic with a large mass in the retroperitoneum. #. Anemia, secondary to chronic disease. --> hgb goal is >7 #. Thrombocytosis, rule out polycythemia vera versus essential thrombocytosis. JAK2 is pending as well. -->> hold off on bone marrow biopsy, likely will self resolve #. Deep venous thrombosis of the right leg Recommend conservative care, do not place ivc filter given patient asymptomatic # Bedbound status. # Diabetes mellitus. # Recommend conservative care. Subjective ROS Limited/Unobtainable: Yes Allergies: Coded Allergies: No Known Allergies (Unverified , 05/05/17) Subjective disoriented, bed bound Objective Last 24 Hour Vital Signs Date Time Temp Pulse Resp B/P (MAP) Pulse Ox O2 Delivery O2 Flow Rate FiO2 05/13/17 21:06 Nasal Cannula 2.0 28 05/13/17 21:05 97 Nasal Cannula 2.0 28 05/13/17 16:00 98.2 103 19 117/70 97 Nasal Cannula 05/13/17 12:00 98.1 121 18 121/77 98 Nasal Cannula 2.0 05/13/17 08:00 98.2 128 19 97/64 98 Nasal Cannula 2.0 05/13/17 07:20 96 Nasal Cannula 2.0 28 05/13/17 07:20 Nasal Cannula 2.0 28 05/13/17 04:00 98.0 109 20 107/56 97 Nasal Cannula 05/13/17 00:00 98.1 106 20 105/63 97 Nasal Cannula 2.0 Intake and Output 05/13/17 05/14/17 19:00 07:00 Intake Total 337.5 ml Balance 337.5 ml IV Total 337.5 ml Laboratory Tests 05/13/17 05:35: White Blood Count 49.4*H, Red Blood Count 3.44L, Hemoglobin 9.0L, Hematocrit 28.2L, Mean Corpuscular Volume 82, Mean Corpuscular Hemoglobin 26.1L, Mean Corpuscular Hemoglobin Concent 31.8L, Red Cell Distribution Width 19.5H, Platelet Count 811H, Mean Platelet Volume 5.3L, Neutrophils (%) (Auto) , Lymphocytes (%) (Auto) , Monocytes (%) (Auto) , Eosinophils (%) (Auto) , Basophils (%) (Auto) , Differential Total Cells Counted 100, Neutrophils % ( Manual) 90H, Lymphocytes % (Manual) 6L, Monocytes % (Manual) 2, Eosinophils % ( Manual) 0, Basophils % (Manual) 0, Band Neutrophils 2, Platelet Estimate IncreasedH, Platelet Morphology Normal, Hypochromasia 1+, Anisocytosis 1+, Prothrombin Time 13.0H, Prothromb Time International Ratio 1.2H, Activated Partial Thromboplast Time 30, Sodium Level 139, Potassium Level 2.5*L, Chloride Level 101, Carbon Dioxide Level 27, Anion Gap 10, Blood Urea Nitrogen 10, Creatinine 0.7, Estimat Glomerular Filtration Rate > 60, Glucose Level 104, Calcium Level 8.3L, Phosphorus Level 3.7, Magnesium Level 1.8, Total Bilirubin 0.2, Aspartate Amino Transf (AST/SGOT) 9L, Alanine Aminotransferase (ALT/SGPT) < 6L, Alkaline Phosphatase 191H, Total Protein 5.8L, Albumin 1.6L, Globulin 4.2 , Albumin/Globulin Ratio 0.4L, HIV (1&2) Antibody Rapid Negative Height (Feet): 5 Height (Inches): 5.00 Weight (Pounds): 110 General Appearance: moderate distress EENT: normal ENT inspection Neck: normal alignment Cardiovascular: no gallop/murmur Edema: moderate edema Neurologic: disoriented Skin: warm/dry Yong Jeong May 13, 2017 21:50
[2017-05-14] MEDS: PCA Morphine 1mg/ml 30 ML IV SCH ×8 (01:09→22:33)
--- NOTE | 2017-05-14 09:28 | Wound Nurse Progress Note ---
Wound RN Progress Note Wound Consult attempted to reassess wounds, patient refused at this time, stating"no,not a good time". will continue to follow up. JAZ ALLEN May 14, 2017 09:28
[2017-05-14] MEDS ORDERED: NS 275ml ONE ×2 (10:41→10:44)
--- NOTE | 2017-05-14 12:23 | Infectious Diseases Prog Note ---
Assessment/Plan Assessment/Plan // Leukomoid reaction - suspect myeloproliferative d/o, with a component of possible infected necrotic left retroperitoneal mass, protictis/sigmoid colitis and endometritis- heme following, Jak2 pending ( CA, DVT contributing ) -Bcx NTD -u/a neg; ucx E,coli (byrne S)- consistent with asymptomatic bacteriuria -CT abd/p: Abnormal uterus and endometrium, as described, consistent with stated clinical history of endometrial carcinoma. Large mass in the left retroperitoneum, presumably confluent metastatic adenopathy. This erodes the L2 , L3, and L4 vertebral bodies, and displaces surrounding organs as described. It is necrotic centrally. Other smaller enlarged enlarged retroperitoneal nodes , likewise consistent with metastatic adenopathy. Moderate left hydronephrosis, due to ureteral obstruction either by large mass or more distal nodes. Multiple hepatic masses, consistent with liver metastases. Trace free intraperitoneal fluid, most likely representing malignant ascites. Other evidence of anasarca, with with bilateral left greater than right pleural effusions and edema of the subcutaneous fat. Nonobstructive right renal calyceal calculus. Mild wall thickening of the rectum , equivocal mild wall thickening of the sigmoid, the latter most likely artifact of under distention. Proctitis/sigmoid colitis not completely excludable. Diverticulosis. No evidence of diverticulitis. Cholelithiasis. Reyes catheter in the bladder. Air within the bladder is presumably related to such. //Large Mass L retroperitoneum- ?related to known endometrial CA vs other malignancy. Evidence of metastatic disease on CT //Oropharyngeal thrush // Endometrial CA - no treatment to date; ?endometritis- -Pelvic US: Markedly abnormal thickened heterogeneous endometrium. Possibilities include endometritis, neoplasm. Gynecological evaluation recommended. Further evaluation with MRI may be useful as clinically indicated. Free pelvic fluid. Etiology indeterminate, but not physiologic in a postmenopausal female. Nonvisualized ovaries //Diarrhea- neg Cdiff 05/13 // Stage IV sacral decubitus ulcer POA, not grossly infected - surveillance WCx : +4 EColi(Byrne S),+4 P Mirabilis (byrne S) , +3 Diphtheroids, +2 GBS ( Colonizer ) no intervention as per Plastic Sx // Severe symptomatic microcytic anemia SP PRBCs - denies blood loss // Acute and chronic RLE DVT - SP IVC filter 05/07 // Thrombocytosis // DM2 // Physical deconditioning // NKDA // Full Code //VRE colonized PLAN: Patient made comfort care, antibiotics were stopped. She is now on morphine drip. ID will sign off. Call if needed. Subjective Allergies: Coded Allergies: No Known Allergies (Unverified , 05/05/17) Subjective patient made comfort care Objective Vital Signs Last 24 Hour Vital Signs Date Time Temp Pulse Resp B/P (MAP) Pulse Ox O2 Delivery O2 Flow Rate FiO2 05/14/17 10:05 8 05/14/17 07:08 10 05/14/17 04:10 12 05/14/17 01:09 12 05/14/17 00:19 13 05/13/17 23:49 15 05/13/17 23:19 16 05/13/17 23:04 16 05/13/17 22:49 16 05/13/17 22:34 18 05/13/17 22:20 18 05/13/17 21:06 Nasal Cannula 2.0 28 05/13/17 21:05 97 Nasal Cannula 2.0 28 05/13/17 16:00 98.2 103 19 117/70 97 Nasal Cannula Height (Feet): 5 Height (Inches): 5.00 Weight (Pounds): 110 Objective not performed per patient request Microbiology Date/Time Source Procedure Growth Status 05/13/17 05:15 Stool Clostridium difficile Toxin Assay - Final Complete Current Medications Medications (Trade) Dose Ordered Sig/Maria Del Carmen Route PRN Reason Start Time Stop Time Status Last Admin Dose Admin Acetaminophen (Tylenol) 650 mg Q4H PRN ORAL fever 05/08/17 04:15 06/04/17 20:14 05/09/17 17:42 Al Hydroxide/Mg Hydroxide (Mylanta II) 30 ml Q6H PRN ORAL dyspepsia 05/08/17 02:15 06/04/17 20:14 Dextrose (Dextrose 50%) STAT PRN IV Hypoglycemia 05/08/17 20:15 06/04/17 20:14 Haloperidol Lactate (Haldol) 2 mg Q4H PRN IM Agitation 05/12/17 19:45 06/11/17 19:44 Morphine Sulfate 30 ml @ 10 mls/hr CREW MESS ATTENDANT PROTOCOL IV 05/13/17 15:00 05/15/17 14:59 05/14/17 10:05 Morphine Sulfate (Morphine Sulfate) 2 mg Q2H PRN IVP Severe Pain (Pain Scale 7-10) 05/13/17 16:45 05/20/17 16:44 05/13/17 20:33 Ondansetron HCl (Zofran) 4 mg Q6H PRN IVP Nausea & Vomiting 05/08/17 02:15 06/04/17 20:14 05/14/17 08:21 Oxycodone HCl (Roxicodone) 10 mg Q4H PRN ORAL Breakthrough Pain 05/12/17 21:15 05/19/17 21:14 05/13/17 13:35 Polyethylene Glycol (Miralax) 17 gm HSPRN PRN ORAL Constipation 05/08/17 02:15 06/07/17 02:14 Josi Villafuerte M.D. May 14, 2017 12:23
[2017-05-14 15:59] VITALS: BP 107/60
--- NOTE | 2017-05-14 19:13 | Pulmonology Progress Note ---
Assessment/Plan Problems: (1) Endometrial cancer (2) Anemia (3) Leukocytosis (4) Diabetes mellitus Assessment/Plan on morphine drip as requested by pt and family comfort care including stopping iv abx and new blood testing keep comfortable Subjective ROS Limited/Unobtainable: No Constitutional: Reports: no symptoms HEENT: Repors: no symptoms Respiratory: Reports: no symptoms Allergies: Coded Allergies: No Known Allergies (Unverified , 05/05/17) Objective Last 24 Hour Vital Signs Date Time Temp Pulse Resp B/P (MAP) Pulse Ox O2 Delivery O2 Flow Rate FiO2 05/14/17 16:15 7 05/14/17 13:10 7 05/14/17 10:05 8 05/14/17 07:08 10 05/14/17 04:10 12 05/14/17 01:09 12 05/14/17 00:19 13 05/13/17 23:49 15 05/13/17 23:19 16 05/13/17 23:04 16 05/13/17 22:49 16 05/13/17 22:34 18 05/13/17 22:20 18 05/13/17 21:06 Nasal Cannula 2.0 28 05/13/17 21:05 97 Nasal Cannula 2.0 28 General Appearance: cachetic HEENT: normocephalic Respiratory/Chest: decreased breath sounds Cardiovascular: normal peripheral pulses Microbiology Date/Time Source Procedure Growth Status 05/13/17 05:15 Stool Clostridium difficile Toxin Assay - Final Complete Current Medications Medications (Trade) Dose Ordered Sig/Maria Del Carmen Route PRN Reason Start Time Stop Time Status Last Admin Dose Admin Acetaminophen (Tylenol) 650 mg Q4H PRN ORAL fever 05/08/17 04:15 06/04/17 20:14 05/09/17 17:42 Al Hydroxide/Mg Hydroxide (Mylanta II) 30 ml Q6H PRN ORAL dyspepsia 05/08/17 02:15 06/04/17 20:14 Dextrose (Dextrose 50%) STAT PRN IV Hypoglycemia 05/08/17 20:15 06/04/17 20:14 Haloperidol Lactate (Haldol) 2 mg Q4H PRN IM Agitation 05/12/17 19:45 06/11/17 19:44 Morphine Sulfate 30 ml @ 10 mls/hr MANDREL MAKER PROTOCOL IV 05/13/17 15:00 05/15/17 14:59 10/26/17 16:19 Morphine Sulfate (Morphine Sulfate) 2 mg Q2H PRN IVP Severe Pain (Pain Scale 7-10) 05/13/17 16:45 05/20/17 16:44 05/13/17 20:33 Ondansetron HCl (Zofran) 4 mg Q6H PRN IVP Nausea & Vomiting 05/08/17 02:15 06/04/17 20:14 05/14/17 08:21 Oxycodone HCl (Roxicodone) 10 mg Q4H PRN ORAL Breakthrough Pain 05/12/17 21:15 05/19/17 21:14 05/13/17 13:35 Polyethylene Glycol (Miralax) 17 gm HSPRN PRN ORAL Constipation 05/08/17 02:15 06/07/17 02:14 RIN CALDWELL May 14, 2017 19:13
--- NOTE | 2017-05-14 20:30 | General Progress Note ---
Assessment/Plan Assessment/Plan ASSESSMENT AND RECS: #. Leukocytosis in the setting of thrombocytosis. Likely is related to infection. Likely related to myeloproliferative disorder as well given counts have not improved --> JAK2 pending --> the patient's dpoa has decided on hospice and comfort care, stopping abx # Endometrial carcinoma, metastatic with a large mass in the retroperitoneum. #. Anemia, secondary to chronic disease. --> hgb goal is >7 #. Thrombocytosis, rule out polycythemia vera versus essential thrombocytosis. JAK2 is pending as well. -->> hold off on bone marrow biopsy, likely will self resolve #. Deep venous thrombosis of the right leg Recommend conservative care, do not place ivc filter given patient asymptomatic # Bedbound status. # Diabetes mellitus. # Recommend conservative care. Subjective Constitutional: Reports: weakness Allergies: Coded Allergies: No Known Allergies (Unverified , 05/05/17) All Systems: reviewed and negative except above Subjective on morphine drip Objective Last 24 Hour Vital Signs Date Time Temp Pulse Resp B/P (MAP) Pulse Ox O2 Delivery O2 Flow Rate FiO2 05/14/17 16:15 7 05/14/17 13:10 7 05/14/17 10:05 8 05/14/17 07:08 10 05/14/17 04:10 12 05/14/17 01:09 12 05/14/17 00:19 13 05/13/17 23:49 15 05/13/17 23:19 16 05/13/17 23:04 16 05/13/17 22:49 16 05/13/17 22:34 18 05/13/17 22:20 18 05/13/17 21:06 Nasal Cannula 2.0 28 05/13/17 21:05 97 Nasal Cannula 2.0 28 Height (Feet): 5 Height (Inches): 5.00 Weight (Pounds): 110 General Appearance: no apparent distress EENT: normal ENT inspection Neck: supple, normal inspection Abdomen: no mass Yong Jeong May 14, 2017 20:30
[2017-05-15] MEDS: PCA Morphine 1mg/ml 30 ML IV SCH ×5 (01:36→14:09)
--- NOTE | 2017-05-15 08:53 | Pulmonology Progress Note ---
Assessment/Plan Assessment/Plan ASSESSMENT possible sepsis due to possible endometritis versus colitis versus possibly infected necrotic mass acute symptomatic anemia requiring blood transfusion anemia of malignancy anemia of chronic disease severe leukocytosis - 2 to infection vs myeloproliferative disorder vs leukemoid reaction ( Ca an DVT likely contributing as well) leukemoid reaction endometrium Ca with metastasis metastatic disease possible endometritis possible colitis possible infected necrotic mass moderate left hydronephrosis with obstructive uropathy (due to ureteral obstruction either by large mass or more distal nodes DM acute DVT RLE thrombocytosis sacral decub st 4 POA L buttock and R trochanter DTI POA severe protein calorie malnutrition functional quadriplegia comfort/care PLAN OF CARE MS floor family decided on comfort care on MS gtt O2 prn skin care oral hygiene before; HH at baseline, no trend down anemia w/up c/w anemia of chronic disease monitor counts and transfuse if Hgb below 7.5 leukocytosis with trend up, still significant, ID follows abx urine cx +Ecoli infection-vs colonization, no significant pyuria or bacteriuria as per ID notes pelvic us noted , c/w known hx of endometrium malignancy CT A/P noted significant leukocytosis possibly due to infection vs myeloproliferative disorder vs leukemoid reaction heme follows BM biopsy cancelled due to overall poor prognosis Arvind 2 PLT elevated wound care as per wound nurse recommendations plastic surgery eval appreciated per surgeon patient does not need urgent surgical intervention plastic surgeon doubt that sacral decub is a a source of leucocytosis recommended optimize nutritional status nutritional supplements added as per dietary recommendations pain management bowel regimen venous Duplex + acute RLE DVT per heme recommended supportive care , no IVC filter DVT prophylaxis DNR DNI status case discussed and evaluated by supervising physician Subjective Allergies: Coded Allergies: No Known Allergies (Unverified , 05/05/17) Subjective comfort care on Morphine gtt Objective Last 24 Hour Vital Signs Date Time Temp Pulse Resp B/P (MAP) Pulse Ox O2 Delivery O2 Flow Rate FiO2 05/15/17 04:45 8 05/15/17 01:40 7 05/15/17 01:39 7 05/14/17 22:33 7 05/14/17 21:33 Nasal Cannula 2.0 28 05/14/17 16:15 7 05/14/17 13:10 7 05/14/17 10:05 8 Objective General Appearance: lethargic, cachetic, bedridden chronically ill looking female HEENT: normocephalic, atraumatic, anicteric, mucous membranes moist Respiratory/Chest: lungs clear, no respiratory distress Cardiovascular: normal rate, regular rhythm, no JVD Abdomen: normal bowel sounds, soft, non tender Extremities: no edema, pedal pulses normal Skin: sacral decub st 4, L buttock and R trochanter DTI -all POA Neurologic/Psychiatric: abnormal gait, alert, responsive Musculoskeletal: atrophy - BLE Microbiology Date/Time Source Procedure Growth Status 05/13/17 05:15 Stool Clostridium difficile Toxin Assay - Final Complete Current Medications Medications (Trade) Dose Ordered Sig/Maria Del Carmen Route PRN Reason Start Time Stop Time Status Last Admin Dose Admin Acetaminophen (Tylenol) 650 mg Q4H PRN ORAL fever 05/08/17 04:15 06/04/17 20:14 05/09/17 17:42 Al Hydroxide/Mg Hydroxide (Mylanta II) 30 ml Q6H PRN ORAL dyspepsia 05/08/17 02:15 06/04/17 20:14 Dextrose (Dextrose 50%) STAT PRN IV Hypoglycemia 05/08/17 20:15 06/04/17 20:14 Haloperidol Lactate (Haldol) 2 mg Q4H PRN IM Agitation 05/12/17 19:45 06/11/17 19:44 Morphine Sulfate 30 ml @ 10 mls/hr DIFFUSION OPERATOR PROTOCOL IV 05/13/17 15:00 05/15/17 14:59 05/15/17 08:00 Morphine Sulfate (Morphine Sulfate) 2 mg Q2H PRN IVP Severe Pain (Pain Scale 7-10) 05/13/17 16:45 05/20/17 16:44 05/13/17 20:33 Ondansetron HCl (Zofran) 4 mg Q6H PRN IVP Nausea & Vomiting 05/08/17 02:15 06/04/17 20:14 05/14/17 08:21 Oxycodone HCl (Roxicodone) 10 mg Q4H PRN ORAL Breakthrough Pain 05/12/17 21:15 05/19/17 21:14 05/13/17 13:35 Polyethylene Glycol (Miralax) 17 gm HSPRN PRN ORAL Constipation 05/08/17 02:15 06/07/17 02:14 Lisa Lal NP (Vanchtein) May 15, 2017 08:53
--- NOTE | 2017-05-15 12:30 | General Progress Note ---
Assessment/Plan Assessment/Plan ASSESSMENT AND RECS: #. Leukocytosis in the setting of thrombocytosis. Likely is related to infection. Likely related to myeloproliferative disorder as well given counts have not improved --> JAK2 pending --> the patient's dpoa has decided on hospice and comfort care, stopping abx # Endometrial carcinoma, metastatic with a large mass in the retroperitoneum. #. Anemia, secondary to chronic disease. --> hgb goal is >7 #. Thrombocytosis, rule out polycythemia vera versus essential thrombocytosis. JAK2 is pending as well. -->> hold off on bone marrow biopsy, likely will self resolve #. Deep venous thrombosis of the right leg Recommend conservative care, do not place ivc filter given patient asymptomatic # Bedbound status. # Diabetes mellitus. # Recommend conservative care. Subjective ROS Limited/Unobtainable: Yes Allergies: Coded Allergies: No Known Allergies (Unverified , 05/05/17) Subjective comfort care Objective Last 24 Hour Vital Signs Date Time Temp Pulse Resp B/P (MAP) Pulse Ox O2 Delivery O2 Flow Rate FiO2 05/15/17 11:36 98.2 05/15/17 09:16 68 Room Air 05/15/17 09:15 Room Air 21 05/15/17 09:00 6 05/15/17 04:45 8 05/15/17 01:40 7 05/15/17 01:39 7 05/14/17 22:33 7 05/14/17 21:33 Nasal Cannula 2.0 28 05/14/17 16:15 7 05/14/17 13:10 7 Height (Feet): 5 Height (Inches): 5.00 Weight (Pounds): 110 General Appearance: cachetic Neurologic: unresponsive Skin: warm/dry Yong Jeong May 15, 2017 12:30
[2017-05-15] MEDS ORDERED: Rate Change PCA 1 Each MISC PRN (16:15)
[2017-05-15] MEDS ORDERED: PCA Morphine 1mg/ml 30 ML IV PRN (16:15)
[2017-05-15] MEDS ORDERED: PCA Education Pamphlet MISC ONE (16:15)
[2017-05-15] MEDS ORDERED: Morphine Sulfate 4mg/ml Inj SUBQ PRN (17:00)
[2017-05-15] MEDS ORDERED: Morphine Sulfate 4mg/ml Inj IVP PRN (17:00)
[2017-05-15] MEDS: PCA Morphine 1mg/ml 30 ML IV PRN ×3 (17:28→23:11)
[2017-05-15] MEDS ORDERED: PCA shift volume MISC SCH (19:00)
[2017-05-16] MEDS ORDERED: NS 500ML IV ONE (03:59)
--- NOTE | 2017-05-19 08:44 | Discharge Summary ---
Discharge Summary Hospital Course Date of Admission May 05, 2017 at 14:54 Date of Discharge May 16, 2017 at 04:00 Admitting Diagnosis anemia GLENNY Martinez is a 62 year old female who was admitted on May 05, 2017 at 14:54 for Anemia Hospital Course summary # [id number] Discharge Discharge Disposition Discharge Diagnoses: Lukasz ([facility]),Lisa CLEANING May 19, 2017 08:44
--- NOTE | 2017-05-20 07:59 | Discharge Summary 2 SIG ---
SUMMARY DATE OF ADMISSION: 05/05/2017 DATE OF EXPIRATION: 05/16/2017 REASON FOR ADMISSION: 62-year-old female with a history of endometrial malignancy and diabetes, bedbound,with decubitus ulcer, presented to emergency department for evaluation. Laboratory workup revealed hemoglobin - 6.4, hematocrit -21.3, WBC -59.1, and platelets -842. The patient was admitted for blood transfusion and further workup. ADMITTING DIAGNOSES: 1. Acute anemia. 2. Severe leukocytosis. 3. Diabetes. 4. Endometrial cancer. HOSPITAL STAY: The patient was admitted. The patient undergone transfusion of packed red blood cells. Hemoglobin and hematocrit were closely monitored. The patient was on IV fluids. ID specialist and Hematology consults were requested. Blood sugar was managed with sliding scale of insulin. The patient was on empiric antibiotics. Urine culture revealed E. coli, per ID- asymptomatic bacteriuria. Repeated urine culture showed Angelica. Blood culture were negative. Stool for C. difficile was negative as well. The patient was checked for chlamydia, gonorrhea, and HIV. All serology was negative. The patient was on empiric antibiotic, as directed by ID specialist. Antibiotics provided for possible endometritis versus colitis versus possibly infected necrotic mass , given significant leukocytosis ( see report for CT abdomen and pelvis below). Pelvic ultrasound revealed markedly abnormal, thickened, and heterogeneous endometrium. Free pelvic fluid. Subsequently, CT of the abdomen and pelvis revealed abnormal uterus and endometrium consistent with history of endometrial carcinoma. Large mass in the left retroperitoneum, necrotic centrally, presumably confluent metastatic adenopathy. Other smaller enlarged retroperitoneal nodes likewise consistent with metastatic adenopathy. Multiple hepatic masses consistent with liver metastasis. Moderate left hydronephrosis due to ureteral obstruction either by large mass or more distal node. Trace intraperitoneal fluid, likely representing malignant ascites. Mild wall thickening of the rectum, equivocal mild wall thickening of the sigmoid, most likely proctitis, sigmoid colitis was not completely excludable. Cholelithiasis. Other evidence of anasarca with bilateral left greater than right pleural effusion and edema or subcutaneous fat. CT of the head revealed no gross acute intracranial bleeding or mass effect, but chronic age related changes. Chest x-ray revealed obscured left hemidiaphragm. Differential included left basilar infiltrate, atelectasis, or small pleural effusion. Based on the clinical exam, most likely pleural effusion versus atelectasis. Grip Assembler /oncologist closely followed. WBC cam to highest of 75 on 2016 and then started to trend down. Hemoglobin and hematocrit after transfusion of packed red blood cells stayed at the baseline. Anemia workup revealed evidence of anemia of chronic disease. Hemoglobin goal was to keep it above 7. The patient also had thrombocytosis. Per bus dispatcher interstate, leukocytosis was likely related to infection, however, differential could not exclude myeloproliferative disorder given counts that have not improved. Initially bone marrow biopsy was planned, but it was cancelled due to change in plan of care. The patient undergone venous duplex of bilateral lower extremities, which revealed acute thrombus in the proximal to distal superficial femoral vein in the right leg. No IVC filter was placed given that the patient was asymptomatic with poor prognosis. Urologist seen and evaluated the patient. According to urologist, the patient had endometrial cancer that spread and reached the stage of widespread adenopathy and bulky mass in the retroperitoneum. The mass was displacing other organs and had enveloped the left ureter, which caused left hydroureteronephrosis. The best option for this patient would be a nephrostomy tube to drain her kidney and maintain function on that side. That would be important in the setting of the need for chemotherapy given that chemotherapy agent could be quite nephrotoxic. However, the odds of getting a double-J stent given the obstructive mass and the size of the mass as well as the patient's overall condition and poor candidacy for general anesthesia were slim. He recommended symptomatic care. Plastic surgeon evaluated the patient for decubitus ulcer stage IV. Per plastic surgeon, decubitus ulcer was not the cause of leukocytosis. The patient with a poor nutritional status, with low albumin level. Per plastic surgeon, the patient did not need urgent surgical intervention. He recommended offloading and pressure relief mattress as well as the improvement in nutritional status. Renal parameters and electrolytes were closely monitored and replaced as needed. Pain management was provided. Wound care was provided as per wound care nurse recommendation. Blood sugar was managed with sliding scale of insulin. The patient on 05/08/2017 was made DNR/DNI status as per family wishes. After the results of the CT of the abdomen and pelvis were explained to sister, given clinical picture and widespread metastatic disease, family chose comfort care. All antibiotics and medications were stopped. All blood draws were stopped. The patient was placed on morphine drip. The patient was provided with supportive care: wound care, bowel regimen, oxygen as needed, pulmonary toilet. Morphine drip was continued. On 05/16/2017 at 01:05, patient was noted to have no spontaneous respiration. No cardiac or breath sounds on auscultation. Pupils were fixed and dilated. No carotid pulse or chest movement. The patient was pronounced at 01:05 on 05/16/2017. CAUSE OF : Cardiopulmonary arrest. FINAL DIAGNOSES: 1. Possible sepsis (possible endometritis versus colitis versus possibly infected necrotic mass. 2. Severe leukocytosis secondary to infection versus myeloproliferative disorder versus leukemoid reaction (malignancy and acute DVT likely contributing to leukocytosis as well). 3. Acute symptomatic anemia requiring blood transfusion. 4. Anemia of malignancy. 5. Anemia of chronic disease. 6. Endometrial carcinoma. 7. Metastatic disease. 8. Acute deep venous thrombosis, right lower extremity. 9. Left hydronephrosis with obstructive uropathy. 10. Diabetes mellitus. 11. Thrombocytosis. 12. Sacral decubitus, stage IV, present on admission. 13. Left buttock and right trochanteric deep tissue injury, present on admission. 14. Severe protein-calorie malnutrition. 15. Functional quadriplegia. 16. Comfort care. . Margarita Mayers M.D. Lisa Drakejulian N.POtto DR: WILDER JOB#: [id number] CC: [id number]
== END 2017-05-16 04:00 | disposition expired | DRG 530 ==
LOC: EDBD 11:59 → EMR 12:40 → 2E 14:54 → EDBEDREQ 17:01 → 2E 18:19 → 4W 05-07 23:37
PROC: 30233N1 Transfusion of Nonautologous Red Blood Cells into Peripheral Vein, Percutaneous Approach (ICD-10-PCS; principal; 2017-05-05)
DX: C54.1 Malignant neoplasm of endometrium (principal); E43 Unspecified severe protein-calorie malnutrition; R18.0 Malignant ascites; L89.154 Pressure ulcer of sacral region, stage 4; I82.411 Acute embolism and thrombosis of right femoral vein; R53.2 Functional quadriplegia; C77.8 Secondary and unspecified malignant neoplasm of lymph nodes of multiple regions; B37.0 Candidal stomatitis; C77.2 Secondary and unspecified malignant neoplasm of intra-abdominal lymph nodes; Z66 Do not resuscitate; Z51.5 Encounter for palliative care; E11.8 Type 2 diabetes mellitus with unspecified complications; N13.1 Hydronephrosis with ureteral stricture, not elsewhere classified; D47.3 Essential (hemorrhagic) thrombocythemia; Z68.1 Body mass index [BMI] 19.9 or less, adult; D63.0 Anemia in neoplastic disease; I95.9 Hypotension, unspecified; I82.5Z1 Chronic embolism and thrombosis of unspecified deep veins of right distal lower extremity; Z74.01 Bed confinement status; R19.7 Diarrhea, unspecified; C78.7 Secondary malignant neoplasm of liver and intrahepatic bile duct; K62.89 Other specified diseases of anus and rectum; S30.0XXA Contusion of lower back and pelvis, initial encounter; Z16.21 Resistance to vancomycin; S70.01XA Contusion of right hip, initial encounter; X58.XXXA Exposure to other specified factors, initial encounter; Y92.9 Unspecified place or not applicable; N39.0 Urinary tract infection, site not specified
CPT/HCPCS: 36415; 36430; 70450; 71010; 74177; 76856; 80048; 80053; 80061; 80202; 81003; 81270; 82270; 82607; 82746; 82962; 83540; 83550; 83615; 83735; 83880; 84100; 84134; 84484; 84550; 85007; 85025; 85044; 85060; 85610; 85651; 85730; 86703; 86850; 86900; 86901; 86920; 87040; 87070; 87081; 87086; 87181; 87205; 87324; 87491; 87590; 93005; 93971; 94760; 99285; J1815; J2405